=== PATIENT | female | born 1985 | race Caucasian/White ===

== ENCOUNTER 2018-07-09 01:20 | Inpatient (IN) | payer MEDICARE, OTHER ==
[2018-07-09] MEDS: NS 1,000 ML IV ×3 (02:30→20:30)
[2018-07-09] MEDS: ONDANSETRON 4MG/2ML VIAL (J2405) IV ×3 (02:35→16:15)
[2018-07-09] MEDS: MORPHINE 4 MG/ML 1ML VIAL/SYRINGE (J2270) IV ×3 (02:35→23:28)
[2018-07-09 02:36] LABS: VENOUS BASE EXCESS -11.9 (-2.0-2.0); VENOUS HCO3 13.7 MEQ/L (23.0-27.0); VENOUS O2 SATURATION 96.8 % (60.0-80.0); VENOUS PARTIAL PRESSURE CO2 30.9 mmHg (38.0-50.0); VENOUS PARTIAL PRESSURE O2 102.5 mmHg (30.0-50.0); VENOUS PH 7.264 UNITS (7.330-7.430); VENOUS STANDARD HCO3 15.4 MEQ/L; VENOUS TOTAL CO2 14.6 MEQ/L (24.0-28.0)
[2018-07-09 02:37] LABS: BASO # 0.1 10^3/uL (0.0-0.2); BASO % 1.1 % (0.0-1.0); CONTROL LINE HCG INT CTR LINE PRESENT; EOS % 0.4 % (0.0-3.0); HCG, SERUM QUALITATIVE NEGATIVE (NEGATIVE); HEMATOCRIT 45.9 % (36.0-47.0); HEMOGLOBIN 15.1 g/dl (12.0-15.5); IMMATURE GRANULOCYTE % 0.3 % (0-3.0); LYMPH % 39.7 % (24.0-44.0); MEAN CORPUSCULAR HEMOGLOBIN 33.6 pg (27.0-33.0); MEAN CORPUSCULAR HGB CONC 32.9 g/dl (32.0-36.5); MEAN CORPUSCULAR VOLUME 102.2 fl (80.0-96.0); MONO # 0.4 10^3/uL (0.0-0.8); NEUTROPHILS % 53.5 % (36.0-66.0); PLATELET COUNT, AUTOMATED 648 10^3/uL (150-450); RED BLOOD COUNT 4.49 10^6/uL (4.00-5.40); RED CELL DISTRIBUTION WIDTH 13.8 % (11.5-14.5); WHITE BLOOD COUNT 7.4 10^3/uL (4.0-10.0)
[2018-07-09 02:51] LABS: ALBUMIN 4.1 GM/DL (3.2-5.2); ALKALINE PHOSPHATASE 97 U/L (45-117); ALT/SGPT 44 U/L (12-78); ANION GAP 24 MEQ/L (8-16); AST/SGOT 18 U/L (7-37); BILIRUBIN,DIRECT < 0.1 MG/DL (0.0-0.2); BILIRUBIN,TOTAL 0.4 MG/DL (0.2-1.0); BLOOD UREA NITROGEN 12 MG/DL (7-18); CALCIUM LEVEL 9.6 MG/DL (8.5-10.1); CARBON DIOXIDE LEVEL 14 MEQ/L (21-32); CHLORIDE LEVEL 96 MEQ/L (98-107); CREATININE FOR GFR 0.97 MG/DL (0.55-1.30); GLOMERULAR FILTRATION RATE > 60.0 (>60); LIPASE 35 U/L (73-393); POTASSIUM SERUM 4.2 MEQ/L (3.5-5.1); SODIUM LEVEL 134 MEQ/L (136-145); TOTAL PROTEIN 8.2 GM/DL (6.4-8.2)
[2018-07-09 02:54] LABS: OSMOLALITY SERUM 307 MOSM/KG (275-295)
[2018-07-09 02:59] LABS: ACETONE/KETONE > 46.00 MG/DL (<2.81); GLUCOSE, FASTING 412 MG/DL (70-100)
[2018-07-09] MEDS: DILUENT IV (03:15)
[2018-07-09] MEDS ORDERED: INSULIN IV RATE CHANGE DOCUMENTATION ML/HR XX ×2 (03:15→03:30)
[2018-07-09] MEDS: NS IV (03:15)
[2018-07-09] MEDS: HumuLIN R (REGULAR) INSULIN (NovoLIN R) **100U/ML** PER UNIT IV (03:15)
[2018-07-09] MEDS: INSULIN HUMAN REGULAR 100 UNITS in NS 99 ML IV (03:30)
[2018-07-09] MEDS ORDERED: INSULIN HUMAN REGULAR 100 UNITS in NS 99 ML IV (03:30)
[2018-07-09] MEDS ORDERED: CREON-12 CAPSULE PO (04:00)
[2018-07-09] MEDS ORDERED: NS 1,000 ML IV ×6 (04:00→08:00)
[2018-07-09 04:01] LABS: BEDSIDE GLUCOSE 166 MG/DL (70-105)
[2018-07-09] MEDS ORDERED: ACETAMINOPHEN TAB 650MG DOSE (2X325MG) PO (04:45)
[2018-07-09 04:56] LABS: BEDSIDE GLUCOSE 117 MG/DL (70-105)
[2018-07-09] MEDS: D5W/0.45% SODIUM CHLORIDE 1,000 ML IV (05:15)
[2018-07-09 05:34] LABS: ESTIMATED AVERAGE GLUCOSE 258 MG/DL (60-110); HEMOGLOBIN A1c 10.6 %
[2018-07-09 05:42] LABS: ANION GAP 10 MEQ/L (8-16); BLOOD UREA NITROGEN 8 MG/DL (7-18); CALCIUM LEVEL 7.5 MG/DL (8.5-10.1); CARBON DIOXIDE LEVEL 20 MEQ/L (21-32); CHLORIDE LEVEL 113 MEQ/L (98-107); CREATININE FOR GFR 0.61 MG/DL (0.55-1.30); GLOMERULAR FILTRATION RATE > 60.0 (>60); GLUCOSE, FASTING 107 MG/DL (70-100); POTASSIUM SERUM 3.9 MEQ/L (3.5-5.1); SODIUM LEVEL 143 MEQ/L (136-145)
[2018-07-09 06:25] LABS: BEDSIDE GLUCOSE 160 MG/DL (70-105)
[2018-07-09] MEDS: traMADol 50 MG TAB PO ×3 (06:29→22:41)
[2018-07-09 07:13] LABS: BEDSIDE GLUCOSE 186 MG/DL (70-105)
[2018-07-09] MEDS ORDERED: LEVEMIR (INSULIN DETEMIR) 1 UNITS/0.01ML SC (07:15)
[2018-07-09] MEDS: CREON-24 CAPSULE PO ×3 (08:00→18:23)
[2018-07-09 08:06] LABS: BEDSIDE GLUCOSE 264 MG/DL (70-105)
[2018-07-09] MEDS ORDERED: PANTOPRAZOLE 40MG INJ (PROTONIX) (C9113) IV (09:00)
[2018-07-09 09:01] LABS: KETONE, URINE AUTO RFX 2+ mg/dL (NEGATIVE); LEUKOCYTE ESTERASE UR AUTO RFX NEGATIVE (NEGATIVE); MUCUS, URINE RFX SMALL (NEGATIVE); NITRITE, URINE AUTO RFX NEGATIVE (NEGATIVE); RBC, URINE AUTO RFX 0 /HPF (0-3); SQUAM EPITHELIAL CELL UR AURFX 6 /HPF (0-6); WBC, URINE AUTO RFX 2 /HPF (0-3)
[2018-07-09 09:35] LABS: BEDSIDE GLUCOSE 317 MG/DL (70-105)
[2018-07-09 09:44] LABS: ANION GAP 15 MEQ/L (8-16); BLOOD UREA NITROGEN 5 MG/DL (7-18); CALCIUM LEVEL 7.8 MG/DL (8.5-10.1); CARBON DIOXIDE LEVEL 15 MEQ/L (21-32); CHLORIDE LEVEL 108 MEQ/L (98-107); CREATININE FOR GFR 0.66 MG/DL (0.55-1.30); GLOMERULAR FILTRATION RATE > 60.0 (>60); GLUCOSE, FASTING 308 MG/DL (70-100); POTASSIUM SERUM 4.5 MEQ/L (3.5-5.1); SODIUM LEVEL 138 MEQ/L (136-145)
[2018-07-09] MEDS ORDERED: GLUCOSE 4 GM CHEW TABLET PO (10:00)
[2018-07-09] MEDS ORDERED: DEXTROSE 50% 50 ML SYRINGE IV (10:00)
[2018-07-09] MEDS ORDERED: GLUCAGON FOR INJ 1 MG VIAL (J1610) SC (10:00)
[2018-07-09 10:22] LABS: BEDSIDE GLUCOSE 284 MG/DL (70-105)
[2018-07-09] MEDS: LEVEMIR (INSULIN DETEMIR) 1 UNITS/0.01ML SC (10:34)
[2018-07-09] MEDS: ENOXAPARIN 40 MG/0.4 ML SYRINGE (J1650) SC (10:35)
[2018-07-09] MEDS: SODIUM BICARBONATE 325 MG TAB PO ×2 (10:45→14:10)
[2018-07-09] MEDS: PARoxetine 20 MG TAB PO (11:07)
[2018-07-09] MEDS: GABAPENTIN 300 MG CAP PO ×3 (11:07→20:31)
[2018-07-09 12:12] LABS: BEDSIDE GLUCOSE 286 MG/DL (70-105)
[2018-07-09] MEDS: HumaLOG INSULIN (NovoLOG) PER UNIT SC ×3 (12:33→21:00)
[2018-07-09 14:32] LABS: ANION GAP 9 MEQ/L (8-16); BLOOD UREA NITROGEN 3 MG/DL (7-18); CALCIUM LEVEL 8.2 MG/DL (8.5-10.1); CARBON DIOXIDE LEVEL 21 MEQ/L (21-32); CHLORIDE LEVEL 111 MEQ/L (98-107); CREATININE FOR GFR 0.81 MG/DL (0.55-1.30); GLOMERULAR FILTRATION RATE > 60.0 (>60); GLUCOSE, FASTING 207 MG/DL (70-100); POTASSIUM SERUM 3.6 MEQ/L (3.5-5.1); SODIUM LEVEL 141 MEQ/L (136-145)
[2018-07-09 15:06] LABS: BEDSIDE GLUCOSE 404 MG/DL (70-105)
[2018-07-09 16:28] LABS: BEDSIDE GLUCOSE 358 MG/DL (70-105)
[2018-07-09 17:59] LABS: BEDSIDE GLUCOSE 150 MG/DL (70-105)
[2018-07-09 18:30] LABS: ANION GAP 10 MEQ/L (8-16); BLOOD UREA NITROGEN 7 MG/DL (7-18); CALCIUM LEVEL 8.1 MG/DL (8.5-10.1); CARBON DIOXIDE LEVEL 25 MEQ/L (21-32); CHLORIDE LEVEL 109 MEQ/L (98-107); CREATININE FOR GFR 1.01 MG/DL (0.55-1.30); GLOMERULAR FILTRATION RATE > 60.0 (>60); GLUCOSE, FASTING 180 MG/DL (70-100); POTASSIUM SERUM 3.6 MEQ/L (3.5-5.1); SODIUM LEVEL 144 MEQ/L (136-145)
[2018-07-09 18:32] LABS: ACETONE/KETONE 1.29 MG/DL (<2.81)
[2018-07-09 21:19] LABS: BEDSIDE GLUCOSE 187 MG/DL (70-105)
[2018-07-09 22:58] LABS: ANION GAP 8 MEQ/L (8-16); BLOOD UREA NITROGEN 7 MG/DL (7-18); CALCIUM LEVEL 8.3 MG/DL (8.5-10.1); CARBON DIOXIDE LEVEL 26 MEQ/L (21-32); CHLORIDE LEVEL 109 MEQ/L (98-107); GLOMERULAR FILTRATION RATE > 60.0 (>60); GLUCOSE, FASTING 210 MG/DL (70-100); SODIUM LEVEL 143 MEQ/L (136-145)
[2018-07-10 01:34] LABS: BEDSIDE GLUCOSE 194 MG/DL (70-105)
[2018-07-10 03:34] LABS: ANION GAP 10 MEQ/L (8-16); BLOOD UREA NITROGEN 6 MG/DL (7-18); CALCIUM LEVEL 8.7 MG/DL (8.5-10.1); CARBON DIOXIDE LEVEL 25 MEQ/L (21-32); CHLORIDE LEVEL 109 MEQ/L (98-107); CREATININE FOR GFR 0.79 MG/DL (0.55-1.30); GLOMERULAR FILTRATION RATE > 60.0 (>60); GLUCOSE, FASTING 209 MG/DL (70-100); POTASSIUM SERUM 4.2 MEQ/L (3.5-5.1); SODIUM LEVEL 144 MEQ/L (136-145)
[2018-07-10] MEDS: MORPHINE 4 MG/ML 1ML VIAL/SYRINGE (J2270) IV (05:46)
[2018-07-10 06:08] LABS: BASO # 0.1 10^3/uL (0.0-0.2); EOS # 0.3 10^3/uL (0.0-0.50); EOS % 3.5 % (0.0-3.0); HEMATOCRIT 35.1 % (36.0-47.0); IMMATURE GRANULOCYTE % 0.1 % (0-3.0); LYMPH # 4.1 10^3/uL (1.5-4.5); LYMPH % 57.1 % (24.0-44.0); MEAN CORPUSCULAR HEMOGLOBIN 33.8 pg (27.0-33.0); MEAN CORPUSCULAR HGB CONC 34.2 g/dl (32.0-36.5); MEAN CORPUSCULAR VOLUME 98.9 fl (80.0-96.0); MONO # 0.4 10^3/uL (0.0-0.8); MONO % 5.2 % (0.0-5.0); NEUTROPHILS # 2.3 10^3/uL (1.8-7.7); NEUTROPHILS % 33.1 % (36.0-66.0); PLATELET COUNT, AUTOMATED 496 10^3/uL (150-450); RED BLOOD COUNT 3.55 10^6/uL (4.00-5.40); RED CELL DISTRIBUTION WIDTH 14.2 % (11.5-14.5); WHITE BLOOD COUNT 7.1 10^3/uL (4.0-10.0)
[2018-07-10 06:10] LABS: BEDSIDE GLUCOSE 202 MG/DL (70-105)
[2018-07-10 06:26] LABS: ANION GAP 8 MEQ/L (8-16); BLOOD UREA NITROGEN 5 MG/DL (7-18); CALCIUM LEVEL 8.3 MG/DL (8.5-10.1); CARBON DIOXIDE LEVEL 26 MEQ/L (21-32); CHLORIDE LEVEL 109 MEQ/L (98-107); CREATININE FOR GFR 0.52 MG/DL (0.55-1.30); GLOMERULAR FILTRATION RATE > 60.0 (>60); GLUCOSE, FASTING 214 MG/DL (70-100); POTASSIUM SERUM 4.1 MEQ/L (3.5-5.1); SODIUM LEVEL 143 MEQ/L (136-145)
[2018-07-10] MEDS ORDERED: SENOKOT S TAB PO (08:15)
[2018-07-10] MEDS ORDERED: PILL CRUSHER/CUTTER 1 EACH XX (08:30)
[2018-07-10] MEDS: GABAPENTIN 300 MG CAP PO (09:29)
[2018-07-10] MEDS: PARoxetine 20 MG TAB PO (09:29)
[2018-07-10] MEDS: ENOXAPARIN 40 MG/0.4 ML SYRINGE (J1650) SC (09:29)
[2018-07-10] MEDS: HumaLOG INSULIN (NovoLOG) PER UNIT SC (09:30)
[2018-07-10] MEDS: MORPHINE 30 MG TAB **MSIR PO (10:42)
[2018-07-10] MEDS: CREON-24 CAPSULE PO (10:45)
[2018-07-10 10:46] LABS: ANION GAP 8 MEQ/L (8-16); BLOOD UREA NITROGEN 4 MG/DL (7-18); CALCIUM LEVEL 8.1 MG/DL (8.5-10.1); CARBON DIOXIDE LEVEL 26 MEQ/L (21-32); CHLORIDE LEVEL 109 MEQ/L (98-107); CREATININE FOR GFR 0.57 MG/DL (0.55-1.30); GLOMERULAR FILTRATION RATE > 60.0 (>60); GLUCOSE, FASTING 224 MG/DL (70-100); SODIUM LEVEL 143 MEQ/L (136-145)
[2018-07-10] MEDS ORDERED: MORPHINE 30 MG TAB **MSIR PO (12:00)
== END 2018-07-10 11:11 | disposition home or self-care (01) | DRG 639 ==
LOC: M ED 01:20 → M ED INP 03:55 → M ICU 04:46 → M MSPAV 23:12
DX: E10.10 Type 1 diabetes mellitus with ketoacidosis without coma (principal); K21.9 Gastro-esophageal reflux disease without esophagitis; F32.9 Major depressive disorder, single episode, unspecified; F41.9 Anxiety disorder, unspecified; Z90.410 Acquired total absence of pancreas; E10.40 Type 1 diabetes mellitus with diabetic neuropathy, unspecified; Z79.4 Long term (current) use of insulin; Z79.899 Other long term (current) drug therapy; Z88.0 Allergy status to penicillin; Z88.8 Allergy status to other drugs, medicaments and biological substances; Z91.14 Patient's other noncompliance with medication regimen; E10.21 Type 1 diabetes mellitus with diabetic nephropathy

== ENCOUNTER 2018-07-11 18:19 | Emergency (ER) | payer MEDICARE, OTHER ==
[2018-07-11] MEDS: NS 500 ML IV (19:30)
[2018-07-11 19:57] LABS: BASO % 0.3 % (0.0-1.0); HEMATOCRIT 41.4 % (36.0-47.0); IMMATURE GRANULOCYTE % 0.2 % (0-3.0); LYMPH # 0.5 10^3/uL (1.5-4.5); LYMPH % 8.8 % (24.0-44.0); MEAN CORPUSCULAR HEMOGLOBIN 34.2 pg (27.0-33.0); MEAN CORPUSCULAR HGB CONC 34.1 g/dl (32.0-36.5); MEAN CORPUSCULAR VOLUME 100.5 fl (80.0-96.0); MONO # 0.2 10^3/uL (0.0-0.8); MONO % 3.2 % (0.0-5.0); NEUTROPHILS # 5.4 10^3/uL (1.8-7.7); NEUTROPHILS % 87.5 % (36.0-66.0); PLATELET COUNT, AUTOMATED 479 10^3/uL (150-450); RED BLOOD COUNT 4.12 10^6/uL (4.00-5.40); RED CELL DISTRIBUTION WIDTH 14.1 % (11.5-14.5); WHITE BLOOD COUNT 6.2 10^3/uL (4.0-10.0)
[2018-07-11 20:03] LABS: HEMOGLOBIN 14.1 g/dl (12.0-15.5)
[2018-07-11] MEDS: MORPHINE 4 MG/ML 1ML VIAL/SYRINGE (J2270) IV ×2 (20:06→21:41)
[2018-07-11] MEDS: ONDANSETRON 4MG/2ML VIAL (J2405) IV (20:06)
[2018-07-11] MEDS: GASTROGRAFIN SOLUTION 30ML PO ×2 (20:07→20:50)
[2018-07-11 20:15] LABS: CONTROL LINE HCG INT CTR LINE PRESENT; HCG, SERUM QUALITATIVE NEGATIVE (NEGATIVE)
[2018-07-11 20:23] LABS: ACETONE/KETONE 15.76 MG/DL (<2.81); ALBUMIN 3.1 GM/DL (3.2-5.2); ALBUMIN/GLOBULIN RATIO 0.97 (1.00-1.93); ALKALINE PHOSPHATASE 66 U/L (45-117); ALT/SGPT 45 U/L (12-78); ANION GAP 9 MEQ/L (8-16); AST/SGOT 67 U/L (7-37); BILIRUBIN,DIRECT 0.1 MG/DL (0.0-0.2); BILIRUBIN,TOTAL 0.3 MG/DL (0.2-1.0); BLOOD UREA NITROGEN 8 MG/DL (7-18); CALCIUM LEVEL 8.2 MG/DL (8.5-10.1); CARBON DIOXIDE LEVEL 32 MEQ/L (21-32); CHLORIDE LEVEL 97 MEQ/L (98-107); CREATININE FOR GFR 0.53 MG/DL (0.55-1.30); GLOMERULAR FILTRATION RATE > 60.0 (>60); GLUCOSE, FASTING 386 MG/DL (70-100); LIPASE 27 U/L (73-393); POTASSIUM SERUM 3.6 MEQ/L (3.5-5.1); SODIUM LEVEL 138 MEQ/L (136-145); TOTAL PROTEIN 6.3 GM/DL (6.4-8.2)
[2018-07-11 20:25] LABS: LACTIC ACID SEPSIS PROTOCOL 1.5 MMOL/L (0.4-2.0)
[2018-07-11] MEDS: HumuLIN R (REGULAR) INSULIN (NovoLIN R) **100U/ML** PER UNIT IV (20:51)
[2018-07-11] MEDS ORDERED: ISOVUE-370 76% 100ML VIAL (Q9967) As Ordered (21:33)
[2018-07-11 21:38] LABS: BEDSIDE GLUCOSE 260 MG/DL (70-105)
[2018-07-11] MEDS: HYDROMORPHONE HCL 0.5 MG/ 0.5 ML SYRINGE (J1170 PER 1) IM (22:37)
[2018-07-16 08:27] LABS: BEDSIDE GLUCOSE 94 MG/DL (70-105)
== END 2018-07-11 23:46 | disposition home or self-care (01) ==
LOC: M ED 18:19
DX: E10.65 Type 1 diabetes mellitus with hyperglycemia (principal); E10.10 Type 1 diabetes mellitus with ketoacidosis without coma; K76.89 Other specified diseases of liver; D75.9 Disease of blood and blood-forming organs, unspecified; Z88.0 Allergy status to penicillin; F41.9 Anxiety disorder, unspecified; F32.9 Major depressive disorder, single episode, unspecified; Z88.8 Allergy status to other drugs, medicaments and biological substances; Z79.899 Other long term (current) drug therapy; Z87.19 Personal history of other diseases of the digestive system; Z90.410 Acquired total absence of pancreas; Z90.81 Acquired absence of spleen; Z90.89 Acquired absence of other organs; Z90.49 Acquired absence of other specified parts of digestive tract
CPT/HCPCS: J2270

== ENCOUNTER → 2018-08-20 | Outpatient (REF) | payer MEDICARE, OTHER ==
[2018-08-20 13:46] LABS: APPEARANCE, URINE CLEAR (CLEAR); BACTERIA, URINE AUTO NEGATIVE (NEGATIVE); BILIRUBIN, URINE AUTO NEGATIVE (NEGATIVE); BLOOD, URINE BLOOD NEGATIVE (NEGATIVE); COLOR, URINE YELLOW (YELLOW); GLUCOSE, URINE (UA) AUTO 3+ mg/dL (NEGATIVE); KETONE, URINE AUTO NEGATIVE (NEGATIVE); LEUKOCYTE ESTERASE, URINE AUTO NEGATIVE (NEGATIVE); MUCUS, URINE SMALL (NEGATIVE); NITRITE, URINE AUTO NEGATIVE (NEGATIVE); PROTEIN, URINE AUTO NEGATIVE (NEGATIVE); RBC, URINE AUTO 1 /HPF (0-3); SPECIFIC GRAVITY URINE AUTO 1.021 (1.002-1.035); SQUAMOUS EPITHELIAL CELL UR AU 0 /HPF (0-6); UROBILINOGEN, URINE AUTO 0.2 mg/dL (0.0-2.0); WBC, URINE AUTO 0 /HPF (0-3)
== END ==
LOC: M SMT 13:08
DX: N32.9 Bladder disorder, unspecified (principal); N13.30 Unspecified hydronephrosis; Z79.4 Long term (current) use of insulin; Z79.899 Other long term (current) drug therapy
CPT/HCPCS: 81001

== ENCOUNTER 2018-09-24 13:09 | Emergency (ER) | payer MEDICARE, OTHER ==
[2018-09-24 14:08] LABS: MEAN CORPUSCULAR HEMOGLOBIN 33.8 pg (27.0-33.0); MEAN CORPUSCULAR HGB CONC 33.3 g/dl (32.0-36.5); MEAN CORPUSCULAR VOLUME 101.4 fl (80.0-96.0); PLATELET COUNT, AUTOMATED 427 10^3/uL (150-450); RED BLOOD COUNT 4.14 10^6/uL (4.00-5.40); RED CELL DISTRIBUTION WIDTH 13.3 % (11.5-14.5); WHITE BLOOD COUNT 5.2 10^3/uL (4.0-10.0)
[2018-09-24 14:23] LABS: CONTROL LINE HCG INT CTR LINE PRESENT; HCG, SERUM QUALITATIVE POSITIVE (NEGATIVE)
[2018-09-24 14:30] LABS: INR 0.91; PROTHROMBIN TIME 12.3 SECONDS (12.1-14.4)
[2018-09-24 14:34] LABS: ANION GAP 9 MEQ/L (8-16); BLOOD UREA NITROGEN 7 MG/DL (7-18); CALCIUM LEVEL 9.5 MG/DL (8.5-10.1); CARBON DIOXIDE LEVEL 28 MEQ/L (21-32); CHLORIDE LEVEL 96 MEQ/L (98-107); CREATININE FOR GFR 0.54 MG/DL (0.55-1.30); GLOMERULAR FILTRATION RATE > 60.0 (>60); GLUCOSE, FASTING 342 MG/DL (70-100); POTASSIUM SERUM 5.3 MEQ/L (3.5-5.1); SODIUM LEVEL 133 MEQ/L (136-145)
[2018-09-24] MEDS: GASTROGRAFIN SOLUTION 30ML PO ×2 (14:40→15:15)
[2018-09-24] MEDS: ONDANSETRON 4MG/2ML VIAL (J2405) IV (14:40)
[2018-09-24] MEDS: MORPHINE 4 MG/ML 1ML VIAL/SYRINGE (J2270) IV (14:41)
[2018-09-24] MEDS: NS 1,000 ML IV (14:52)
[2018-09-24 14:58] LABS: KETONE, URINE AUTO RFX 1+ mg/dL (NEGATIVE); LEUKOCYTE ESTERASE UR AUTO RFX NEGATIVE (NEGATIVE); NITRITE, URINE AUTO RFX NEGATIVE (NEGATIVE); RBC, URINE AUTO RFX 0 /HPF (0-3); SQUAM EPITHELIAL CELL UR AURFX 1 /HPF (0-6); WBC, URINE AUTO RFX 0 /HPF (0-3)
[2018-09-24] MEDS ORDERED: ISOVUE-370 76% 100ML VIAL (Q9967) As Ordered (15:15)
[2018-09-24] MEDS: MORPHINE 2 MG/ML 1ML SYRINGE (J2270) IV ×2 (15:53→17:26)
[2018-09-24 15:59] LABS: HCG, SERUM QUANTITATIVE < 1.0 MIU/ML
== END 2018-09-24 17:52 | disposition home or self-care (01) ==
LOC: M ED 13:09
DX: S30.1XXA Contusion of abdominal wall, initial encounter (principal); V43.52XA Car driver injured in collision with other type car in traffic accident, initial encounter; Y92.9 Unspecified place or not applicable; Y93.9 Activity, unspecified; Y99.9 Unspecified external cause status; E11.9 Type 2 diabetes mellitus without complications; R16.0 Hepatomegaly, not elsewhere classified; K59.00 Constipation, unspecified; Z79.4 Long term (current) use of insulin; Z79.899 Other long term (current) drug therapy; Z88.0 Allergy status to penicillin; Z88.8 Allergy status to other drugs, medicaments and biological substances
CPT/HCPCS: J2270

== ENCOUNTER 2018-09-27 21:56 | Emergency (ER) | payer MEDICARE, OTHER ==
[2018-09-27] MEDS: NS 1,000 ML IV (22:45)
[2018-09-27] MEDS: HumuLIN R (REGULAR) INSULIN (NovoLIN R) **100U/ML** PER UNIT IV ×2 (22:45→23:56)
[2018-09-27 22:53] LABS: BASO # 0.1 10^3/uL (0.0-0.2); BASO % 1.1 % (0.0-1.0); EOS # 0.1 10^3/uL (0.0-0.50); EOS % 1.1 % (0.0-3.0); HEMOGLOBIN 14.3 g/dl (12.0-15.5); IMMATURE GRANULOCYTE % 0.3 % (0-3.0); LYMPH # 3.2 10^3/uL (1.5-4.5); LYMPH % 47.7 % (24.0-44.0); MEAN CORPUSCULAR HEMOGLOBIN 33.5 pg (27.0-33.0); MEAN CORPUSCULAR HGB CONC 33.3 g/dl (32.0-36.5); MEAN CORPUSCULAR VOLUME 100.7 fl (80.0-96.0); MONO # 0.4 10^3/uL (0.0-0.8); NEUTROPHILS # 2.9 10^3/uL (1.8-7.7); NEUTROPHILS % 43.8 % (36.0-66.0); PLATELET COUNT, AUTOMATED 504 10^3/uL (150-450); RED BLOOD COUNT 4.27 10^6/uL (4.00-5.40); RED CELL DISTRIBUTION WIDTH 12.9 % (11.5-14.5); WHITE BLOOD COUNT 6.7 10^3/uL (4.0-10.0)
[2018-09-27 23:26] LABS: ACETONE/KETONE 8.98 MG/DL (<2.81); ALBUMIN 3.7 GM/DL (3.2-5.2); ALBUMIN/GLOBULIN RATIO 1.03 (1.00-1.93); ALKALINE PHOSPHATASE 89 U/L (45-117); ALT/SGPT 47 U/L (12-78); ANION GAP 16 MEQ/L (8-16); AST/SGOT 30 U/L (7-37); BILIRUBIN,DIRECT 0.1 MG/DL (0.0-0.2); BILIRUBIN,TOTAL 0.2 MG/DL (0.2-1.0); BLOOD UREA NITROGEN 11 MG/DL (7-18); CALCIUM LEVEL 9.2 MG/DL (8.5-10.1); CARBON DIOXIDE LEVEL 21 MEQ/L (21-32); CHLORIDE LEVEL 96 MEQ/L (98-107); CREATININE FOR GFR 1.06 MG/DL (0.55-1.30); GLOMERULAR FILTRATION RATE > 60.0 (>60); GLUCOSE, FASTING 498 MG/DL (70-100); LIPASE 35 U/L (73-393); POTASSIUM SERUM 4.2 MEQ/L (3.5-5.1); SODIUM LEVEL 133 MEQ/L (136-145); TOTAL PROTEIN 7.3 GM/DL (6.4-8.2)
[2018-09-27 23:44] LABS: BEDSIDE GLUCOSE 395 MG/DL (70-105)
[2018-09-28 00:22] LABS: BEDSIDE GLUCOSE 295 MG/DL (70-105)
[2018-09-28] MEDS: HumuLIN R (REGULAR) INSULIN (NovoLIN R) **100U/ML** PER UNIT IV (00:30)
[2018-09-28] MEDS: traMADol 50 MG TAB PO (00:30)
[2018-09-28] MEDS: NORCO, ANEXSIA 5/325MG TABLET (HYDROcodone/ACETAMINOPHEN) PO (00:45)
[2018-09-28 01:10] LABS: BEDSIDE GLUCOSE 144 MG/DL (70-105)
[2018-09-30 16:02] LABS: BEDSIDE GLUCOSE 493 MG/DL (70-105)
== END 2018-09-28 01:26 | disposition home or self-care (01) ==
LOC: M ED 09-28 01:26
DX: E11.65 Type 2 diabetes mellitus with hyperglycemia (principal); Z91.14 Patient's other noncompliance with medication regimen; K21.9 Gastro-esophageal reflux disease without esophagitis; F33.9 Major depressive disorder, recurrent, unspecified; Z90.49 Acquired absence of other specified parts of digestive tract; Z88.0 Allergy status to penicillin; Z88.8 Allergy status to other drugs, medicaments and biological substances
CPT/HCPCS: 83690

== ENCOUNTER → 2018-12-19 | Outpatient (CLI) | payer MEDICARE, OTHER ==
[~2018-12-19] MED LIST: CREO12CA PO; CREO24CA PO; GABA-843; GABA-843 PO; GABA600T4 PO; INSUH10VL SC; MORP15TA2 PO; NEXI1CAP4 PO; NEXI20CA PO; NORCOTAB PO; PAXI20TA29 PO; SENO8.6T10 PO; TRAM50TA2 PO; TYLE1TAB5 PO; VITA500T3 PO
== END ==
LOC: M LAB 08:42
PROVIDERS: ATTEND Internal Medicine Endocrinology, Diabetes & Metabolism
DX: E10.65 Type 1 diabetes mellitus with hyperglycemia (principal)

== ENCOUNTER → 2019-01-05 | Outpatient (CLI) | payer MEDICARE, OTHER ==
[2019-01-05 11:26] LABS: BASO # 0.1 10^3/uL (0.0-0.2); BASO % 1.4 % (0.0-1.0); EOS # 0.3 10^3/uL (0.0-0.50); EOS % 3.3 % (0.0-3.0); HEMATOCRIT 40.4 % (36.0-47.0); HEMOGLOBIN 13.5 g/dl (12.0-15.5); LYMPH # 2.8 10^3/uL (1.5-4.5); LYMPH % 29.3 % (24.0-44.0); MEAN CORPUSCULAR HEMOGLOBIN 33.9 pg (27.0-33.0); MEAN CORPUSCULAR HGB CONC 33.4 g/dl (32.0-36.5); MEAN CORPUSCULAR VOLUME 101.5 fl (80.0-96.0); MONO # 0.5 10^3/uL (0.0-0.8); MONO % 5.6 % (0.0-5.0); NEUTROPHILS # 5.8 10^3/uL (1.8-7.7); NEUTROPHILS % 60.1 % (36.0-66.0); PLATELET COUNT, AUTOMATED 586 10^3/uL (150-450); RED BLOOD COUNT 3.98 10^6/uL (4.00-5.40); WHITE BLOOD COUNT 9.6 10^3/uL (4.0-10.0)
[2019-01-05 12:13] LABS: ALBUMIN 3.9 GM/DL (3.2-5.2); BILIRUBIN,DIRECT 0.1 MG/DL (0.0-0.2); BILIRUBIN,TOTAL 0.3 MG/DL (0.2-1.0); PERCENT SATURATION 12.9 % (13.2-45.0); TOTAL PROTEIN 7.4 GM/DL (6.4-8.2)
== END ==
LOC: M LAB 10:52
PROVIDERS: ATTEND Internal Medicine Gastroenterology
DX: R10.30 Lower abdominal pain, unspecified (principal); D50.9 Iron deficiency anemia, unspecified

== ENCOUNTER → 2019-02-03 | Outpatient (CLI) | payer MEDICARE, OTHER ==
[~2019-02-03] MED LIST changes: +E-Z-GAS II EFFERVESCENT PACKET (SODIUM BICARB./CITRIC ACID/SIMETHICONE) As Ordered ONE; +E-Z-HD 98% w/w 340GM SUSP BTL As Ordered ONE; +E-Z-PAQUE 96% w/w SUSP 176GM BTL As Ordered ONE; +HYDR-3716; +LYRI150C; +LYRI75CA; +PARO20TA3
--- NOTE | 2019-02-04 09:08 | REP ---
UPPER GI AIR CONTRAST AND SMALL BOWEL FOLLOW THROUGH The procedure was performed under the direct supervision of Dr. Lr. The images were reviewed with Dr. Lr The body cleaner film shows no organomegaly or pathological masses. The intestinal gas pattern is non-specific. There are surgical clips noted in the epigastric region and left abdomen. There is a calcification in the liver which is seen on a previous CT scan dated 09/24/2018. Liquid barium and gas producing crystals were given in the erect position as well as liquid barium in the prone oblique position in order to perform a double contrast upper GI examination. Additionally liquid barium was given at the end of the examination in order to perform a small bowel follow through. The oral and pharyngeal stages of deglutition are unremarkable. Esophageal transport is prompt and efficient and there is no esophagitis, stricture, mucosal ring or hiatal hernia. There is gastroesophageal reflux demonstrated to above the level of the phylicia. The patient was unable to retain the air from crystals therefore evaluation of the stomach is limited due to lack of distension. The stomach cox are normally outlined . The rugal folds are smooth and regular. There is no evidence of gastritis neoplasm or ulcer disease. Note is made of reflux of contrast into the biliary ducts. There are thickened folds in the duodenum which may represent duodenitis. There is no sherita ulcer identified. There there are postsurgical changes of the duodenum consistent with the patient's history of a Whipple procedure. There is no evidence of stricture or obstruction at the anastomosis. The barium column was followed through the small bowel to the level of the terminal ileum. Small bowel transit time is approximately 105 minutes. During fluoroscopy gentle palpation shows all loops are freely movable and pliable. There are no fixed or angulated loops. The small bowel mucosal pattern is normal in course and caliber. There is no transition to suggest a partial small-bowel obstruction. Spot filming of the terminal ileum shows it to be unremarkable. Impression: 1. There is gastroesophageal reflux demonstrated to above the level of the phylicia. 2. There are thickened folds in the duodenum which may represent duodenitis. There is no sherita ulcer identified. 3. Postsurgical changes of the duodenum consistent with the patient's history of Whipple procedure. There is no evidence of stricture or obstruction through the anastomosis. 4. Small bowel follow-through within normal limits. 5.7 minutes of fluoro time was utilized for this procedure. Reviewed by GARFIELD Dean 02/03/2019 04:24 P Electronically Signed by Héctor Lr MD 02/04/2019 08:59 A
[2019-02-10 00:08] LABS: FATS NEUTRAL Increased (.); FATS TOTAL Increased (.); PANCREATIC ELASTASE STOOL <50 (>200)
== END ==
LOC: M RAD 08:09
PROVIDERS: ATTEND Internal Medicine Gastroenterology
DX: K91.2 Postsurgical malabsorption, not elsewhere classified (principal)

== ENCOUNTER 2019-05-28 17:38 | Emergency (ER) | payer MEDICARE, OTHER ==
[~2019-05-28] VITALS: Ht 160 cm; Wt 40.9 kg
[~2019-05-28 17:38] MED LIST changes: +CYAN500T8 PO; -E-Z-GAS II EFFERVESCENT PACKET (SODIUM BICARB./CITRIC ACID/SIMETHICONE) As Ordered ONE; -E-Z-HD 98% w/w 340GM SUSP BTL As Ordered ONE; -E-Z-PAQUE 96% w/w SUSP 176GM BTL As Ordered ONE; +HYDR-3715 PO; -LYRI150C; +LYRI150C PO; -NORCOTAB PO; -VITA500T3 PO
[2019-05-28] MEDS ORDERED: ONDANSETRON 4MG/2ML VIAL (J2405) IV ONE (18:15)
[2019-05-28] MEDS ORDERED: NS 1,000 ML IV ONE (18:15)
[2019-05-28 18:56] LABS: BASO # 0.1 10^3/uL (0.0-0.2); BASO % 1.2 % (0.0-1.0); EOS # 0.2 10^3/uL (0.0-0.50); EOS % 2.6 % (0.0-3.0); HEMATOCRIT 38.3 % (36.0-47.0); LYMPH # 2.6 10^3/uL (1.5-4.5); LYMPH % 30.2 % (24.0-44.0); MEAN CORPUSCULAR HEMOGLOBIN 32.7 pg (27.0-33.0); MEAN CORPUSCULAR HGB CONC 33.9 g/dl (32.0-36.5); MEAN CORPUSCULAR VOLUME 96.5 fl (80.0-96.0); MONO # 0.6 10^3/uL (0.0-0.8); MONO % 6.6 % (0.0-5.0); NEUTROPHILS # 5.1 10^3/uL (1.8-7.7); NEUTROPHILS % 59.2 % (36.0-66.0); PLATELET COUNT, AUTOMATED 603 10^3/uL (150-450); RED BLOOD COUNT 3.97 10^6/uL (4.00-5.40); WHITE BLOOD COUNT 8.5 10^3/uL (4.0-10.0)
[2019-05-28] MEDS ORDERED: NS 500 ML IV ONE (19:00)
[2019-05-28 19:14] LABS: ALBUMIN 2.9 GM/DL (3.2-5.2); ALT/SGPT 20 U/L (12-78); BILIRUBIN,DIRECT < 0.1 MG/DL (0.0-0.2); BILIRUBIN,TOTAL 0.2 MG/DL (0.2-1.0); LIPASE 45 U/L (73-393)
[2019-05-28] MEDS ORDERED: LOES1TAB7 PO (19:17)
[2019-05-28] MEDS ORDERED: PARO30TA3 PO (19:17)
[2019-05-28] MEDS ORDERED: MORP15TA2 PO (19:17)
[2019-05-28 19:29] LABS: HCG, SERUM QUALITATIVE NEGATIVE (NEGATIVE)
[2019-05-28] MEDS ORDERED: PREGABALIN 75 MG CAP(LYRICA) PO ONE (20:00)
[2019-05-28] MEDS ORDERED: PILL CUTTER 1 EACH XX ONE (20:18)
--- NOTE | 2019-05-28 20:29 | ECGEPIP ---
[facility] - ED Test Date: 2019-05-28 Pat Name: SARAVANAN VELOZ Department: Room: - Gender: Female Special Events Assistant: RICKIE : 1985 Requested By: Jana Wei Order Number: [id number] Reading MD: Hadley Locke Measurements Intervals [place] Rate: 107 P: 29 PA: 101 QRS: 25 QRSD: 86 T: 57 QT: 340 QTc: 455 Interpretive Statements SINUS TACHYCARDIA WITH SHORT PA INTERVAL LEFT ATRIAL ENLARGEMENT INCOMPLETE RIGHT BUNDLE BRANCH BLOCK NO PRIORS FOR COMPARISON MODERATE T-WAVE ABNORMALITY, CONSIDER ANTERIOR ISCHEMIA Electronically Signed on 05-28-2019 20:29:08 EDT by Hadley Locke
[2019-05-28] MEDS ORDERED: MORPHINE 30 MG TAB **MSIR PO ONE (20:30)
[2019-05-28] MEDS ORDERED: ONDA4TAB6 PO (21:29)
[2019-05-28 21:36] VITALS: BP 119/74
[2019-06-19] MEDS ORDERED: NEXI40CA PO (10:08)
[2019-06-19] MEDS ORDERED: DRON2.5C11 PO (10:08)
[2019-10-27] MEDS ORDERED: GABA-843 PO ×2 (15:35)
[2019-10-27] MEDS ORDERED: DULO1CAP4 PO (15:35)
[2019-10-27] MEDS ORDERED: TRAM50TA2 PO (15:35)
[2019-10-27] MEDS ORDERED: TRES1INJ2 SC (15:35)
[2019-10-27] MEDS ORDERED: VITA1CAP25 PO (15:35)
[2019-10-27] MEDS ORDERED: PANT40TA3 PO (15:35)
[2019-10-27] MEDS ORDERED: NOVOINJ3 SQ (15:35)
== END 2019-05-28 21:38 | disposition home or self-care (01) ==
LOC: M ED 17:38
DX: R73.9 Hyperglycemia, unspecified (principal); I45.19 Other right bundle-branch block; R10.9 Unspecified abdominal pain; D64.9 Anemia, unspecified; Z87.19 Personal history of other diseases of the digestive system; Z79.899 Other long term (current) drug therapy; Z79.4 Long term (current) use of insulin; Z88.0 Allergy status to penicillin; Z88.8 Allergy status to other drugs, medicaments and biological substances
CPT/HCPCS: 36600; 80047; 80076; 82803; 83690; 84703; 85025; 93005; 96361; 96374; 99284; J2405

== ENCOUNTER → 2019-06-19 | Outpatient (CLI) | payer MEDICARE, OTHER ==
[~2019-06-19] MED LIST changes: +DRON2.5C11 PO; +LOES1TAB7; +NEXI40CA PO; +ONDA4TAB6 PO; +PARO30TA3 PO
[2019-06-19 11:30] LABS: BASO # 0.1 10^3/uL (0.0-0.2); BASO % 1.7 % (0.0-1.0); EOS # 0.4 10^3/uL (0.0-0.50); HEMOGLOBIN 12.6 g/dl (12.0-15.5); LYMPH # 3.6 10^3/uL (1.5-4.5); LYMPH % 49.9 % (24.0-44.0); MEAN CORPUSCULAR HEMOGLOBIN 32.2 pg (27.0-33.0); MEAN CORPUSCULAR HGB CONC 33.2 g/dl (32.0-36.5); MEAN CORPUSCULAR VOLUME 97.2 fl (80.0-96.0); MONO # 0.4 10^3/uL (0.0-0.8); MONO % 6.1 % (0.0-5.0); NEUTROPHILS # 2.6 10^3/uL (1.8-7.7); NEUTROPHILS % 36.9 % (36.0-66.0); PLATELET COUNT, AUTOMATED 693 10^3/uL (150-450); RED BLOOD COUNT 3.91 10^6/uL (4.00-5.40); WHITE BLOOD COUNT 7.2 10^3/uL (4.0-10.0)
[2019-06-19 12:53] LABS: IRON (FE) 34 UG/DL (50-170); PERCENT SATURATION 6.1 % (13.2-45.0); TOTAL IRON BINDING CAPACITY 556 UG/DL (250-450)
[2019-06-19 13:03] LABS: FOLATE 12.4 NG/ML; VITAMIN B12 LEVEL 901 PG/ML
[2019-06-19 13:49] LABS: H PYLORI QUALITATIVE IgG NEGATIVE (NEGATIVE)
== END ==
LOC: M LAB 11:06
PROVIDERS: ATTEND Internal Medicine Gastroenterology
DX: K86.81 Exocrine pancreatic insufficiency (principal)

== ENCOUNTER → 2019-06-22 | Outpatient (REF) | payer MEDICARE, OTHER ==
[2019-07-02 08:06] LABS: FATS NEUTRAL Normal (.); FATS TOTAL Normal (.); PANCREATIC ELASTASE STOOL <50 (>200)
== END ==
LOC: M LAB REF 10:32
PROVIDERS: ATTEND Internal Medicine Gastroenterology
DX: K86.81 Exocrine pancreatic insufficiency (principal)

== ENCOUNTER 2019-06-23 06:44 | Day surgery (SDC) | payer MEDICARE, OTHER ==
[~2019-06-23] VITALS: Ht 160 cm; Wt 39.6 kg
[~2019-06-23 06:44] MED LIST changes: +NS 1,000 ML IV ONE
[2019-06-23] MEDS ORDERED: PROPOFOL 200 MG/20 ML VIAL As Ordered ONE (07:05)
[2019-06-23] MEDS ORDERED: LIDOCAINE 2% INJ 100 MG/5 ML SDV (FOR ANES.) As Ordered ONE (07:05)
[2019-06-23] MEDS ORDERED: fentaNYL 100 MCG/2 ML INJECTION (J3010) As Ordered ONE (07:07)
--- NOTE | 2019-06-23 08:15 | ROOR ---
Patient Name: Lizbeth Chandra Procedure Date: 06/23/2019 7:38 AM Date of : 1985 Age: 34 Room: [facility] Gender: Female Note Status: Finalized Procedure: Upper GI endoscopy Indications: Nausea with vomiting Providers: Vipul Prasad MD Referring MD: TERRY STEWART MD Requesting Provider: Medicines: Monitored Anesthesia Care Complications: No immediate complications. Procedure: Pre-Anesthesia Assessment: - Prior to the procedure, a History and Physical was performed, and patient medications and allergies were reviewed. The patient is competent. The risks and benefits of the procedure and the sedation options and risks were discussed with the patient. All questions were answered and informed consent was obtained. Patient identification and proposed procedure were verified by the physician, the nurse and the anesthesiologist in the procedure room. Mental Status Examination: normal. Airway Examination: normal oropharyngeal airway and neck mobility. Respiratory Examination: clear to auscultation. CV Examination: normal. Prophylactic Antibiotics: The patient does not require prophylactic antibiotics. Prior Anticoagulants: The patient has taken no previous anticoagulant or antiplatelet agents. ASA Grade Assessment: III - A patient with severe systemic disease. After reviewing the risks and benefits, the patient was deemed in satisfactory condition to undergo the procedure. The anesthesia plan was to use monitored anesthesia care (MAC). Immediately prior to administration of medications, the patient was re-assessed for adequacy to receive sedatives. The heart rate, respiratory rate, oxygen saturations, blood pressure, adequacy of pulmonary ventilation, and response to care were monitored throughout the procedure. The physical status of the patient was re-assessed after the procedure. The Endoscope was introduced through the mouth, and advanced to the second part of duodenum. The upper GI endoscopy was accomplished without difficulty. The patient tolerated the procedure well. Findings: The examined esophagus was normal. The Z-line was regular and was found in the distal esophagus. A medium amount of food (residue) was found in the gastric fundus and in the gastric body. Lavage of the area was performed using a moderate amount of sterile water, resulting in clearance with fair visualization. A benign-appearing, intrinsic moderate stenosis was found in the prepyloric region of the stomach. This was traversed. Biopsies were taken with a cold forceps for histology. Verification of patient identification for the specimen was done by the physician and nurse using the patient's name, date and medical record number. Estimated blood loss was minimal. There was evidence of a widely patent duodenoenterostomy in the first portion of the duodenum. This was characterized by healthy appearing mucosa. Impression: - Normal esophagus. - Z-line regular, in the distal esophagus. - A medium amount of food (residue) in the stomach. - Gastric stenosis was found in the prepyloric region of the stomach. Biopsied. - Widely patent duodenoenterostomy, characterized by healthy appearing mucosa was found. Recommendation: - Patient has a contact number available for emergencies. The signs and symptoms of potential delayed complications were discussed with the patient. Return to normal activities tomorrow. Written discharge instructions were provided to the patient. - Pureed diet. - Gastroparesis diet. - Follow an antireflux regimen. - Use a proton pump inhibitor PO BID for 12 weeks. - Await pathology results. - Repeat upper endoscopy in 3 months to evaluate the response to therapy. - Return to GI clinic in [facility] (address [address], [address], [place] [address]) in 4 -- 6 weeks. Please call GI clinic @ [phone] for apppointment date and time. - Return to primary care physician. Vipul Prasad MD Vipul Prasad MD 06/23/2019 8:14:52 AM Electronically signed by Vipul Prasad MD Number of Addenda: 0 Note Initiated On: 06/23/2019 7:38 AM Estimated Blood Loss: Estimated blood loss was minimal.
[2019-06-23 08:22] VITALS: BP 109/69
== END 2019-06-23 08:32 | disposition home or self-care (01) ==
LOC: M OPP 06:44
PROVIDERS: ATTEND Internal Medicine Gastroenterology
DX: R11.2 Nausea with vomiting, unspecified (principal); K31.1 Adult hypertrophic pyloric stenosis; K31.84 Gastroparesis; Z98.0 Intestinal bypass and anastomosis status; Z79.4 Long term (current) use of insulin; Z79.899 Other long term (current) drug therapy; Z88.0 Allergy status to penicillin; Z88.8 Allergy status to other drugs, medicaments and biological substances
CPT/HCPCS: 43239; 88305; J3010

== ENCOUNTER 2019-11-10 12:09 | Day surgery (SDC) | payer MEDICARE, OTHER ==
[~2019-11-10] VITALS: Ht 157.5 cm; Wt 41.3 kg
[~2019-11-10 12:09] MED LIST changes: +DEXTROSE 50% 50 ML SYRINGE IV ONE; +DULO1CAP4 PO; -LOES1TAB7; +LOES1TAB7 PO; +NOVOINJ3 SQ; +PANT40TA3 PO; +TRES1INJ2 SC; +VITA1CAP25 PO
[2019-11-10] MEDS ORDERED: DEXTROSE 50% 50 ML SYRINGE As Ordered ONE (12:32)
[2019-11-10] MEDS ORDERED: PROPOFOL 200 MG/20 ML VIAL As Ordered ONE ×2 (13:43→13:44)
[2019-11-10] MEDS ORDERED: LIDOCAINE 2% INJ 100 MG/5 ML SDV (FOR ANES.) As Ordered ONE (13:43)
[2019-11-10 14:40] VITALS: BP 128/81
--- NOTE | 2019-11-10 14:53 | ROOR ---
Patient Name: Lizbeth Chandra Procedure Date: 11/10/2019 1:41 PM Date of : 1985 Age: 34 Room: [facility] Gender: Female Note Status: Finalized Procedure: Upper GI endoscopy Indications: For therapy of pyloric stenosis, For therapy of post-surgical anastomotic stenosis, Nausea with vomiting Providers: Vipul Prasad MD Referring MD: Aki Pizarro Requesting Provider: Medicines: Monitored Anesthesia Care Complications: No immediate complications. Procedure: Pre-Anesthesia Assessment: - Prior to the procedure, a History and Physical was performed, and patient medications and allergies were reviewed. The patient is competent. The risks and benefits of the procedure and the sedation options and risks were discussed with the patient. All questions were answered and informed consent was obtained. Patient identification and proposed procedure were verified by the physician, the nurse and the anesthesiologist in the procedure room. Mental Status Examination: alert and oriented. Airway Examination: normal oropharyngeal airway and neck mobility. Respiratory Examination: clear to auscultation. CV Examination: normal. Prophylactic Antibiotics: The patient does not require prophylactic antibiotics. Prior Anticoagulants: The patient has taken no previous anticoagulant or antiplatelet agents. ASA Grade Assessment: III - A patient with severe systemic disease. After reviewing the risks and benefits, the patient was deemed in satisfactory condition to undergo the procedure. The anesthesia plan was to use monitored anesthesia care (MAC). Immediately prior to administration of medications, the patient was re-assessed for adequacy to receive sedatives. The heart rate, respiratory rate, oxygen saturations, blood pressure, adequacy of pulmonary ventilation, and response to care were monitored throughout the procedure. The physical status of the patient was re-assessed after the procedure. The Endoscope was introduced through the mouth, and advanced to the second part of duodenum. The upper GI endoscopy was accomplished without difficulty. The patient tolerated the procedure well. Findings: The Z-line was irregular and was found in the distal esophagus. Patchy mildly erythematous mucosa without bleeding was found in the gastric body. There was evidence of a patent but strictured duodenoenterostomy in the duodenal bulb. This was characterized by healthy appearing mucosa and moderate stenosis. A TTS dilator was passed through the scope. Dilation with a 15-16.5-18 mm and a 16.5 mm pyloric balloon dilator was performed. The dilation site was examined and showed mild mucosal disruption, moderate improvement in luminal narrowing and no perforation. Impression: - Z-line irregular, in the distal esophagus. - Erythematous mucosa in the gastric body. - Patent but strictured duodenoenterostomy, characterized by healthy appearing mucosa and moderate stenosis was found. Dilated. - No specimens collected. Recommendation: - Patient has a contact number available for emergencies. The signs and symptoms of potential delayed complications were discussed with the patient. Return to normal activities tomorrow. Written discharge instructions were provided to the patient. - Full liquid diet today, then advance as tolerated to diabetic (ADA) diet. - Continue present medications. - Use Protonix (pantoprazole) 40 mg PO twice daily - to be taken in morning (1/2 hour before breakfast) and at bedtime ( atleast 3 hours after last meal) for 3 months. - Repeat upper endoscopy in 6 months to evaluate the response to therapy and for retreatment. - Telephone GI clinic if symptomatic in 1 week. - Return to GI clinic in 3 months. - Return to primary care physician. Vipul Prasad MD Vipul Prasad MD 11/10/2019 2:52:51 PM Electronically signed by Vipul Prasad MD Number of Addenda: 0 Note Initiated On: 11/10/2019 1:41 PM Estimated Blood Loss: Estimated blood loss was minimal.
== END 2019-11-10 14:54 | disposition home or self-care (01) ==
LOC: M OPP 12:09
PROVIDERS: ATTEND Internal Medicine Gastroenterology
DX: K22.8 Other specified diseases of esophagus (principal); K31.89 Other diseases of stomach and duodenum; Z98.84 Bariatric surgery status; K31.1 Adult hypertrophic pyloric stenosis; K91.89 Other postprocedural complications and disorders of digestive system; R11.2 Nausea with vomiting, unspecified; Z79.4 Long term (current) use of insulin; Z79.891 Long term (current) use of opiate analgesic; Z79.899 Other long term (current) drug therapy; Z88.0 Allergy status to penicillin; Z88.8 Allergy status to other drugs, medicaments and biological substances; Z95.5 Presence of coronary angioplasty implant and graft

== ENCOUNTER → 2020-04-12 | Outpatient (CLI) | payer MEDICARE, OTHER ==
[~2020-04-12] MED LIST changes: -DEXTROSE 50% 50 ML SYRINGE IV ONE; +GABA-845 PO; +HUMA100I14; +MULTCAP PO; +NORE1TAB43 PO; -NS 1,000 ML IV ONE
[2020-04-12 10:15] LABS: BASO # 0.1 10^3/uL (0.0-0.2); BASO % 1.5 % (0.0-1.0); EOS # 0.1 10^3/uL (0.0-0.5); EOS % 1.2 % (0.0-3.0); HEMATOCRIT 42.5 % (36.0-47.0); HEMOGLOBIN 13.6 g/dl (12.0-15.5); LYMPH # 3.1 10^3/uL (1.5-5.0); LYMPH % 33.3 % (24.0-44.0); MEAN CORPUSCULAR HEMOGLOBIN 31.9 pg (27.0-33.0); MEAN CORPUSCULAR VOLUME 99.5 fl (80.0-96.0); MONO # 0.4 10^3/uL (0.0-0.8); MONO % 3.9 % (0.0-5.0); NEUTROPHILS # 5.5 10^3/uL (1.5-8.5); NEUTROPHILS % 59.7 % (36.0-66.0); PLATELET COUNT, AUTOMATED 822 10^3/uL (150-450); RED BLOOD COUNT 4.27 10^6/uL (4.00-5.40); WHITE BLOOD COUNT 9.2 10^3/uL (4.0-10.0)
[2020-04-12 10:40] LABS: PERCENT SATURATION 27.6 % (13.2-45.0)
== END ==
LOC: M LAB 09:44
PROVIDERS: ATTEND Internal Medicine Hematology & Oncology
DX: D50.9 Iron deficiency anemia, unspecified (principal)

== ENCOUNTER 2020-05-09 10:36 | Emergency (ER) | payer MEDICARE, OTHER ==
[~2020-05-09] VITALS: Ht 160 cm; Wt 41.0 kg
[2020-05-09] MEDS ORDERED: LOES1TAB7 (10:44)
[2020-05-09 11:39] LABS: BASO # 0.1 10^3/uL (0.0-0.2); BASO % 1.4 % (0.0-1.0); EOS # 0.4 10^3/uL (0.0-0.5); EOS % 6.8 % (0.0-3.0); HEMATOCRIT 40.1 % (36.0-47.0); HEMOGLOBIN 13.3 g/dl (12.0-15.5); LYMPH # 2.8 10^3/uL (1.5-5.0); LYMPH % 49.3 % (24.0-44.0); MEAN CORPUSCULAR HGB CONC 33.2 g/dl (32.0-36.5); MEAN CORPUSCULAR VOLUME 96.4 fl (80.0-96.0); MONO # 0.4 10^3/uL (0.0-0.8); MONO % 6.5 % (0.0-5.0); NEUTROPHILS % 35.8 % (36.0-66.0); PLATELET COUNT, AUTOMATED 553 10^3/uL (150-450); RED BLOOD COUNT 4.16 10^6/uL (4.00-5.40); WHITE BLOOD COUNT 5.6 10^3/uL (4.0-10.0)
[2020-05-09] MEDS ORDERED: HALOPERIDOL 5MG/ML VIAL (J1630 PER 1) IV ONE (11:45)
[2020-05-09] MEDS ORDERED: NS 500 ML IV ONE (11:45)
[2020-05-09] MEDS ORDERED: traMADol 50 MG TAB PO ONE (12:30)
[2020-05-09] MEDS ORDERED: PROC25SU24 PR (13:23)
[2020-05-09] MEDS ORDERED: ONDA4TAB6 PO (13:23)
[2020-05-09 13:30] VITALS: BP 152/74
== END 2020-05-09 13:51 | disposition home or self-care (01) ==
LOC: M ED 10:36
DX: E10.9 Type 1 diabetes mellitus without complications (principal); Z79.899 Other long term (current) drug therapy; Z88.1 Allergy status to other antibiotic agents; Z88.8 Allergy status to other drugs, medicaments and biological substances
CPT/HCPCS: 36600; 80047; 82803; 83605; 85025; 93041; 96361; 96374; 99285; J1630

== ENCOUNTER → 2020-05-18 | Outpatient (CLI) | payer MEDICARE, OTHER ==
[~2020-05-18] MED LIST changes: +CARI1TAB7; +CREO24CA; +CYAN500T14 PO; -CYAN500T8 PO; +GABA-282; +GABA-282 PO; -GABA-843; -GABA-843 PO; +HYDR-3713 PO; +PANT40TA29 PO; -PANT40TA3 PO; +PROC25SU24 PR; +PROZ20CA11 PO; +THERTAB52 PO
[2020-05-18 09:35] LABS: BASO # 0.1 10^3/uL (0.0-0.2); BASO % 1.1 % (0.0-1.0); EOS # 0.2 10^3/uL (0.0-0.5); EOS % 2.3 % (0.0-3.0); HEMATOCRIT 39.5 % (36.0-47.0); HEMOGLOBIN 12.9 g/dl (12.0-15.5); LYMPH # 2.3 10^3/uL (1.5-5.0); LYMPH % 24.3 % (24.0-44.0); MEAN CORPUSCULAR HEMOGLOBIN 31.9 pg (27.0-33.0); MEAN CORPUSCULAR HGB CONC 32.7 g/dl (32.0-36.5); MEAN CORPUSCULAR VOLUME 97.8 fl (80.0-96.0); MONO # 0.6 10^3/uL (0.0-0.8); MONO % 6.2 % (0.0-5.0); NEUTROPHILS # 6.2 10^3/uL (1.5-8.5); NEUTROPHILS % 65.8 % (36.0-66.0); PLATELET COUNT, AUTOMATED 903 10^3/uL (150-450); RED BLOOD COUNT 4.04 10^6/uL (4.00-5.40); WHITE BLOOD COUNT 9.4 10^3/uL (4.0-10.0)
== END ==
LOC: M LAB 08:44
PROVIDERS: ATTEND Internal Medicine Medical Oncology
DX: E61.1 Iron deficiency (principal)

== ENCOUNTER → 2020-05-31 | Outpatient (CLI) | payer MEDICARE, OTHER ==
[~2020-05-31] MED LIST changes: -CARI1TAB7; -CREO24CA; -CYAN500T14 PO; +CYAN500T8 PO; -GABA-282; -GABA-282 PO; +GABA-843; +GABA-843 PO; -HYDR-3713 PO; +LOES1TAB7; -PANT40TA29 PO; +PANT40TA3 PO; -PROZ20CA11 PO; -THERTAB52 PO
[2020-05-31 15:06] LABS: BLOOD UREA NITROGEN 10 MG/DL (7-18); CALCIUM LEVEL 10.3 MG/DL (8.5-10.1); CARBON DIOXIDE LEVEL 32 MEQ/L (21-32); CHLORIDE LEVEL 99 MEQ/L (98-107); CREATININE FOR GFR 0.69 MG/DL (0.55-1.30); GLOMERULAR FILTRATION RATE > 60.0 (>60); GLUCOSE, FASTING 199 MG/DL (70-100); POTASSIUM SERUM 5.1 MEQ/L (3.5-5.1); SODIUM LEVEL 134 MEQ/L (136-145)
[2020-05-31 16:36] LABS: HEMOGLOBIN A1c 9.2 %
== END ==
LOC: M LAB 14:03
PROVIDERS: ATTEND Physician Assistant
DX: E10.65 Type 1 diabetes mellitus with hyperglycemia (principal)

== ENCOUNTER → 2020-05-31 | Outpatient (CLI) | payer MEDICARE, OTHER ==
[2020-05-31 14:43] LABS: BASO # 0.2 10^3/uL (0.0-0.2); BASO % 1.7 % (0.0-1.0); EOS # 1.5 10^3/uL (0.0-0.5); EOS % 14.2 % (0.0-3.0); HEMATOCRIT 40.8 % (36.0-47.0); HEMOGLOBIN 13.3 g/dl (12.0-15.5); LYMPH # 2.6 10^3/uL (1.5-5.0); LYMPH % 25.4 % (24.0-44.0); MEAN CORPUSCULAR HGB CONC 32.6 g/dl (32.0-36.5); MEAN CORPUSCULAR VOLUME 101.2 fl (80.0-96.0); MONO # 0.4 10^3/uL (0.0-0.8); MONO % 4.3 % (0.0-5.0); NEUTROPHILS # 5.5 10^3/uL (1.5-8.5); PLATELET COUNT, AUTOMATED 945 10^3/uL (150-450); RED BLOOD COUNT 4.03 10^6/uL (4.00-5.40); WHITE BLOOD COUNT 10.2 10^3/uL (4.0-10.0)
[2020-05-31 15:10] LABS: ALBUMIN 2.8 GM/DL (3.2-5.2); ALT/SGPT 103 U/L (12-78); BILIRUBIN,TOTAL 0.3 MG/DL (0.2-1.0); BLOOD UREA NITROGEN 10 MG/DL (7-18); CALCIUM LEVEL 10.4 MG/DL (8.5-10.1); CARBON DIOXIDE LEVEL 32 MEQ/L (21-32); CHLORIDE LEVEL 99 MEQ/L (98-107); CREATININE FOR GFR 0.68 MG/DL (0.55-1.30); FERRITIN 551 NG/ML (8-252); GLOMERULAR FILTRATION RATE > 60.0 (>60); GLUCOSE, FASTING 195 MG/DL (70-100); IRON (FE) 41 UG/DL (50-170); PERCENT SATURATION 13.6 % (13.2-45.0); POTASSIUM SERUM 5.2 MEQ/L (3.5-5.1); SODIUM LEVEL 134 MEQ/L (136-145); TOTAL IRON BINDING CAPACITY 301 UG/DL (250-450); TOTAL PROTEIN 7.8 GM/DL (6.4-8.2)
== END ==
LOC: M LAB 13:59
PROVIDERS: ATTEND Internal Medicine Hematology & Oncology
DX: D69.3 Immune thrombocytopenic purpura (principal)

== ENCOUNTER 2020-07-18 07:30 | Day surgery (SDC) | payer MEDICARE, OTHER ==
[~2020-07-18 07:30] MED LIST changes: +PANT40TA29 PO; -PANT40TA3 PO
--- NOTE | 2020-08-10 11:34 | ROOR ---
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 Procedure: Pre-Anesthesia Assessment: - Prior to the procedure, a History and Physical was performed, and patient medications and allergies were reviewed. The patient is competent. The risks and benefits of the procedure and the sedation options and risks were discussed with the patient. All questions were answered and informed consent was obtained. Patient identification and proposed procedure were verified by the physician, the nurse and the anesthesiologist in the procedure room. Mental Status Examination: alert and oriented. Airway Examination: normal oropharyngeal airway and neck mobility. Respiratory Examination: clear to auscultation. CV Examination: normal. Prophylactic Antibiotics: The patient does not require prophylactic antibiotics. Prior Anticoagulants: The patient has taken no previous anticoagulant or antiplatelet agents. ASA Grade Assessment: II - A patient with mild systemic disease. After reviewing the risks and benefits, the patient was deemed in satisfactory condition to undergo the procedure. The anesthesia plan was to use monitored anesthesia care (MAC). Immediately prior to administration of medications, the patient was re-assessed for adequacy to receive sedatives. The heart rate, respiratory rate, oxygen saturations, blood pressure, adequacy of pulmonary ventilation, and response to care were monitored throughout the procedure. The physical status of the patient was re-assessed after the procedure. The Endoscope was introduced through the mouth, and advanced to the second part of duodenum. The upper GI endoscopy was accomplished without difficulty. The patient tolerated the procedure well. Findings: No gross lesions were noted in the entire esophagus. A deformity was found at the pylorus and at the anastomosis. A benign-appearing, intrinsic moderate stenosis was found at the anastomosis. This was traversed. A TTS dilator was passed through the scope. Dilation with a 15-16.5-18 mm anastomotic balloon dilator was performed. The dilation site was examined following endoscope reinsertion and showed mild mucosal disruption, moderate improvement in luminal narrowing, no bleeding and no perforation. There was evidence of a patent but strictured previous surgical anastomosis in the first portion of the duodenum. This was characterized by healthy appearing mucosa. Impression: - No gross lesions in esophagus. - Post-surgical deformity in the pylorus and in the anastomosis. - Gastric stenosis was found at the anastomosis. Dilated. - Patent but strictured previous surgical anastomosis, characterized by healthy appearing mucosa was found in the duodenum. - No specimens collected. Recommendation: - Patient has a contact number available for emergencies. The signs and symptoms of potential delayed complications were discussed with the patient. Return to normal activities tomorrow. Written discharge instructions were provided to the patient. - Gastroparesis diet. - Continue present medications. - Use sucralfate suspension 1 gram PO QID for 2 weeks. - Return to GI clinic in [facility] (address [address], [address], [place] [address]) in 4 -- 6 weeks. Please call GI clinic @ [phone] for apppointment date and time. - Return to primary care physician. Vipul Prasad MD 07/18/2020 9:03:51 AM Number of Addenda: 0 Note Initiated On: 07/18/2020 7:34 AM Estimated Blood Loss: Estimated blood loss was minimal.
== END 2020-07-18 09:27 | disposition home or self-care (01) ==
LOC: M SDC 07:30
PROVIDERS: ATTEND Internal Medicine Gastroenterology
DX: K91.89 Other postprocedural complications and disorders of digestive system (principal); K31.89 Other diseases of stomach and duodenum; Z98.0 Intestinal bypass and anastomosis status; R11.2 Nausea with vomiting, unspecified; E10.9 Type 1 diabetes mellitus without complications; Z79.4 Long term (current) use of insulin; Z79.891 Long term (current) use of opiate analgesic; Z79.899 Other long term (current) drug therapy; Z88.0 Allergy status to penicillin; Z88.8 Allergy status to other drugs, medicaments and biological substances

== ENCOUNTER → 2020-10-04 | Outpatient (CLI) | payer MEDICARE, OTHER ==
--- NOTE | 2020-10-06 01:06 | ECWPNPC ---
PATIENT NAME: SARAVANAN VELOZ : 1985 GENDER: FEMALE VISIT DATE: 10/04/2020 DISCHARGE DATE: 10/04/20 1412 VISIT LOCKED DATE TIME: PHYSICIAN: CHARANJIT BUSH RESOURCE: CHARANJIT BUSH REASON FOR APPOINTMENT 1. CHRONIC PAIN HISTORY OF PRESENT ILLNESS DEPRESSION SCREENING: PHQ-9 LITTLE INTEREST OR PLEASURE IN DOING THINGSMORE THAN HALF THE DAYS FEELING DOWN, DEPRESSED, OR HOPELESSSEVERAL DAYS TROUBLE FALLING OR STAYING ASLEEP, OR SLEEPING TOO MUCHSEVERAL DAYS FEELING TIRED OR HAVING LITTLE ENERGYMORE THAN HALF THE DAYS POOR APPETITE OR OVEREATING SEVERAL DAYS FEELING BAD ABOUT YOURSELF-OR THAT YOU ARE A FAILURE OR HAVE LET YOURSELF OR YOUR FAMILY DOWN SEVERAL DAYS TROUBLE CONCENTRATING ON THINGS, SUCH READING THE NEWSPAPER OR WATCHING TELEVISION SEVERAL DAYS MOVING OR SPEAKING SO SLOWLY THAT OTHER PEOPLE COULD HAVE NOTICED. OR THE OPPOSITE- BEING SO FIDGETY OR RESTLESS THAT YOU HAVE BEEN MOVING AROUND A LOT MORE THAN USUALNOT AT ALL THOUGHTS THAT YOU WOULD BE BETTER OFF , OR OF HURTING YOURSELF IN SOME WAY?NOT AT ALL TOTAL SCORE:9 INTERPRETATIONMILD DEPRESSION PHQ-2 (2015 EDITION) LITTLE INTEREST OR PLEASURE IN DOING THINGS?MORE THAN HALF THE DAYS FEELING DOWN, DEPRESSED, OR HOPELESS?SEVERAL DAYS TOTAL SCORE3 GENERAL: 35-YEAR-OLD FEMALE BEING REFERRED BY [facility] TO EVALUATE CHRONIC ABDOMINAL PAIN. HISTORY OF ABDOMINAL PAIN SINCE . HAS HAD SURGERY IMMEDIATELY AFTER DELIVERY A DUE TO LIVER BEING OUTSIDE OF BODY. SHE WAS DIAGNOSED WITH CHRONIC PANCREATITIS AT AGE 5. HAD FIRST SURGERY ON PANCREAS AT AGE 8. AT 22 YEARS OLD SHE HAD HER PANCREAS REMOVED. HAS UNCONTROLLED DIABETES MELLITUS WITH COMPLICATION OF GASTROPARESIS. HAS BEEN AT [facility] FOR 2 YEARS. STATES THAT HER PAIN HAS NOT BEEN WELL CONTROLLED SINCE MOVING HERE. STATES THAT [facility] WOULD ONLY GIVE HER TRAMADOL 50 MG 3 TIMES A DAY AND SHE WAS USE TO FUNCTIONING AND HAVING IMPROVED PAIN CONTROL ON TRAMADOL 100 MG 3 TIMES A DAY. HER GABAPENTIN DOSAGE WAS REDUCED. HAS HAD VISITS TO THE EMERGENCY ROOM DUE TO UNCONTROLLED ABDOMINAL PAIN. REPORTS DAYS WHERE SHE HAS TO STAY IN BED DUE TO ABDOMINAL PAIN. REPORTS INABILITY TO FUNCTION DUE TO PAIN. FOLLOWS WITH GASTROENTEROLOGY HERE AT [facility]. HAD BILE DUCT SURGERY IN INTERVENTIONAL RADIOLOGY IN JULY. REPORTING NORMAL BOWEL MOVEMENTS. REPORTING NORMAL URINATION. - - - - - -. FALL RISK SCREENING: SCREENING :NO FALLS REPORTED IN THE LAST YEAR PAIN SCREENING: PATIENT HAS A COMPLAINT OF ACUTE OR CHRONIC PAIN :YES LOCATION OF PAIN:ABDOMEN, NECK, LEFT SHOULDER, RIGHT SHOULDER INTENSITY OF PAIN (SCALE OF 1 TO 10):4 WHAT DOES YOUR PAIN FEEL LIKE:ACHING, STABBING DURATION:CONTINOUS, CONSTANT PAIN IS INCREASED BY:ACTIVITIES PAIN IS DECREASED BY:OTHERS NOTHING TREATMENT/MEDICATIONS USED TO MANAGE PAIN:OPIOIDS LEVEL OF RELIEF FROM PAIN TREATMENTS IN THE PAST:0% PAIN HAS INTERFERED WITH THE FOLLOWING:BATHING/DRESSING, WALKING ABILITY, EMPLOYMENT, HOUSEWORK, SLEEP, ENJOYMENT OF LIFE, TRANSPORTATION, TOILETING NURSING NOTE: - - - - - -. PAIN CENTER INTAKE QUESTIONS: DO YOU HAVE A HISTORY OF MRSA? :NO DO YOU TAKE A BLOOD THINNERS? :NO DO YOU HAVE ANY BLEEDING DISORDERS? :NO ANY NEW NUMBNESS OR WEAKNESS IN YOUR LEGS OR ARMS? :NO ANY PACEMAKER,DEFIBRILLATOR, OR DORSAL COLUMN STIMULATOR? :NO DO YOU HAVE ANY RASHES OR OPEN SORES? :NO ARE YOU ALLERGIC TO IV DYE? :NO ARE YOU DIABETIC? :YES INSULIN ANY NEW PROBLEMS WITH YOUR MEDICATIONS? :NO HAVE YOU RECEIVED A VACCINE IN THE PAST 30 DAYS? :NO DO YOU PLAN TO RECEIVE A VACCINE IN THE NEXT 21 DAYS? :YES IF SO WHAT VACCINE AND WHEN? FLU VACCINE DO YOU NEED ANY PRESCRIPTION? :NO DO YOU TAKE ANY IMMUNOSUPPRESSIVE MEDICATIONS? :NO CURRENT MEDICATIONS TAKING CREON 20 24,000 UNITS ORALLY WITH MEALS TAKING VITAMIN B 12 TAKING CYMBALTA 20 MG PO ONCE DAILY TAKING HUMALOG KWIKPEN TAKING TRESIBA FLEXTOUCH TAKING GABAPENTIN 800 MG TABLET 1 CAPSULE ORALLY TID TAKING 12/21 TAKING PANTOPRAZOLE SODIUM 40 MG TABLET DELAYED RELEASE 1 TABLET ORALLY BID TAKING SUCRALFATE 1 GM TABLET 1 TABLET ON AN EMPTY STOMACH ORALLY TID TAKING NALOXONE HCL 4 MG/10ML SOLUTION DIRECTED INJECTION TAKING ONDANSETRON 4 MG TABLET DISINTEGRATING 1 TABLET ON THE TONGUE AND ALLOW TO DISSOLVE ORALLY ONCE A DAY TAKING TRAMADOL HCL 50 MG TABLET 1 TABLET NEEDED ORALLY THREE TIMES A DAY NOT-TAKING TRAMADOL HCL ER 100 MG CAPSULE EXTENDED RELEASE 24 HOUR 50MG ORALLY THREE TIMES DAILY NOT-TAKING BACTRIM DS 800-160 MG TABLET 1 TABLET ORALLY DIRECTED- 1 HOUR PRIOR TO CYSTOSCOPY NOT-TAKING PAXIL 20 MG TABLET 1 TABLET IN THE MORNING ORALLY ONCE A DAY NOT-TAKING NEXIUM 20 MG CAPSULE DELAYED RELEASE 1 CAPSULE ORALLY ONCE A DAY NOT-TAKING NEURONTIN 600 MG TABLET 1 TABLET ORALLY ONCE A DAY, NOTES: 2100 MG DAILY NOT-TAKING NOVOLOG NOT-TAKING CIPRO 500 MG TABLET 1 TABLET ORALLY TWICE A DAY MEDICATION LIST REVIEWED AND RECONCILED WITH THE PATIENT PAST MEDICAL HISTORY DM TYPE 1 HX OF PANCREATITIS HX OF GASTROPARESIS ANEMIA MALABSORPTION ALLERGIES AMOXICILLIN: NAUSEA/VOMITING - ALLERGY REGLAN: ANXIETY - ALLERGY DILAUDID: HIVES - ALLERGY SURGICAL HISTORY NERVE BLOCKS X2(ABD) PATIENT LIVER WAS OUTSIDE THE BODY AND WAS FIXED AND APPENDIX REMOVED AT ABDOMINAL SURGERY AGE 8 PANCREAS SURGERY AND GALLBLADDER REMOVED AGE 14 REMOVED PANCREAS,SPLEEN AND SOME SMALL INTESTINE, APPENDIX AGE 22 FAMILY HISTORY FATHER: ALIVE MOTHER: ALIVE, BREAST CANCER IN 2002 SOCIAL HISTORY GENERAL: TOBACCO USE ARE YOU A:NONSMOKER LATEX QUESTIONNAIRE LATEX ALLERGY : HAVE YOU EVER DEVELOPED ANY TYPE OF REACTION AFTER HANDLING LATEX PRODUCTS SUCH RUBBER GLOVES, CONDOMS, DIAPHRAGMS, BALLOONS, SOCKS, OR UNDERWEAR?NO LATEX ALLERGY : HAVE YOU EVER DEVELOPED ANY TYPE OF REACTION DURING OR AFTER DENTAL APPOINTMENT, VAGINAL/RECTAL EXAMINATION, SURGICAL PROCEDURE, OR ANY OTHER EXPOSURE?NO LATEX RISK : HAVE YOU EVER HAD ANY DIFFICULTY BREATHING OR HIVES AFTER EATING OR HANDLING ANY FRUITS, OR VEGETABLES; SUCH KIWI, BANANAS, STONE FRUITS, OR CHESTNUTSNO LATEX RISK : DO YOU HAVE A PREVIOUS PERSONAL HISTORY OF MORE THAN NINE SURGERIES, SPINA BIFIDA, OR REPEATED CATHERIZATIONS? YES - PLEASE INDICATE : > 9 SURGERIES LATEX RISK : ARE YOU FREQUENTLY EXPOSED TO LATEX PRODUCTS IN YOUR OCCUPATION?NO DATE ASKED : 10/03/2020 ALCOHOL SCREENING DID YOU HAVE A DRINK CONTAINING ALCOHOL IN THE PAST YEAR?NO POINTS0 INTERPRETATIONNEGATIVE RECREATIONAL DRUG USE DRUG USE?NO CAFFEINE CAFFEINE USE?YES HOW OFTEN AND HOW MUCH? SOMETIMES SEXUAL HX HAD SEX IN THE LAST 12 MONTHS (VAGINAL, ORAL, OR ANAL)?YES WITHMEN ONLY HAVE YOU EVER HAD AN STD?YES CHLAMYDIA?YES MORMONISM [id number] AGNOSTIC LANGUAGE LANGUAGES SPOKEN:JAMAICAN DOMESTIC VIOLENCE DO YOU FEEL SAFE IN YOUR ENVIRONMENT?YES OCCUPATION: DISABLED. MARITAL STATUS: . PAIN CLINIC PFS, CLERGY, PUBLIC HEALTH REFERRALS HAS THE PATIENT BEEN EDUCATED REGARDING HIS/HER PLAN OF CARE?YES HAS THE PATIENT BEEN EDUCATED REGARDING PAIN, THE RISK FOR PAIN, THE IMPORTANCE OF EFFECTIVE PAIN MANAGEMENT, AND THE PAIN ASSESSMENT PROCESS?YES ADVANCE DIRECTIVE ADVANCE DIRECTIVE DISCUSSED WITH PATIENT:YES DECLINED, DECLINED PAPERWORK HOSPITALIZATION/MAJOR DIAGNOSTIC PROCEDURE SURGERY DM X MULTIPLE REVIEW OF SYSTEMS CONSTITUTIONAL: ANY RECENT FEVER NO . CHILLS NO . WEIGHT CHANGE OF UNKNOWN REASONS NO . GASTROENTEROLOGY: NEW UNEXPLAINABLE CHANGES IN BOWEL CONTROL NO . CONSTIPATION NO . GENITOURINARY: ANY NEW CHANGE IN BLADDER CONTROL? NO . NEUROLOGY: NEW ONSET DIZZINESS OR NEUROLOGICAL CHANGES NOT MENTIONED NO . NEW NUMBNESS OR PAIN PATTERNS NOT MENTIONED AND PERTINENT TO TODAY'S VISIT NO . CARDIOLOGY: NEW CHEST PRESSURE NO . NEW CHEST PAIN NO . RESPIRATORY: UNEXPLAINABLE COUGH NO . NEW SHORTNESS OF BREATH NO . VITAL SIGNS WT 99.2 LBS, HT 63 IN, BMI 17.57 INDEX, BP 107/61 MM HG, HR 104 /MIN, RR 18 /MIN, TEMP 96.8 F, OXYGEN SAT % 95%, SAFE IN ENV? (Y/N) YES, NA INITIALS AW 1312, REVIEWED BY: FAYE. EXAMINATION GENERAL EXAMINATION: GENERALNO ACUTE DISTRESS, WELL NOURISHED AND HYDRATED. PSYCHAPPROPRIATE MOOD AND AFFECT . FACE:UNREMARKABLE. NECK:NO LYMPHADENOPATHY, SUPPLE. LUNGS:CLEAR TO AUSCULTATION BILATERALLY, NO WHEEZES, RHONCHI, RALES. HEART:NO MURMURS, REGULAR RATE AND RHYTHM. ABDOMEN:MULTIPLE LARGE WELL-HEALED SURGICAL INCISIONS NOTED ON ABDOMEN. MILD DISCOMFORT WITH PALPATION OF ABDOMEN IN GENERAL. NO AREAS OF SWELLING.. ASSESSMENTS OTHER CHRONIC PAIN - G89.29 (PRIMARY) UNSPECIFIED ABDOMINAL PAIN - R10.9 TREATMENT OTHER CHRONIC PAIN REFILL GABAPENTIN TABLET, 800 MG, 1 CAPSULE, ORALLY, TID, 30 DAYS, 90 CAPSULE, REFILLS 1 INCREASE TRAMADOL HCL TABLET, 100 MG, 1 TABLET NEEDED, ORALLY, THREE TIMES A DAY MDD3, 30 DAYS, 90, REFILLS 1 NOTES: I THINK IT IS REASONABLE TO RETURN TO GIVING PATIENT 100 MG CAPSULE OF TRAMADOL 3 TIMES A DAY FOR CHRONIC ABDOMINAL PAIN. ACCORDING TO PATIENT THIS DOSAGE IS WHAT HELPS HER TO BE MORE TOLERANT OF ACTIVITIES OF DAILY LIVING AND BEING ABLE TO PARTICIPATE IN LIFE. I'VE ADVISED HER TO CONTINUE GABAPENTIN 800 MG 3 TIMES A DAY. NARCOTIC AGREEMENT AND CLINIC POLICY REGARDING NARCOTIC USE IS REVIEWED WITH PATIENT AND SHE VOICES UNDERSTANDING. WE WILL FOLLOW HER EVERY 2 MONTHS FOR MEDICATION MANAGEMENT FOR CHRONIC ABDOMINAL PAIN DUE TO MULTIPLE SURGERIES. , ISTOP REGISTRY REVIEWED AND DEMONSTRATES COMPLLIANCE. 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 DISPOSITION & COMMUNICATION FOLLOW UP 2 MONTHS (REASON: MED MGMNT) ELECTRONICALLY SIGNED BY CARLOS RUBIO ON 10/05/2020 AT 02:23 PM EST DISCLAIMER : THIS IS A VISIT SUMMARY EXTRACTED FROM THE [employer] CHART. IT IS NOT A COPY OF THE [employer] PROGRESS NOTE. JERRY
== END ==
LOC: M PAIN 13:00
PROVIDERS: ATTEND Nurse Practitioner Family
DX: R10.9 Unspecified abdominal pain (principal); G89.29 Other chronic pain; E10.9 Type 1 diabetes mellitus without complications; Z88.1 Allergy status to other antibiotic agents; Z88.8 Allergy status to other drugs, medicaments and biological substances; Z79.4 Long term (current) use of insulin; Z79.899 Other long term (current) drug therapy

== ENCOUNTER → 2020-12-01 | Outpatient (CLI) | payer MEDICARE, OTHER ==
[~2020-12-01] MED LIST changes: +CYAN500T14 PO; -CYAN500T8 PO; -LOES1TAB7; +PROZ20CA11 PO; +THERTAB52 PO
== END ==
LOC: M LABSMTC 12:48
PROVIDERS: ATTEND Anesthesiology
DX: Z01.812 Encounter for preprocedural laboratory examination (principal); Z20.828 Contact with and (suspected) exposure to other viral communicable diseases

== ENCOUNTER 2020-12-06 07:52 | Day surgery (SDC) | payer MEDICARE, OTHER ==
[~2020-12-06] VITALS: Ht 160 cm; Wt 40.8 kg
[~2020-12-06 07:52] MED LIST changes: +NS 1,000 ML IV ONE; +SIMETHICONE 40MG/0.6ML DROPS 30ML As Ordered ONE
[2020-12-06] MEDS ORDERED: LIDOCAINE 2% 100MG/5ML SDV (FOR ANES.) As Ordered ONE (08:51)
[2020-12-06] MEDS ORDERED: propofoL 500 MG/50 ML VIAL As Ordered ONE (08:51)
--- NOTE | 2020-12-06 09:33 | ROOR ---
Patient Name: Lizbteh Chandra Procedure Date: 12/06/2020 8:50 AM Date of : 1985 Age: 35 Gender: Female Note Status: Finalized Procedure: Upper GI endoscopy Indications: For therapy of post-surgical anastomotic stenosis, Management of operative complication: Dilation of anastomotic stricture Providers: Vipul Prasad MD Referring MD: TERRY STEWART MD Requesting Provider: Medicines: Monitored Anesthesia Care Complications: No immediate complications. Procedure: Pre-Anesthesia Assessment: - Prior to the procedure, a History and Physical was performed, and patient medications and allergies were reviewed. The patient is competent. The risks and benefits of the procedure and the sedation options and risks were discussed with the patient. All questions were answered and informed consent was obtained. Patient identification and proposed procedure were verified by the physician, the nurse and the anesthesiologist in the procedure room. Mental Status Examination: alert and oriented. Airway Examination: normal oropharyngeal airway and neck mobility. Respiratory Examination: clear to auscultation. CV Examination: normal. Prophylactic Antibiotics: The patient does not require prophylactic antibiotics. Prior Anticoagulants: The patient has taken no previous anticoagulant or antiplatelet agents. ASA Grade Assessment: II - A patient with mild systemic disease. After reviewing the risks and benefits, the patient was deemed in satisfactory condition to undergo the procedure. The anesthesia plan was to use monitored anesthesia care (MAC). Immediately prior to administration of medications, the patient was re-assessed for adequacy to receive sedatives. The heart rate, respiratory rate, oxygen saturations, blood pressure, adequacy of pulmonary ventilation, and response to care were monitored throughout the procedure. The physical status of the patient was re-assessed after the procedure. The Endoscope was introduced through the mouth, and advanced to the second part of duodenum. The upper GI endoscopy was accomplished without difficulty. The patient tolerated the procedure well. Findings: The examined esophagus was normal. Evidence of a previous surgical anastomosis was found in the pylorus. This was characterized by moderate stenosis. A TTS dilator was passed through the scope. Dilation with an 18-19-20 mm anastomotic balloon dilator was performed. The dilation site was examined following endoscope reinsertion and showed mild mucosal disruption, moderate improvement in luminal narrowing, no mucosal tear and no perforation. Estimated blood loss was minimal. No gross lesions were noted in the first portion of the duodenum, in the second portion of the duodenum, in the third portion of the duodenum, in the fourth portion of the duodenum and in the anastomosis. Impression: - Normal esophagus. - A previous surgical anastomosis was found, characterized by moderate stenosis. Dilated. - No gross lesions in the first portion of the duodenum, in the second portion of the duodenum, in the third portion of the duodenum, in the fourth portion of the duodenum and in the anastomosis. - No specimens collected. Recommendation: - Patient has a contact number available for emergencies. The signs and symptoms of potential delayed complications were discussed with the patient. Return to normal activities tomorrow. Written discharge instructions were provided to the patient. - Gastroparesis diet. - Post gastric bypass diet (small frequent meals and avoid fatty/ fried foods). - Continue present medications. - Repeat upper endoscopy in 6 months depending on the symptoms and clinical response. - Telephone GI clinic if symptomatic. - Follow an antireflux regimen. - Return to primary care physician. Procedure Code(s): --- Professional --- 10734, Esophagogastroduodenoscopy, flexible, transoral; with dilation of gastric/duodenal stricture(s) (eg, balloon, bougie) Diagnosis Code(s): --- Professional --- Z98.0, Intestinal bypass and anastomosis status K91.89, Other postprocedural complications and disorders of digestive system CPT copyright 2019 [employer]. All rights reserved. The codes documented in this report are preliminary and upon death surveys coder review may be revised to meet current compliance requirements. Vipul Prasad MD Vipul Prasad MD 12/06/2020 9:33:14 AM Electronically signed by Viplu Prasad MD Number of Addenda: 0 Note Initiated On: 12/06/2020 8:50 AM Estimated Blood Loss: Estimated blood loss was minimal.
[2020-12-06] MEDS ORDERED: fentaNYL 100 MCG/2 ML INJECTION (J3010) As Ordered ONE (09:37)
[2020-12-06 09:54] VITALS: BP 94/57
== END 2020-12-06 09:57 | disposition home or self-care (01) ==
LOC: M OPP 07:52
PROVIDERS: ATTEND Internal Medicine Gastroenterology
DX: K91.89 Other postprocedural complications and disorders of digestive system (principal); Z98.0 Intestinal bypass and anastomosis status
CPT/HCPCS: 43245; J3010

== ENCOUNTER → 2020-12-08 | Outpatient (CLI) | payer MEDICARE, OTHER ==
[~2020-12-08] MED LIST changes: -NS 1,000 ML IV ONE; -SIMETHICONE 40MG/0.6ML DROPS 30ML As Ordered ONE
--- NOTE | 2020-12-10 06:02 | ECWPNPC ---
PATIENT NAME: SARAVANAN VELOZ : 1985 GENDER: FEMALE VISIT DATE: 12/08/2020 DISCHARGE DATE: 12/08/20 1440 VISIT LOCKED DATE TIME: PHYSICIAN: CHARANJIT BUSH RESOURCE: CHARANJIT BUSH REASON FOR APPOINTMENT 1. CHRONIC PAIN HISTORY OF PRESENT ILLNESS GENERAL: THIS IS A 2 MONTH FOLLOW-UP AND MEDICATION MANAGEMENT FOR CHRONIC ABDOMINAL PAIN RELATED TO MULTIPLE ABDOMINAL SURGERIES. REPORTS INCREASE IN ABDOMINAL PAIN THAT SHOOTS TO THE LEFT POSTERIOR THORACIC AREA. HAD PROCEDURE TO OPEN A DUCT BY GASTROENTEROLOGY 2 DAYS AGO. SHE THOUGHT THAT WOULD RESOLVE SHARP PAIN THAT SHE'S BEEN EXPERIENCING FOR THE PAST 3 WEEKS BUT UNFORTUNATELY THAT PAIN HAS PERSISTED. THIS IS DESPITE TAKING TRAMADOL 100 MG 3 TIMES A DAY AND GABAPENTIN 800MG 3X TIMES A DAY. DISCUSSED MEDICATION OPTIONS. ADVISED PATIENT TO BRING HER MEDICATION INTO ALL PAIN CLINIC VISIT PER CLINIC POLICY.-. FALL RISK SCREENING: SCREENING :NO FALLS REPORTED IN THE LAST YEAR PAIN SCREENING: PATIENT HAS A COMPLAINT OF ACUTE OR CHRONIC PAIN :YES LOCATION OF PAIN:ABDOMEN INTENSITY OF PAIN (SCALE OF 1 TO 10):5 WHAT DOES YOUR PAIN FEEL LIKE:STABBING, SORE DURATION:CONTINOUS, CONSTANT PAIN IS INCREASED BY:ACTIVITIES PAIN IS DECREASED BY:USE OF PAIN MEDICATIONS TREATMENT/MEDICATIONS USED TO MANAGE PAIN:OPIOIDS LEVEL OF RELIEF FROM PAIN TREATMENTS IN THE PAST:75% PAIN HAS INTERFERED WITH THE FOLLOWING:BATHING/DRESSING, WALKING ABILITY, HOUSEWORK, TRANSPORTATION, TOILETING NURSING NOTE: -. PAIN CENTER INTAKE QUESTIONS: DO YOU HAVE A HISTORY OF MRSA? :NO DO YOU TAKE A BLOOD THINNERS? :NO DO YOU HAVE ANY BLEEDING DISORDERS? :NO ANY NEW NUMBNESS OR WEAKNESS IN YOUR LEGS OR ARMS? :NO ANY PACEMAKER,DEFIBRILLATOR, OR DORSAL COLUMN STIMULATOR? :NO DO YOU HAVE ANY RASHES OR OPEN SORES? :NO ARE YOU ALLERGIC TO IV DYE? :NO ARE YOU DIABETIC? :YES ANY NEW PROBLEMS WITH YOUR MEDICATIONS? :NO HAVE YOU RECEIVED A VACCINE IN THE PAST 30 DAYS? :NO DO YOU PLAN TO RECEIVE A VACCINE IN THE NEXT 21 DAYS? :YES IF SO WHAT VACCINE AND WHEN? FLU VACCINE DO YOU NEED ANY PRESCRIPTION? :NO DO YOU TAKE ANY IMMUNOSUPPRESSIVE MEDICATIONS? :NO IS THERE A CHANCE YOU COULD BE ? :NO ARE YOU BREAST FEEDING? :NO CURRENT MEDICATIONS TAKING CREON 20 24,000 UNITS ORALLY WITH MEALS TAKING VITAMIN B 12 TAKING HUMALOG KWIKPEN TAKING TRESIBA FLEXTOUCH TAKING JUNEL FE 12/21 TAKING PANTOPRAZOLE SODIUM 40 MG TABLET DELAYED RELEASE 1 TABLET ORALLY BID TAKING SUCRALFATE 1 GM TABLET 1 TABLET ON AN EMPTY STOMACH ORALLY TID TAKING NALOXONE HCL 4 MG/10ML SOLUTION DIRECTED INJECTION TAKING TRAMADOL HCL 100 MG TABLET 1 TABLET NEEDED ORALLY THREE TIMES A DAY MDD3 TAKING GABAPENTIN 400 MG CAPSULE 2 CAPSULE ORALLY TID TAKING PROZAC 20 MG CAPSULE 1 CAPSULE ORALLY ONCE A DAY NOT-TAKING CYMBALTA 20 MG PO ONCE DAILY NOT-TAKING ONDANSETRON 4 MG TABLET DISINTEGRATING 1 TABLET ON THE TONGUE AND ALLOW TO DISSOLVE ORALLY ONCE A DAY NOT-TAKING GABAPENTIN 800 MG TABLET 1 CAPSULE ORALLY TID NOT-TAKING TRAMADOL HCL ER 100 MG CAPSULE EXTENDED RELEASE 24 HOUR 50MG ORALLY THREE TIMES DAILY NOT-TAKING BACTRIM DS 800-160 MG TABLET 1 TABLET ORALLY DIRECTED- 1 HOUR PRIOR TO CYSTOSCOPY NOT-TAKING PAXIL 20 MG TABLET 1 TABLET IN THE MORNING ORALLY ONCE A DAY NOT-TAKING NEXIUM 20 MG CAPSULE DELAYED RELEASE 1 CAPSULE ORALLY ONCE A DAY NOT-TAKING NEURONTIN 600 MG TABLET 1 TABLET ORALLY ONCE A DAY, NOTES: 2100 MG DAILY NOT-TAKING NOVOLOG NOT-TAKING CIPRO 500 MG TABLET 1 TABLET ORALLY TWICE A DAY MEDICATION LIST REVIEWED AND RECONCILED WITH THE PATIENT PAST MEDICAL HISTORY DM TYPE 1 HX OF PANCREATITIS HX OF GASTROPARESIS ANEMIA MALABSORPTION ALLERGIES AMOXICILLIN: NAUSEA/VOMITING - ALLERGY REGLAN: ANXIETY - ALLERGY DILAUDID: HIVES - ALLERGY SURGICAL HISTORY NERVE BLOCKS X2(ABD) PATIENT LIVER WAS OUTSIDE THE BODY AND WAS FIXED AND APPENDIX REMOVED AT ABDOMINAL SURGERY AGE 8 PANCREAS SURGERY AND GALLBLADDER REMOVED AGE 14 REMOVED PANCREAS,SPLEEN AND SOME SMALL INTESTINE, APPENDIX AGE 22 DILATED BILE DUCT 12/2020 FAMILY HISTORY FATHER: ALIVE MOTHER: ALIVE, BREAST CANCER IN 2002 SOCIAL HISTORY GENERAL: TOBACCO USE ARE YOU A:NONSMOKER LATEX QUESTIONNAIRE LATEX ALLERGY : HAVE YOU EVER DEVELOPED ANY TYPE OF REACTION AFTER HANDLING LATEX PRODUCTS SUCH RUBBER GLOVES, CONDOMS, DIAPHRAGMS, BALLOONS, SOCKS, OR UNDERWEAR?NO LATEX ALLERGY : HAVE YOU EVER DEVELOPED ANY TYPE OF REACTION DURING OR AFTER DENTAL APPOINTMENT, VAGINAL/RECTAL EXAMINATION, SURGICAL PROCEDURE, OR ANY OTHER EXPOSURE?NO LATEX RISK : HAVE YOU EVER HAD ANY DIFFICULTY BREATHING OR HIVES AFTER EATING OR HANDLING ANY FRUITS, OR VEGETABLES; SUCH KIWI, BANANAS, STONE FRUITS, OR CHESTNUTSNO LATEX RISK : DO YOU HAVE A PREVIOUS PERSONAL HISTORY OF MORE THAN NINE SURGERIES, SPINA BIFIDA, OR REPEATED CATHERIZATIONS? YES - PLEASE INDICATE : > 9 SURGERIES LATEX RISK : ARE YOU FREQUENTLY EXPOSED TO LATEX PRODUCTS IN YOUR OCCUPATION?NO DATE ASKED : 10/03/2020 ALCOHOL SCREENING DID YOU HAVE A DRINK CONTAINING ALCOHOL IN THE PAST YEAR?NO POINTS0 INTERPRETATIONNEGATIVE RECREATIONAL DRUG USE DRUG USE?NO CAFFEINE CAFFEINE USE?YES HOW OFTEN AND HOW MUCH? SOMETIMES SEXUAL HX HAD SEX IN THE LAST 12 MONTHS (VAGINAL, ORAL, OR ANAL)?YES WITHMEN ONLY HAVE YOU EVER HAD AN STD?YES CHLAMYDIA?YES LATTER DAY [id number] AGNOSTIC LANGUAGE LANGUAGES SPOKEN:FILIPINO DOMESTIC VIOLENCE DO YOU FEEL SAFE IN YOUR ENVIRONMENT?YES OCCUPATION: DISABLED. MARITAL STATUS: . PAIN CLINIC PFS, CLERGY, PUBLIC HEALTH REFERRALS HAS THE PATIENT BEEN EDUCATED REGARDING HIS/HER PLAN OF CARE?YES HAS THE PATIENT BEEN EDUCATED REGARDING PAIN, THE RISK FOR PAIN, THE IMPORTANCE OF EFFECTIVE PAIN MANAGEMENT, AND THE PAIN ASSESSMENT PROCESS?YES ADVANCE DIRECTIVE ADVANCE DIRECTIVE DISCUSSED WITH PATIENT:YES DECLINED, DECLINED PAPERWORK HOSPITALIZATION/MAJOR DIAGNOSTIC PROCEDURE SURGERY DM X MULTIPLE REVIEW OF SYSTEMS CONSTITUTIONAL: ANY RECENT FEVER NO . CHILLS NO . WEIGHT CHANGE OF UNKNOWN REASONS NO . GASTROENTEROLOGY: NEW UNEXPLAINABLE CHANGES IN BOWEL CONTROL NO . CONSTIPATION NO . GENITOURINARY: ANY NEW CHANGE IN BLADDER CONTROL? NO . NEUROLOGY: NEW ONSET DIZZINESS OR NEUROLOGICAL CHANGES NOT MENTIONED NO . NEW NUMBNESS OR PAIN PATTERNS NOT MENTIONED AND PERTINENT TO TODAY'S VISIT NO . CARDIOLOGY: NEW CHEST PRESSURE NO . NEW CHEST PAIN NO . RESPIRATORY: UNEXPLAINABLE COUGH NO . NEW SHORTNESS OF BREATH NO . VITAL SIGNS WT 96 LBS, HT 63 IN, BMI 17.00 INDEX, BP 129/81 MM HG, HR 110 /MIN, RR 18 /MIN, TEMP 98.6 F, OXYGEN SAT % 94, SAFE IN ENV? (Y/N) Y, REVIEWED BY: EM. EXAMINATION GENERAL EXAMINATION: GENERALAWAKE,ALERT ,PLEASANT . PSYCHAFFECT NORMAL . LUNGS:LUNG CASTRO ARE CLEAR TO AUSCULTATION BILATERALLY. GOOD MOVEMENT OF AIR . HEART:S1, S2 IN A REGULAR RATE AND RHYTHM. NO SIGNIFICANT MURMURS, RUBS OR GALLOPS NOTED . ASSESSMENTS OTHER CHRONIC PAIN - G89.29 (PRIMARY) UNSPECIFIED ABDOMINAL PAIN - R10.9 CHRONIC PRESCRIPTION OPIATE USE - Z79.891 TREATMENT OTHER CHRONIC PAIN CONTINUE TRAMADOL HCL TABLET, 100 MG, 1 TABLET NEEDED, ORALLY, THREE TIMES A DAY MDD3 CONTINUE GABAPENTIN CAPSULE, 400 MG, 2 CAPSULE, ORALLY, TID START SOMA TABLET, 350 MG, 1 TAB, ORALLY, BID, 14 DAY(S), 28 TABLET, REFILLS 0 NOTES: ISTOP REGISTRY REVIEWED AND DEMONSTRATES COMPLLIANCE. ADVISED TO BRING ALL MEDICATION THAT WE PRESCRIBE TO ALL PAIN CLINIC APPONTMENTS URINE TOX TODAY , RISKS OF NARCOTIC/OPIOD MEDICATIONS INCLUDES BUT IS NOT LIMITED TO RISK OF DEPENDANCE/DEVELOPMENT OF ADDICTION, MOOD DISTURBANCE AND DEPRESSION, OSTEOPOROSIS, HORMONAL AND LABIDAL CHANGES, RESPIRATORY DEPRESSION AND . PATIENT IS ADVISED NOT TO DRIVE OR DRINK ALCOHOL WHILE ON THESE MEDICATIONS. PROCEDURE CODES [id number] ESTABILISHED PATIENT [facility] CHARGE DISPOSITION & COMMUNICATION FOLLOW UP 6 WEEKS (REASON: MED MGMNT AFTER 14 DAY SOMA/REVIEW UTOX) ELECTRONICALLY SIGNED BY CARLOS RUBIO ON 12/09/2020 AT 02:47 PM EST DISCLAIMER : THIS IS A VISIT SUMMARY EXTRACTED FROM THE [employer] CHART. IT IS NOT A COPY OF THE [employer] PROGRESS NOTE. JERRY
== END ==
LOC: M PAIN 13:30
PROVIDERS: ATTEND Nurse Practitioner Family
DX: G89.29 Other chronic pain (principal); R10.9 Unspecified abdominal pain; E10.9 Type 1 diabetes mellitus without complications; D64.9 Anemia, unspecified; Z79.891 Long term (current) use of opiate analgesic; Z79.899 Other long term (current) drug therapy; Z88.0 Allergy status to penicillin; Z88.8 Allergy status to other drugs, medicaments and biological substances

== ENCOUNTER 2020-12-14 17:17 | Emergency (ER) | payer MEDICARE, OTHER ==
[~2020-12-14] VITALS: Ht 160 cm; Wt 41.4 kg
[~2020-12-14 17:17] MED LIST changes: +GABA-282; +GABA-282 PO; -GABA-843; -GABA-843 PO
--- OUTSIDE RECORDS SUMMARY | 2020-12-14 17:24 | CCD ---
Author Author [facility] [employer] Organization [facility] [employer] Address Unknown Phone Unavailable Care Team Providers Care Gold Blower Name Role Phone Perla Rdz Unavailable PROBLEMS Type Condition ICD9-CM Code [id number] Code Onset Dates Condition S tatus SNOMED Code Notes Problem Bladder disorders in diseases classified elsewhere N33 Active [id number] Problem Other chronic pain G89.29 Active [id number] ALLERGIES Allergen (clinical drug ingredient) Drug/Non Drug Allergy do cumented on EMR Reaction Allergy Type Onset Date Status Reglan anxiety Drug Allergy Active amoxicillin Amoxicillin(NDC Code:[address]-98) Nausea/Vomiting Drug Allergy Active hydromorphone Dilaudid(ND Code:[address]-64) Hives Drug Allerg y Active ENCOUNTERS from 1987 to 2020-12-10 Encounter Location Date Provider Diagnosis [facility] [address] [place] [id number] Dec, Perla Sandersoner Other chronic pain G89.29 ; Unspecified abdominal pain R10.9 and Chronic prescription opiate use Z79.891 IMMUNIZATIONS No Information SOCIAL HISTORY Tobacco Use: Social History Observation Description Date Details (start date - stop date) Never Smoker Sex Assigned At : Social History Observation Description Sex Assigned At Unknown Language: Question Answer Notes Languages spoken: Bruneian Zoroastrianism: Question Answer Notes Zoroastrianism 01 Agnostic Sexual Hx: Question Answer Notes Had sex in the last 12 months (vaginal, oral, or anal)? Yes Have you ever had an STD? Yes with Men only Chlamydia? Yes Alcohol Screening: Question Answer Notes Did you have a drink containing alcohol in the past year? No Points 0 Interpretation Negative Tobacco Use: Question Answer Notes Are you a: never smoker REASON FOR REFERRAL No Information VITAL SIGNS Weight 96 lbs Dec, Height 63 in Dec, BMI 17.00 kg/m2 Dec, Heart Rate 110 /min Dec, Respiratory Rate 18 /min Dec, Temperature 98.6 degrees Fahrenheit Dec, Oximetry 94 Dec, Blood pressure systolic 129 mm Hg Dec, Blood pressure diastolic 81 mm Hg Dec, MEDICATIONS Medication SIG (Take, Route, Frequency, Duration) Notes Start Da te End Date Status Paxil 20 MG 1 tablet in the morning Orally Once a day Not-Taking Pantoprazole Sodium 40 MG 1 tablet Orally bid Active Bactrim DS 800-160 MG 1 tablet Orally as directed- 1 hour prior to cystoscopy for 1 dose(s) Aug, Not-Taking Naloxone HCl 4 MG/10ML as directed Injection Active 12/21 Active PROzac 20 MG 1 capsule Orally Once a day for 30 day(s) Active Tresiba FlexTouch Active Ondansetron 4 MG 1 tablet on the tongue and a llow to dissolve Orally Once a day for 30 day(s) Not-Taking Cymbalta 20 mg po Once daily Not-T aking Gabapentin 800 MG 1 capsule Orally TID for 30 Days Not-Taking Soma 350 MG 1 tab Orally bid for 14 day(s) Dec, Active Neurontin 600 MG 1 tablet Orally Once a day Not-Taking Cipro 500 MG 1 tablet Orally Twice a day for 3 days Not-Taking Nexium 20 MG 1 capsule Orally Once a day Not-Taking Vitamin B 12 Active Gabapentin 400 MG 2 capsule Orally tid Oct, Active Sucralfate 1 GM 1 tablet on an empty stomach Orally TID Active Humalog KwikPen Active Creon 20 24,000 units orally with meals Active TraMADol HCl ER 100 MG 50mg Orally three times daily Not-Taking NovoLog Not-Taking Tramadol HCl 100 MG 1 tablet as needed Orally three times a day mdd3 Active PROCEDURES No Information RESULTS No Results REASON FOR VISIT CHRONIC PAIN MEDICAL (GENERAL) HISTORY Type Description Date Medical History DM Type 1 Medical History HX of pancreatitis Medical History Hx of gastroparesis Medical History anemia Medical History malabsorption Surgical History nerve blocks X2(abd) Surgical History patient liver was outside th e body and was fixed and appendix removed at Surgical History abdominal surgery age 8 Surgical History pancreas surgery and gallbladder removed age 14 Surgical History removed pancreas,spleen and some small i ntestine, appendix age 22 Surgical History dilated bile duct 12/2020 Hospitalization History surgery Hospitalization History DM X multiple Goals Section No Information Health Concerns No Information MEDICAL EQUIPMENT No Information MENTAL STATUS No Information FUNCTIONAL STATUS No Information ASSESSMENTS Encounter Date Diagnosis Assessment Notes Treatment Notes Treatm ent Clinical Notes Dec, Other chronic pain (ICD-10 - G89.29) ISTOP registry reviewed and demonstrates complliance. ADVISED TO BRING ALL MEDICATION THAT WE PRESCRIBE TO ALL PAIN CLINIC APPONTMENTS URINE TOX TODAY , Risks of narcotic/opiod medications includes but is not limited to risk of dependance/development of addiction, mood disturbance and depression, osteoporosis, hormonal and labidal changes, respiratory depression and . Patient is advised NOT to DRIVE or drink ALCOHOL while on these medications Dec, Unspecified abdominal pain (ICD-10 - R10.9) Dec, Chronic prescription opiate use (ICD-10 - Z79.89 1) PLAN OF TREATMENT Medication Medication Name Sig Start Date Stop Date Soma 350 MG 1 tab Orally bid for 14 day(s) Dec, Gabapentin 400 MG 2 capsule Orally tid Oct, Tramadol HCl 100 MG 1 tablet as needed Orally three times a day mdd3 Treatment Notes Assessment Notes Clinical Notes Other chronic pain ISTOP registry reviewed and demonstrates complliance.ADVISED TO BRING ALL MEDICATION THAT WE PRESCRIBE TO ALL PAIN CLINIC APPONTMENTSURINE TOX TODAY, Risks of narcotic/opiod medications includes but is not limited to risk of dependance/development of addiction, mood disturbance and depression, osteoporosis, hormonal and labidal changes, respiratory depression and . Patient is advised NOT to DRIVE or drink ALCOHOL while on these medications Next Appt Details 6 Weeks Reason:MED MGMNT AFTER 14 DAY SO MA/REVIEW UTOX Provider Name:Perla Rdz, 2021-01-19 01 :30:00 PM, [address] [place] [address], [phone], Follow Up:6 WeeksMED MGMNT AFTER 14 DAY SOMA/REVIEW UTOX Insurance Providers Payer Name Payer Address Payer Phone Insured Name Patient Relati onship to Insured Coverage Start Date Coverage End Date [facility] [employer] [address] 1930 [facility] [place] [address] Reinaldo Lilly MEDICARE Part A and B [address] [facility] [phone] [phone] SARAVANAN VELOZ self
--- OUTSIDE RECORDS SUMMARY | 2020-12-14 17:25 | CCD ---
Author Author [facility] Organization [facility] Address Unknown Phone Unavailable Care Team Providers Care Chairman Ceo Name Role Phone BAIRON, Shi MACIAS MD Unavailable Unavailable ANTECOL, Shi MACIAS MD Unavailable Unavailable ANTECOL, Shi MACIAS MD Unavailable Unavailable ANTECOL, Shi MACIAS MD Unavailable Unavailable ANTECOL, Shi MACIAS MD Unavailable Unavailable ANTECOL, Shi MACIAS MD Unavailable Unavailable ANTECOL, Shi MACIAS MD Unavailable Unavailable ANTECOL, Shi MACIAS MD Unavailable Unavailable ANTECOL, Shi MACIAS MD Unavailable Unavailable ANTECOL, Shi MACIAS MD Unavailable Unavailable ANTECOL, Shi MACIAS MD Unavailable Unavailable ANTECOL, Shi MACIAS MD Unavailable Unavailable ANTECOL, Shi MACIAS MD Unavailable Unavailable ANTECOL, Shi MACIAS MD Unavailable Unavailable ANTECOL, Shi MACIAS MD Unavailable Unavailable ANTECOL, Shi MACIAS MD Unavailable Unavailable ANTECOL, Shi MACIAS MD Unavailable Unavailable ANTECOL, Shi MACIAS MD Unavailable Unavailable ANTECOL, Shi MACIAS MD Unavailable Unavailable ANTECOL, Shi MACIAS MD Unavailable Unavailable ANTECOL, Shi MACIAS MD Unavailable Unavailable ANTECOL, Shi MACIAS MD Unavailable Unavailable ANTECOLShi MD Unavailable Unavailable ANTECOLShi MD Unavailable Unavailable ANTECOLShi MD Unavailable Unavailable ANTECOL, Shi MACIAS MD Unavailable Unavailable ANTECOL, Shi MACIAS MD Unavailable Unavailable ANTECOL, Shi MACIAS MD Unavailable Unavailable ANTECOL, Shi MACIAS MD Unavailable Unavailable ANTECOL, Shi MACIAS MD Unavailable Unavailable ANTECOL, Shi MACIAS MD Unavailable Unavailable ANTECOL, Shi MACIAS MD Unavailable Unavailable ANTECOL, Shi MACIAS MD Unavailable Unavailable ANTECOL, Shi MACIAS MD Unavailable Unavailable ANTECOL, Shi MACIAS MD Unavailable Unavailable ANTECOL, Shi MACIAS MD Unavailable Unavailable ANTECOL, Shi MACIAS MD Unavailable Unavailable ANTECOL, Shi MACISA MD Unavailable Unavailable ANTECOL, Shi MACIAS MD Unavailable Unavailable ANTECOL, Shi MACIAS MD Unavailable Unavailable ANTECOL, Shi MACIAS MD Unavailable Unavailable ANTECOL, Shi MACIAS MD Unavailable Unavailable ANTECOL, Shi MACIAS MD Unavailable Unavailable ANTECOL, Shi MACIAS MD Unavailable Unavailable ANTECOL, Shi MACIAS MD Unavailable Unavailable ANTECOL, Shi MACIAS MD Unavailable Unavailable ANTECOL, Shi MACIAS MD Unavailable Unavailable ANTECOL, Shi MACIAS MD Unavailable Unavailable ANTECOL, Shi MACIAS MD Unavailable Unavailable ANTECOL, Shi MACIAS MD Unavailable Unavailable ANTECOL, Shi MACIAS MD Unavailable Unavailable ANTECOL, Shi MACIAS MD Unavailable Unavailable ANTECOL, Shi MACIAS MD Unavailable Unavailable ANTECOL, Shi MACIAS MD Unavailable Unavailable ANTECOL, Shi MACIAS MD Unavailable Unavailable Saravia, J Donnell PA Unavailable [phone] Saravia, J Donnell PA Unavailable [phone] Saravia, J Donnell PA Unavailable [phone] Saravia, J Donnell PA Unavailable [phone] Saravia, J Donnell PA Unavailable [phone] Saravia, J Donnell PA Unavailable [phone] Saravia, J Donnell PA Unavailable [phone] Saravia, J Donnell PA Unavailable [phone] Saravia, J Donnell PA Unavailable [phone] Saravia, J Donnell PA Unavailable [phone] Marcus DASH MD Unavailable Unavailable Marcus DASH MD Unavailable Unavailable Marcus DASH MD Unavailable Unavailable Marcus DASH MD Unavailable Unavailable Marcus DASH MD Unavailable Unavailable Marcus DASH MD Unavailable Unavailable Marcus DASH MD Unavailable Unavailable Marcus DASH MD Unavailable Unavailable Marcus DASH MD Unavailable Unavailable Marcus DASH MD Unavailable Unavailable Marcus DASH MD Unavailable Unavailable Marcus DASH MD Unavailable Unavailable Marcus DASH MD Unavailable Unavailable Marcus DASH MD Unavailable Unavailable Marcus DASH MD Unavailable Unavailable Marcus DASH MD Unavailable Unavailable Marcus DASH MD Unavailable Unavailable Marcus DASH MD Unavailable Unavailable Marcus DASH MD Unavailable Unavailable Marcus DASH MD Unavailable Unavailable Marcus DASH MD Unavailable Unavailable Marcus DASH MD Unavailable Unavailable Marcus DASH MD Unavailable Unavailable Marcus DASH MD Unavailable Unavailable Marcus DASH MD Unavailable Unavailable Marcus DASH MD Unavailable Unavailable Marcus DASH MD Unavailable Unavailable Marcus DASH MD Unavailable Unavailable Marcus DASH MD Unavailable Unavailable Marcus DASH MD Unavailable Unavailable Marcus DASH MD Unavailable Unavailable Marcus DASH MD Unavailable Unavailable Marcus DASH MD Unavailable Unavailable Tristen, D Gokul Unavailable Unavailable Tristen, D Gokul Unavailable Unavailable Tristen, D Gokul Unavailable Unavailable Tristen, D Gokul Unavailable Unavailable Tristen, D Gokul Unavailable Unavailable Tristen, D Gokul Unavailable Unavailable Tristen, D Gokul Unavailable Unavailable Tristen, D Gokul Unavailable Unavailable Tristen, D Gokul Unavailable Unavailable Tristen, D Gokul Unavailable Unavailable Tristen, D Gokul Unavailable Unavailable Tristen, D Gokul Unavailable Unavailable Tristen, D Gokul Unavailable Unavailable Tristen, D Gokul Unavailable Unavailable Tristen, D Gokul Unavailable Unavailable Tristen, D Gokul Unavailable Unavailable Re-disclosure Warning The records that you are about to access may contain information from federally-assisted alcohol or drug abuse programs. If such information is present, then the following federally mandated warning applies: This information has been disclosed to you from records protected by federal confidentiality rules (42 CFR part 2). The federal rules prohibit you from making any further disclosure of this information unless further disclosure is expressly permitted by the written consent of the person to whom it pertains or as otherwise permitted by 42 CFR part 2. A general authorization for the release of medical or other information is NOT sufficient for this purpose. The Federal rules restrict any use of the information to criminally investigate or prosecute any alcohol or drug abuse patient.The records that you are about to access may contain highly sensitive health information, the redisclosure of which is protected by Article 27-F of the [place] State Public Health law. If you continue you may have access to information: Regarding HIV / AIDS; Provided by facilities licensed or operated by the [facility] Office of Mental Health; or Provided by the [facility] Office for People With Developmental Disabilities. If such information is present, then the following [facility] mandated warning applies: This information has been disclosed to you from confidential records which are protected by state law. State law prohibits you from making any further disclosure of this information without the specific written consent of the person to whom it pertains, or as otherwise permitted by law. Any unauthorized further disclosure in violation of state law may result in a fine or prison sentence or both. A general authorization for the release of medical or other information is NOT sufficient authorization for further disc losure. Family History Family Member Name Family Member Gender Family Member Status Date o f Status Description Data Source(s) Unknown Unknown Problem MED[facility] ([facility]) Unknown Male Problem MED[facility] ([facility] ) Encounters Encounter Providers Location Date Indications Data Source(s ) Outpatient [address] [facility] [id number] 12/08/2020 12:00:00 AM EST [facility] Unknown [address] [facility] [id number] 11/21/2020 12:00:00 AM EST eCW1 ([facility]) Unknown [address] [facility] [id number] 11/18/2020 12:00:00 AM EST eCW1 ([facility]) Unknown [address] [facility] [address] [address] 10/05/2020 12:00:00 AM EST [facility] Outpatient [address] [facility] [address] [address] 10/04/2020 12:00:00 AM EST eCW1 ([facility]) Unknown [address] [facility] [id number] 10/03/2020 12:00:00 AM EST eCW1 ([facility]) Outpatient Attender: Donnell BRIONES CPSCAORT-CPSCAEND 08/09/2020 03:25:00 PM EDT - 08/09/2020 03:26:00 PM EDT [facility] Patient discharged. Outpatient Attender: DELMA Deal/Kody/Alfred esteban/Arnold 06/24/2020 09:00:00 AM EDT MED[facility] ([facility], ) Outpatient Attender: GILBERTO WADDELL MD Main Office 06/15/2020 11:00:00 AM EDT MEDENT ([facility]) Outpatient Attender: Donnell BRIONES CPSCAORT-CPSCAEND 06/06/2020 03:03:00 PM EDT - 06/06/2020 03:04:00 PM EDT [facility] Patient discharged. Outpatient Attender: Gokul Ramon 05/04/2020 12:00: 00 AM EDT [facility] Dysthymic disorder Outpatient Attender: GILBERTO WADDELL MD Main Office 04/15/2020 12:30:00 PM EDT MEDENT ([facility]) Outpatient Attender: Donnell BRIONES CPSCAORT-CPSCAEND 03/28/2020 01:29:00 PM EDT - 03/28/2020 01:30:00 PM EDT [facility] Patient discharged. Outpatient Attender: Donnell BRIONES CPSCAORT-CPSCAEND 11/20/2019 12:59:00 PM EST - 11/20/2019 01:00:00 PM EST [facility] Patient discharged. Medications Medication Brand Name Start Date Product Form Dose Route Admi nistrative Instructions Pharmacy Instructions Status Indications Reaction Description Data Source(s) Carisoprodol 350 MG Oral Tablet [Soma] Soma 350 MG Soma 350 MG 12/08/2020 12:00:00 AM EST active Soma 350 MG eCW1 ([facility]) gabapentin 400 MG Oral Capsule Gabapentin 400 MG Gabapentin 400 MG 10/05/2020 12:00:00 AM EST 2.0 {capsule} active G abapentin 400 MG eCW1 ([facility]) gabapentin 400 MG Oral Capsule Gabapentin 400 MG Gabapentin 400 MG 10/05/2020 12:00:00 AM EST 2.0 {capsule} active G abapentin 400 MG eCW1 ([facility]) gabapentin 400 MG Oral Capsule Gabapentin 400 MG Gabapentin 400 MG 10/05/2020 12:00:00 AM EST 2.0 {capsule} active G abapentin 400 MG eCW1 ([facility]) gabapentin 400 MG Oral Capsule Gabapentin 400 MG Gabapentin 400 MG 10/05/2020 12:00:00 AM EST 2.0 {capsule} active G abapentin 400 MG eCW1 ([facility]) gabapentin 400 MG Oral Capsule Gabapentin 400 MG Gabapentin 400 MG 10/05/2020 12:00:00 AM EST 2.0 {capsule} active G abapentin 400 MG eCW1 ([facility]) Sucralfate 100 MG/ML Oral Suspension Sucralfate 07/20/2020 12:00:00 A M EDT ORAL active MEDENT ([facility] ) Tresiba Flextouch Tresiba Flextouch 04/14/2020 12:00:00 AM EDT active [facility] Humalog Yordan Kwikpen Humalog Yordan Kwikpen 04/14/2020 12:00:00 AM E DT active [facility] ([facility]) 8 HR Acetaminophen 650 MG Extended Release Oral Tablet Midol 04/14/2020 12:00:00 AM EDT ORAL active [facility] ([facility]) Dimenhydrinate 50 MG Oral Tablet [Dramamine] Dramamine 04/14/2020 12:00:00 AM EDT ORAL active [facility] ([facility]) Docusate Sodium 100 MG Oral Capsule Stool Softener 04/14/2020 12:00 :00 AM EDT ORAL active [facility] ([facility]) gabapentin 400 MG Oral Capsule Gabapentin 04/14/2020 12:00:00 AM EDT ORAL active [facility] ([facility]) Erythromycin 250 MG Oral Tablet Erythromycin Base 04/14/2020 12:00: 00 AM EDT ORAL active [facility] ([facility]) Microgestin 1/20 Microgestin 1/20 04/14/2020 12:00:00 AM EDT ORAL active [facility] ([facility]) duloxetine 20 MG Delayed Release Oral Capsule Duloxetine HCL 04/14/2020 12:00:00 AM EDT ORAL active MED[facility] ([facility]) tramadol hydrochloride 50 MG Oral Tablet Tramadol HCL 04/14/2020 12:00:00 AM EDT ORAL active [facility] ([facility]) pantoprazole 40 MG Delayed Release Oral Tablet Pantoprazole Sodium 04/14/2020 12:00:00 AM EDT ORAL active M EDENT ([facility]) Ondansetron 4 MG Disintegrating Oral Tablet Ondansetron 04/14/2020 12:00:00 AM EDT ORAL active [facility] ([facility]) Acetaminophen 500 MG / Diphenhydramine Hydrochloride 2 5 MG Oral Tablet Acetaminophen PM 04/14/2020 12:00:00 AM EDT ORAL active MEDENT ([facility]) Diphenhydramine Hydrochloride 25 MG Oral Tablet [Benadryl] B enadryl Allergy 04/14/2020 12:00:00 AM EDT ORAL active MEDENT ([facility]) Amylases [id number] UNT / Endopeptidases 760 00 UNT / Lipase 61640 UNT Delayed Release Oral Capsule [Creon] Creon 04/14/2020 12:00:00 AM EDT ORAL active MEDENT ([facility]) Ondansetron 4 MG Oral Tablet Ondansetron HCL 01/12/2020 12:00:00 AM EST active MED[facility] ([facility] ) Insurance Providers Payer name Policy type / Coverage type Policy ID Covered alliance party ID Covered alliance party's relationship to huff Policy Huff Plan Information MEDICARE [id number] SP [id number] [facility] ACTIVE DUTY [phone] [facility] [phone] [facility] [id number] [facility] [id number] MEDICARE [id number] SP [id number] MEDICARE [id number] SP [id number] [facility] [id number] SPOUSE [id number] 66 MEDICARE [id number] S [id number] MEDICARE A [id number] Self [id number] Self [id number] FOR LIFE [id number] [facility] [id number] [facility] (2018) Medigap Part B [id number] Family Dependen t [id number] [place] Medicare Primary [id number] Self [id number] [place] - O/P [id number] 01 [id number] MEDICARE PART A -O/P [id number] 18 [id number] [place] (2018) Medigap Part B [id number] Family Dependen t [id number] Medicare [place]/[facility] Medicare Primary [id number] Self [id number] [place] (2018) Medigap Part B [id number] Family Dependen t [id number] [place] Medicare Primary [id number] Self [id number] [place] Primary [id number] Self [id number] [place] Referrals Commercial [id number] Family Dependent [id number] FOR LIFE O [id number] S [id number] MEDICARE C [id number] S [id number] ANSI-Not a Secondary Insurance [id number] [place] Medicare Primary [id number] Self [id number] [place] Referrals Commercial [id number] Family Dependent [id number] ANSI-Not a Secondary Insurance [id number] ANSI-Not a Secondary Insurance [id number] MEDICARE A [id number] Self [id number] A [place] Primary [id number] Self [id number] [place] Referrals Commercial [id number] Self [id number] [place] O [id number] S [id number] MEDICARE C [id number] S [id number] A SELF PAY ONLY [id number] Problems, Conditions, and Diagnoses Code Display Name Description Problem Type Effective Dates Data Source(s) G89.29 [id number] Other chronic pain Problem 10/04/2020 12:00: 00 AM EST eCW1 ([facility]) [id number] Paroxysmal ventricular tachycardia Paroxysmal ve ntricular tachycardia Problem 06/15/2020 12:00:00 AM EDT MED[facility] ([facility] 7372744 Tachycardia Tachycardia Problem 04/15/2020 12:00:00 AM EDT MEDENT ([facility]) [id number] Electrocardiogram abnormal Electrocardiogram abnormal Problem 04/15/2020 12:00:00 AM EDT MED[facility] ([facility]) [id number] Dizziness and giddiness Dizziness and giddiness Proble m 04/15/2020 12:00:00 AM EDT MED[facility] ([facility]) [id number] Palpitations Palpitations Problem 04/15/2020 12:00:00 A M EDT MED[facility] ([facility]) E10.65 Type 1 diabetes mellitus with hyperglyce hoda TYPE 1 DIABETES MELLITUS WITH HYPERGLYCEMIA Diagnosis 08/09/2020 03:25:00 PM EDT [facility] 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 LONGTERM (CU RRENT) USE OF INSULIN Diagnosis 06/06/2020 03:03:00 PM T [facility] T40.2X5A Adverse effect of other opioids, initial encounter Adverse effect of other opioids, initial encounter Diagnosis 05/05/2020 07:10:06 AM [facility] R20.8 Other disturbances of skin sensation Other distu rbances of skin sensation Diagnosis 05/05/2020 07:10:06 AM [facility] 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 Undifferent iated somatoform disorder Diagnosis 05/05/2020 07:09:46 AM [facility] F34.1 Dysthymic disorder Dysthymic disorder Diagnosis 03/2020 07:09:27 AM [facility] Surgeries/Procedures Procedure Description Date Indications Data Source(s) Endoscopy Upper GI Dilate Gastric Outlet For Obstruction 07/18/2020 12:00:00 AM EDT [facility] Hospital outpatient clinic visit for assessment and ma nagement of a patient Hospital Outpatient Clinic Visit 06/06/2020 12:00:00 AM EDT [facility] GLUC BLD GLUC MNTR DEV CLEARED FDA SPEC HOME USE GLUCOSE BLO OD TEST 06/06/2020 12:00:00 AM EDT [facility] ECHO TTHRC R-T 2D W/WOM-MODE COMPL SPEC&COLR DOP 05/17 12:00:00 AM EDT [facility] ([facility]) Monitor 48HR-21Days; Recording(Connection+Recording) 04/22/2020 12:00:00 AM EDT [facility] ([employer] [facility]) [id number]; review + interpretation 04/22/2020 12:00:00 AM EDT MED[facility] ([facility]) ECG ROUTINE ECG W/LEAST 12 LDS W/I&R 04/15/2020 12:00: 00 AM EDT [facility] ([facility]) Results ID Date Data Source [id number] 12/01/2020 12:00:00 PM EST [facility] Name Value Range Interpretation Code Description Data Alta rce(s) Supporting Document(s) SARS coronavirus 2 RNA [facility] This lab was ordered by [facility] and reported by [facility]. ID Date Data Source [id number] 04/12/2020 02:56:00 PM EDT [facility] ([facility]) Name Value Range Interpretation Code Description Data Alta rce(s) Supporting Document(s) Ferritin [Mass/volume] in Serum or Plasma 655 3-105 MED[facility] ([facility]) ID Date Data Source [id number] 04/12/2020 02:56:00 PM EDT [facility] ([facility]) Name Value Range Interpretation Code Description Data Alta rce(s) Supporting Document(s) White Blood Count 9.2 4.0-10.0 [facility] ([facility]) Red Blood Count 4.27 4.00-5.40 [facility] ([facility]) Hemoglobin 13.6 [facility] ([facility]) Platelets 822 172-450 [facility] Hematocrit 42.5 [facility] ([facility]) ID Date Data Source [id number] 04/12/2020 02:56:00 PM EDT [facility] ([facility]) Name Value Range Interpretation Code Description Data Alta rce(s) Supporting Document(s) Iron 116 50-170 MEDENT (Cardiology [facility]) Iron binding capacity [Mass/volume] in Serum or Plasma 420 MEDENT ([facility]) Tibc % Saturation 27.6 [facility] ([facility]) ID Date Data Source [id number] 02/10/2020 02:58:00 PM EDT [facility] ([facility]) Name Value Range Interpretation Code Description Data Alta rce(s) Supporting Document(s) White Blood Count 9.1 4.0-10.0 [facility] Red Blood Count 3.87 4.00-5.40 [facility] ([facility]) Platelets 689 172-450 MED[facility] ([facility]iology [facility]) Hemoglobin 11.0 MED[facility] ([facility]iology [facility]) Hematocrit 35.2 [facility] ([facility]) ID Date Data Source [id number] 02/10/2020 02:58:00 PM EDT [facility] Name Value Range Interpretation Code Description Data Alta rce(s) Supporting Document(s) Albumin [Mass/volume] in Serum or Plasma 3.0 [facility] ([facility]) Alanine aminotransferase [Enzymatic activity/volume] in Serum or Pl asma 14 MED[facility] ([facility]) Calcium [Mass/volume] in Serum or Plasma 9.0 [facility] ([facility]) Carbon dioxide, total [Moles/volume] in Serum or Plasma 30 [facility] ([facility]) Alkaline phosphatase [Enzymatic activity/volume] in Serum or Plasma 5 0 [facility] ([facility]) Chloride [Moles/volume] in Serum or Plasma 100 [facility] ([facility]) Potassium [Moles/volume] in Serum or Plasma 4.1 [facility] ([facility]) Protein [Mass/volume] in Serum or Plasma 7.1 MED[facility] ([facility]) Sodium 136 MED[facility] (Cardiology A [facility]) Aspartate aminotransferase [Enzymatic activity/volume] in Serum or Plasma 10 [facility] ([facility]) Urea nitrogen [Mass/volume] in Serum or Plasma 15 [facility] ([facility]) Glucose 322 70-100 [facility] Creatinine For GFR 0.80 [facility] ([facility]) ID Date Data Source [id number] 12/30/2019 02:29:00 PM EST [facility] ([facility]) Name Value Range Interpretation Code Description Data Alta rce(s) Supporting Document(s) White Blood Count 5.80 [facility] ([facility]) Red Blood Count 4.18 [facility] ([facility]) Platelets 692 [facility] ([facility] Hemoglobin 12.7 [facility] ([facility]) Hematocrit 38.8 [facility] ([facility]) ID Date Data Source [id number] 12/22/2019 02:32:00 PM EST [facility] ([facility]) Name Value Range Interpretation Code Description Data Alta rce(s) Supporting Document(s) Alanine aminotransferase [Enzymatic activity/volume] in Serum or Pl asma 16 MED[facility] ([facility]) Albumin [Mass/volume] in Serum or Plasma 3.6 [facility] ([facility]) Calcium [Mass/volume] in Serum or Plasma 9.5 [facility] ([facility]) Carbon dioxide, total [Moles/volume] in Serum or Plasma 9.5 [facility] ([facility]) Chloride [Moles/volume] in Serum or Plasma 97 MED[facility] ([facility]) Alkaline phosphatase [Enzymatic activity/volume] in Serum or Plasma 5 1 [facility] ([facility]) Potassium [Moles/volume] in Serum or Plasma 4.50 [facility] ([facility]) Protein [Mass/volume] in Serum or Plasma 7.9 [facility] ([facility]) Sodium 135 [facility] Aspartate aminotransferase [Enzymatic activity/volume] in Serum or Plasma 16 [facility] ([facility]) Urea nitrogen [Mass/volume] in Serum or Plasma 10 [facility] ([facility]) Glucose 476 74-106 [facility] Creatinine For GFR 0.81 [facility] ([facility]) ID Date Data Source [id number] 12/22/2019 02:32:00 PM EST MED[facility] ([facility]) Name Value Range Interpretation Code Description Data Alta rce(s) Supporting Document(s) Thyroid Stimulating Hormone 3.460 ME DENT ([facility]) ID Date Data Source [id number] 12/22/2019 02:32:00 PM EST MED[facility] ([facility]) Name Value Range Interpretation Code Description Data Alta rce(s) Supporting Document(s) Iron 26 [facility] ([facility]) Tibc % Saturation 4 [facility] ([facility]) Iron binding capacity [Mass/volume] in Serum or Plasma 697 [facility] ([facility]) ID Date Data Source [id number] 12/22/2019 02:32:00 PM EST MED[facility] ([facility]) Name Value Range Interpretation Code Description Data Alta rce(s) Supporting Document(s) Ferritin [Mass/volume] in Serum or Plasma 7.0 [facility] ([facility]) ID Date Data Source [id number] 12/22/2019 02:32:00 PM EST MED[facility] ([facility]) Name Value Range Interpretation Code Description Data Alta rce(s) Supporting Document(s) White Blood Count 6.80 [facility] ([facility]) Red Blood Count 4.27 [facility] ([facility]) Platelets 683 [facility] Hemoglobin 12.9 [facility] ([facility]) Hematocrit 40.1 [facility] ([facility]) Procedure Social History Code Duration Value Status Description Data Source(s ) Smoking 12/08/2020 12:00:00 AM EST Never Smoker completed Never S moker eCW1 ([facility]) Smoking 10/04/2020 12:00:00 AM EST Never Smoker completed Never S moker eCW1 ([facility]) Smoking 10/04/2020 12:00:00 AM EST Never Smoker completed Never S moker eCW1 ([facility]) Smoking 10/04/2020 12:00:00 AM EST Never Smoker completed Never S moker eCW1 ([facility]) Smoking 10/04/2020 12:00:00 AM EST Never Smoker completed Never S moker eCW1 ([facility]) Smoking 10/03/2020 12:00:00 AM EST Never Smoker completed Never S moker eCW1 ([facility]) Alcohol intake 05/05/2020 12:00:00 AM EDT Current non-d sandeep of alcohol (finding) completed Current non-drinker of alcohol (finding) [facility] Smoking 05/05/2020 12:00:00 AM EDT Never smoker completed Never s [facility] Smoking 04/15/2020 12:00:00 AM EDT Patient has never smoked co mpleted Patient has never smoked MED[facility] ([facility]) Vital Signs ID Date Data Source [id number] Name Value Range Interpretation Code Description Data Source(s) Diastolic blood pressure 81 mm[Hg] 81 mm[Hg] eCW1 ([facility]) Systolic blood pressure 129 mm[Hg] 129 mm[Hg] e CW1 ([facility]) Body temperature 98.6 [degF] 98.6 [degF] eCW1 ( [facility]) Respiratory rate 18 /min 18 /min eCW1 ([facility]) Heart rate 110 /min 110 /min eCW1 ([facility]) Body mass index (BMI) [Ratio] 17.00 kg/m2 17.00 kg/m2 eCW1 ([facility]) Body height 63 [in_i] 63 [in_i] eCW1 ([facility]) Body weight 96 [lb_av] 96 [lb_av] eCW1 ([facility]) Diastolic blood pressure 61 mm[Hg] 61 mm[Hg] eCW1 ([facility]) Systolic blood pressure 107 mm[Hg] 107 mm[Hg] e CW1 ([facility]) Body temperature 96.8 [degF] 96.8 [degF] eCW1 ( [facility]) Respiratory rate 18 /min 18 /min eCW1 ([facility]) Heart rate 104 /min 104 /min eCW1 ([facility]) Body mass index (BMI) [Ratio] 17.57 kg/m2 17.57 kg/m2 eCW1 ([facility]) Body height 63 [in_i] 63 [in_i] eCW1 ([facility]) Body weight 99.2 [lb_av] 99.2 [lb_av] eCW1 ([facility]) Body weight 43.092 kg 43.092 kg MED[facility] ([facility]) [place] body weight 115 [lb_av] 115 [lb_av] MEDEN T ([facility]) Body mass index (BMI) [Ratio] 16.8 kg/m2 16.8 k g/m2 [facility] ([facility]) Body weight 95.00 [lb_av] 95.00 [lb_av] MED[facility] ([facility]) Body height 63 [in_i] 63 [in_i] MED[facility] ([facility]) 5'3" Diastolic blood pressure 66 mm[Hg] 66 mm[Hg] [facility] ([facility]) Systolic blood pressure 114 mm[Hg] 114 mm[facility]Hg] [facility] Body weight 43.999 kg 43.999 kg [facility] ([facility]) [place] body weight 115 [lb_av] 115 [lb_av] MEDEN T ([facility]) Body mass index (BMI) [Ratio] 17.2 kg/m2 17.2 k g/m2 [facility] ([facility]) Body weight 97.00 [lb_av] 97.00 [lb_av] [facility] ([facility]) Body height 63 [in_i] 63 [in_i] [facility] ([facility]) 5'3" Diastolic blood pressure 62 mm[Hg] 62 mm[Hg] [facility] ([facility]) Systolic blood pressure 104 mm[Hg] 104 mm[Hg] M EDENT ([facility]) Diastolic blood pressure--standing 64 mm[Hg] 6 4 mm[Hg] [facility] ([facility]) [place] adult cuff, HR 114 Systolic blood pressure--standing 95 mm[Hg] 95 mm[Hg] [facility] ([facility]) [place] adult cuff, HR 114 Diastolic blood pressure--supine 72 mm[Hg] 72 mm[Hg] [facility] ([facility]) [place] adult cuff, HR 96 Systolic blood pressure--supine 101 mm[Hg] 101 mm[Hg] [facility] ([facility]) [place] adult cuff, HR 96 Diastolic blood pressure--sitting 69 mm[Hg] 69 mm[Hg] [facility] ([facility]) [place] adult cuff, Ra Systolic blood pressure--sitting 101 mm[Hg] 101 mm[Hg] [facility] ([facility]) [place] adult cuff, Ra Heart rate 107 /min 107 /min [facility] ([facility]) Body mass index (BMI) [Ratio] 16.3 kg/m2 16.3 k g/m2 [facility] ([facility]) Body height 63 [in_i] 63 [in_i] [facility] ([facility]) 5'3" Body weight 92.00 [lb_av] 92.00 [lb_av] [facility] ([facility]) ID Date Data Source [id number] 05/05/2020 11:09:07 AM [facility] Name Value Range Interpretation Code Description Data Source(s) WEIGHT RECORDED [address] [facility] Body height Measured 63 in 63 in [facility] Patient Treatment Plan of Care Planned Activity Planned Date Details Description Data Source (s) Carisoprodol 350 MG Oral Tablet [Soma] 12/08/2020 12:00:00 AM EST eCW1 ([facility]) gabapentin 400 MG Oral Capsule 10/05/2020 12:00:00 AM EST eCW1 ([facility]) gabapentin 400 MG Oral Capsule 10/05/2020 12:00:00 AM EST eCW1 ([facility]) gabapentin 400 MG Oral Capsule 10/05/2020 12:00:00 AM EST eCW1 ([facility]) gabapentin 400 MG Oral Capsule 10/05/2020 12:00:00 AM EST eCW1 ([facility]) gabapentin 400 MG Oral Capsule 10/05/2020 12:00:00 AM EST eCW1 ([facility])
[2020-12-14] MEDS ORDERED: CARI1TAB7 (17:52)
[2020-12-14] MEDS ORDERED: CREO24CA (17:52)
--- NOTE | 2020-12-14 19:34 | REP ---
INDICATION: upper abd following endoscopy, ro free air. COMPARISON: Chest 07/09/2018. TECHNIQUE: Supine and erect views of the abdomen are performed as well as a frontal view of the chest. FINDINGS: There is no evidence of free intraperitoneal air. No compelling radiographic evidence of obstruction. No dilated bowel loops are seen. The right colon is interposed between the liver and right hemidiaphragm. Multiple metallic clips are scattered throughout the abdomen. A calcified cystic lesion in the liver is visualized. No infiltrate is seen in either lung. The heart mediastinum are within normal limits. IMPRESSION: Unremarkable abdominal series. <Electronically signed by Héctor rL > 12/14/201930
[2020-12-14] MEDS ORDERED: KETOROLAC 30 MG/ML 1ML VIAL IV ONE (19:45)
[2020-12-14] MEDS ORDERED: NS 1,000 ML IV ONE (19:45)
[2020-12-14 19:46] LABS: BASO # 0.1 10^3/uL (0.0-0.2); BASO % 1.1 % (0.0-1.0); EOS % 0.5 % (0.0-3.0); HEMOGLOBIN 14.4 g/dl (12.0-15.5); LYMPH # 3.7 10^3/uL (1.5-5.0); LYMPH % 45.6 % (24.0-44.0); MEAN CORPUSCULAR HEMOGLOBIN 32.7 pg (27.0-33.0); MEAN CORPUSCULAR VOLUME 102.3 fl (80.0-96.0); MONO # 0.5 10^3/uL (0.0-0.8); MONO % 5.9 % (0.0-5.0); NEUTROPHILS # 3.7 10^3/uL (1.5-8.5); NEUTROPHILS % 46.6 % (36.0-66.0); PLATELET COUNT, AUTOMATED 401 10^3/uL (150-450)
--- OUTSIDE RECORDS SUMMARY | 2020-12-14 19:57 | CCD ---
Author Author [facility] Organization [facility] Address Unknown Phone Unavailable Care Team Providers Care Preparing Box Tender Name Role Phone BAIRON, Shi MACIAS MD [...] Unavailable Unavailable Saravia, J Donnell PA Unavailable [phone] Saravia, J Donnell PA Unavailable [phone] Saravia, J Donnell PA Unavailable [phone] Saravia, J Donnell PA Unavailable [phone] Saravia, J Donnell PA Unavailable [phone] Saravia, J Donnell PA Unavailable [phone] Saravia, J Donnell PA Unavailable [phone] Saravia, J Donnell PA Unavailable [phone] Saravia, J Donnell PA Unavailable [phone] Saravia, J Donnell PA Unavailable [phone] Marcus DASH MD Unavailable Unavailable Marcus DASH [...] is protected by Article 27-F of the [place] State Public Health law. If you continue you may have access to information: Regarding HIV / AIDS; Provided by facilities licensed or operated by the [facility] Office of Mental Health; or Provided by the [facility] Office for People With Developmental Disabilities. If such information is present, then the following [facility] mandated warning applies: This information has been [...] law may result in a fine or long-term sentence or both. A general authorization for the release of medical or other information is NOT sufficient authorization for further disc losure. Family History Family Member Name Family Member Gender Family Member Status Date o f Status Description Data Source(s) Unknown Unknown Problem MED[facility] ([facility]) Unknown Male Problem MED[facility] ([facility] ) Encounters Encounter Providers Location Date Indications Data Source(s ) Outpatient [address] [facility] [id number] 12/08/2020 12:00:00 AM EST eCW1 ([facility]) Unknown [address] [facility] [id number] 11/21/2020 12:00:00 AM EST eCW1 ([facility]) Unknown [address] [facility] [id number] 11/18/2020 12:00:00 AM EST eCW1 ([facility]) Unknown [address] [facility] [place] [address] 10/05/2020 12:00:00 AM EST eCW1 ([facility]) Outpatient [address] [facility] [place] [address] 10/04/2020 12:00:00 AM EST eCW1 ([facility]) Unknown [address] [facility] [id number] 10/03/2020 12:00:00 AM EST eCW1 ([facility]) Outpatient Attender: Donnell BRIONES CPSCAORT-CPSCAEND 08/09/2020 03:25:00 PM EDT - 08/09/2020 03:26:00 PM EDT [facility] Patient discharged. Outpatient Attender: DELMA Deal/Kody/Alfred esteban/Arnold 06/24/2020 09:00:00 AM EDT [facility] Outpatient Attender: GILBERTO WADDELL MD Main Office 06/15/2020 11:00:00 AM EDT MED[facility] ([facility]) Outpatient Attender: Donnell BRIONES CPSCAORT-CPSCAEND 06/06/2020 03:03:00 PM EDT - 06/06/2020 03:04:00 PM EDT [facility] Patient discharged. Outpatient Attender: Gokul Ramon 05/04/2020 12:00: 00 AM EDT Dysthymic [facility] Dysthymic disorder Outpatient Attender: GILBERTO WADDELL MD Main Office 04/15/2020 12:30:00 PM EDT MED[facility] ([facility]) Outpatient Attender: Donnell BRIONES CPSCAORT-CPSCAEND 03/28/2020 01:29:00 PM EDT - 03/28/2020 01:30:00 PM EDT [facility] Patient discharged. Outpatient Attender: Donnell BRIONES CPSCAORT-CPSCAEND 11/20/2019 12:59:00 PM EST - 11/20/2019 01:00:00 PM EST [facility] Patient discharged. Medications Medication Brand Name Start Date Product Form Dose Route Admi nistrative Instructions Pharmacy Instructions Status Indications Reaction Description Data Source(s) Carisoprodol 350 MG Oral Tablet [Soma] Soma 350 MG Soma 350 MG 12/08/2020 12:00:00 AM EST active Soma 350 MG eCW1 (Replaced By [facility]) gabapentin 400 MG Oral Capsule Gabapentin 400 MG Gabapentin 400 MG 10/05/2020 12:00:00 AM EST 2.0 {capsule} active G abapentin 400 MG eCW1 (Replaced By [facility]) gabapentin 400 MG Oral Capsule Gabapentin 400 MG Gabapentin 400 MG 10/05/2020 12:00:00 AM EST 2.0 {capsule} active G abapentin 400 MG eCW1 (Replaced By [facility]) gabapentin 400 MG Oral Capsule Gabapentin 400 MG Gabapentin 400 MG 10/05/2020 12:00:00 AM EST 2.0 {capsule} active G abapentin 400 MG eCW1 (Replaced By [facility]) gabapentin 400 MG Oral Capsule Gabapentin 400 MG Gabapentin 400 MG 10/05/2020 12:00:00 AM EST 2.0 {capsule} active G abapentin 400 MG eCW1 (Replaced By [facility]) gabapentin 400 MG Oral Capsule Gabapentin 400 MG Gabapentin 400 MG 10/05/2020 12:00:00 AM EST 2.0 {capsule} active G abapentin 400 MG eCW1 (Replaced By [facility]) Sucralfate 100 MG/ML Oral Suspension Sucralfate 07/20/2020 12:00:00 A M EDT ORAL active MEDENT ([facility] ) Tresiba Flextouch Tresiba Flextouch 04/14/2020 12:00:00 AM EDT active [facility] ([facility] Humalog Yordan Kwikpen Humalog Yordan Kwikpen 04/14/2020 12:00:00 AM E DT active [facility] ([facility]) 8 HR Acetaminophen 650 MG Extended Release Oral Tablet Midol 04/14/2020 12:00:00 AM EDT ORAL active [facility] ([facility]) Dimenhydrinate 50 MG Oral Tablet [Dramamine] Dramamine 04/14/2020 12:00:00 AM EDT ORAL active [facility] ([facility]) Docusate Sodium 100 MG Oral Capsule Stool Softener 04/14/2020 12:00 :00 AM EDT ORAL active [facility] ([facility]) gabapentin 400 MG Oral Capsule Gabapentin 04/14/2020 12:00:00 AM EDT ORAL active [facility] ([facility]) Erythromycin 250 MG Oral Tablet Erythromycin Base 04/14/2020 12:00: 00 AM EDT ORAL active [facility] ([facility]) Microgestin 1/20 Microgestin 1/20 04/14/2020 12:00:00 AM EDT ORAL active [facility] ([facility]) duloxetine 20 MG Delayed Release Oral Capsule Duloxetine HCL 04/14/2020 12:00:00 AM EDT ORAL active [facility] ([facility]) tramadol hydrochloride 50 MG Oral Tablet Tramadol HCL 04/14/2020 12:00:00 AM EDT ORAL active [facility] ([facility]) pantoprazole 40 MG Delayed Release Oral Tablet Pantoprazole Sodium 04/14/2020 12:00:00 AM EDT ORAL active M EDENT ([facility]) Ondansetron 4 MG Disintegrating Oral Tablet Ondansetron 04/14/2020 12:00:00 AM EDT ORAL active [facility] ([facility]) Acetaminophen 500 MG / Diphenhydramine Hydrochloride 2 5 MG Oral Tablet Acetaminophen PM 04/14/2020 12:00:00 AM EDT ORAL active MED[facility] ([facility]) Diphenhydramine Hydrochloride 25 MG Oral Tablet [Benadryl] B enadryl Allergy 04/14/2020 12:00:00 AM EDT ORAL active MED[facility] ([facility]) Amylases [id number] UNT / Endopeptidases 760 00 UNT / Lipase 53833 UNT Delayed Release Oral Capsule [Creon] Creon 04/14/2020 12:00:00 AM EDT ORAL active MED[facility] ([facility]) Ondansetron 4 MG Oral Tablet Ondansetron HCL 01/12/2020 12:00:00 AM EST active MED[facility] ([facility] ) Insurance Providers Payer name Policy type / Coverage type Policy ID Covered constitution party ID Covered constitution party's relationship to huff Policy Huff Plan Information MEDICARE [id number] SP [id number] [facility] HUMANA [phone] [facility] [phone] [facility] ACTIVE DUTY [phone] [facility] [phone] MEDICARE [id number] SP [id number] MEDICARE [id number] SP [id number] A [facility] [id number] SPOUSE [id number] 66 MEDICARE [id number] S [id number] MEDICARE A [id number] Self [id number] Self [id number] FOR LIFE [id number] [facility] [id number] [facility] (2018) Medigap Part B [id number] Family Dependen t [id number] [place] Medicare Primary [id number] Self [id number] [place] - O/P [id number] 01 [id number] MEDICARE PART A -O/P [id number] 18 [id number] [place] (2018) Medigap Part B [id number] Family Dependen t [id number] Medicare [facility] Medicare Primary [id number] Self [id number] [place] (2018) Medigap Part B [id number] Family Dependen t [id number] Medicare [facility] Medicare Primary [id number] Self [id number] [place] Primary [id number] Self [id number] [place] Referrals Commercial [id number] Family Dependent [id number] FOR LIFE O [id number] S [id number] MEDICARE C [id number] S [id number] ANSI-Not a Secondary Insurance [id number] [place] Primary [id number] Self [id number] [place] Referrals Commercial [id number] Family Dependent [id number] ANSI-Not a Secondary Insurance [id number] ANSI-Not a Secondary Insurance [id number] MEDICARE A [id number] Self [id number] A [place] Primary [id number] Self [id number] [place] Referrals Commercial [id number] Self [id number] [place] O [id number] S [id number] MEDICARE C [id number] S [id number] A SELF PAY ONLY [id number] [facility] [id number] Problems, Conditions, and Diagnoses Code Display Name Description Problem Type Effective Dates Data Source(s) G89.29 [id number] Other chronic pain Problem 10/04/2020 12:00: 00 AM EST eCW1 (Replaced By [facility]) [id number] Paroxysmal ventricular tachycardia Paroxysmal ve ntricular tachycardia Problem 06/15/2020 12:00:00 AM EDT MED[facility] ([facility]) [id number] Tachycardia Tachycardia Problem 04/15/2020 12:00:00 AM EDT MEDENT ([facility]) [id number] Electrocardiogram abnormal Electrocardiogram abnormal Problem 04/15/2020 12:00:00 AM EDT MEDENT ([facility]) [id number] Dizziness and giddiness Dizziness and giddiness Proble m 04/15/2020 12:00:00 AM EDT MEDENT ([facility]) [id number] Palpitations Palpitations Problem 04/15/2020 12:00:00 A M EDT MEDENT ([facility]) E10.65 Type 1 diabetes mellitus with hyperglyce hoda TYPE 1 DIABETES MELLITUS WITH HYPERGLYCEMIA Diagnosis 08/09/2020 03:25:00 PM EDT [facility] Z79.4 jail (current) use of insulin SIZER HAND (CU RRENT) USE OF INSULIN Diagnosis 06/06/2020 03:03:00 PM [facility] T40.2X5A Adverse effect of other opioids, initial encounter Adverse effect of other opioids, initial encounter Diagnosis 05/05/2020 07:10:06 AM [facility] R20.8 Other disturbances of skin sensation Other distu rbances of skin sensation Diagnosis 05/05/2020 07:10:06 AM [facility] 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 Undifferent iated somatoform disorder Diagnosis 05/05/2020 07:09:46 AM [facility] F34.1 Dysthymic disorder Dysthymic disorder Diagnosis 03/2020 07:09:27 AM [facility] Surgeries/Procedures Procedure Description Date Indications Data Source(s) Endoscopy Upper GI Dilate Gastric Outlet For Obstruction 07/18/2020 12:00:00 AM [facility] Hospital outpatient clinic visit for assessment and ma nagement of a patient Hospital Outpatient Clinic Visit 06/06/2020 12:00:00 AM EDT [facility] GLUC BLD GLUC MNTR DEV CLEARED FDA SPEC HOME USE GLUCOSE BLO OD TEST 06/06/2020 12:00:00 AM EDT [facility] ECHO TTHRC R-T 2D W/WOM-MODE COMPL SPEC&COLR DOP 05/17 12:00:00 AM EDT MED[facility] ([facility]) Monitor 48HR-21Days; Recording(Connection+Recording) 04/22/2020 12:00:00 AM [facility]) [id number]; review + interpretation 04/22/2020 12:00:00 AM EDT [facility] ([facility]) ECG ROUTINE ECG W/LEAST 12 LDS W/I&R 04/15/2020 12:00: 00 AM EDT [facility] ([facility]) Results ID Date Data Source [id number] 12/01/2020 12:00:00 PM EST [facility] Name Value Range Interpretation Code Description Data Alta rce(s) Supporting Document(s) SARS coronavirus 2 RNA [facility] This lab was ordered by [facility] and reported by [facility]. ID Date Data Source [id number] 04/12/2020 02:56:00 PM EDT [facility] Name Value Range Interpretation Code Description Data Alta rce(s) Supporting Document(s) Ferritin [Mass/volume] in Serum or Plasma 655 3-105 [facility] ([facility]) ID Date Data Source [id number] 04/12/2020 02:56:00 PM EDT MED[facility] ([facility]) Name Value Range Interpretation Code Description Data Alta rce(s) Supporting Document(s) White Blood Count 9.2 4.0-10.0 [facility] ([facility]) Red Blood Count 4.27 4.00-5.40 [facility] ([facility]) Hemoglobin 13.6 [facility] ([facility]) Platelets 822 172-450 [facility] Hematocrit 42.5 [facility] ([facility]) ID Date Data Source [id number] 04/12/2020 02:56:00 PM EDT [facility] ([facility]) Name Value Range Interpretation Code Description Data Alta rce(s) Supporting Document(s) Iron 116 50-170 [facility] ([facility] Iron binding capacity [Mass/volume] in Serum or Plasma 420 [facility] ([facility]) Tibc % Saturation 27.6 [facility] ([facility]) ID Date Data Source [id number] 02/10/2020 02:58:00 PM EDT [facility] ([facility]) Name Value Range Interpretation Code Description Data Alta rce(s) Supporting Document(s) White Blood Count 9.1 4.0-10.0 [facility] Red Blood Count 3.87 4.00-5.40 [facility] ([facility]) Platelets 689 172-450 MED[facility] ([facility]) Hemoglobin 11.0 MED[facility] ([facility]) Hematocrit 35.2 MED[facility] ([facility]) ID Date Data Source [id number] 02/10/2020 02:58:00 PM EDT [facility] Name Value Range Interpretation Code Description Data Alta rce(s) Supporting Document(s) Albumin [Mass/volume] in Serum or Plasma 3.0 [facility] ([facility]) Alanine aminotransferase [Enzymatic activity/volume] in Serum or Pl asma 14 [facility] ([facility]) Calcium [Mass/volume] in Serum or Plasma 9.0 [facility] ([facility]) Carbon dioxide, total [Moles/volume] in Serum or Plasma 30 [facility] ([facility]) Alkaline phosphatase [Enzymatic activity/volume] in Serum or Plasma 5 0 [facility] ([facility]) Chloride [Moles/volume] in Serum or Plasma 100 [facility] ([facility]) Potassium [Moles/volume] in Serum or Plasma 4.1 [facility] ([facility]) Protein [Mass/volume] in Serum or Plasma 7.1 [facility] ([facility]) Sodium 136 [facility] Aspartate aminotransferase [Enzymatic activity/volume] in Serum or Plasma 10 [facility] ([facility]) Urea nitrogen [Mass/volume] in Serum or Plasma 15 [facility] ([facility]) Glucose 322 70-100 [facility] ([facility]) Creatinine For GFR 0.80 [facility] ([facility]) ID Date Data Source [id number] 12/30/2019 02:29:00 PM EST [facility] ([facility]) Name Value Range Interpretation Code Description Data Alta rce(s) Supporting Document(s) White Blood Count 5.80 [facility] ([facility]) Red Blood Count 4.18 [facility] ([facility]) Platelets 692 [facility] ([facility]) Hemoglobin 12.7 [facility] ([facility]) Hematocrit 38.8 [facility] ([facility]) ID Date Data Source [id number] 12/22/2019 02:32:00 PM EST [facility] ([facility]) Name Value Range Interpretation Code Description Data Alta rce(s) Supporting Document(s) Alanine aminotransferase [Enzymatic activity/volume] in Serum or Pl asma 16 [facility] ([facility]) Albumin [Mass/volume] in Serum or Plasma 3.6 [facility] ([facility]) Calcium [Mass/volume] in Serum or Plasma 9.5 [facility] ([facility]) Carbon dioxide, total [Moles/volume] in Serum or Plasma 9.5 [facility] ([facility]) Chloride [Moles/volume] in Serum or Plasma 97 [facility] ([facility]) Alkaline phosphatase [Enzymatic activity/volume] in Serum or Plasma 5 1 [facility] ([facility]) Potassium [Moles/volume] in Serum or Plasma 4.50 [facility] ([facility]) Protein [Mass/volume] in Serum or Plasma 7.9 [facility] ([facility]) Sodium 135 [facility] ([facility]) Aspartate aminotransferase [Enzymatic activity/volume] in Serum or Plasma 16 [facility] ([facility]) Urea nitrogen [Mass/volume] in Serum or Plasma 10 [facility] ([facility]) Glucose 476 74-106 [facility] ([facility]) Creatinine For GFR 0.81 [facility] ([facility]) ID Date Data Source [id number] 12/22/2019 02:32:00 PM EST [facility] ([facility]) Name Value Range Interpretation Code Description Data Alta rce(s) Supporting Document(s) Thyroid Stimulating Hormone 3.460 [facility] ([facility]) ID Date Data Source [id number] 12/22/2019 02:32:00 PM EST [facility] ([facility]) Name Value Range Interpretation Code Description Data Alta rce(s) Supporting Document(s) Iron 26 [facility] ([facility]) Tibc % Saturation 4 [facility] ([facility]) Iron binding capacity [Mass/volume] in Serum or Plasma 697 [facility] ([facility]) ID Date Data Source [id number] 12/22/2019 02:32:00 PM EST [facility] ([facility]) Name Value Range Interpretation Code Description Data Alta rce(s) Supporting Document(s) Ferritin [Mass/volume] in Serum or Plasma 7.0 [facility] ([facility]) ID Date Data Source [id number] 12/22/2019 02:32:00 PM EST [facility] ([facility]) Name Value Range Interpretation Code Description Data Alta rce(s) Supporting Document(s) White Blood Count 6.80 [facility] ([facility]) Red Blood Count 4.27 [facility] ([facility]) Platelets 683 [facility] ([facility]) Hemoglobin 12.9 [facility] ([facility]) Hematocrit 40.1 [facility] ([facility]) Procedure Social History Code Duration Value Status Description Data Source(s ) Smoking 12/08/2020 12:00:00 AM EST Never Smoker completed Never S moker eCW1 (Replaced By [facility]) Smoking 10/04/2020 12:00:00 AM EST Never Smoker completed Never S moker eCW1 (Replaced By [facility]) Smoking 10/04/2020 12:00:00 AM EST Never Smoker completed Never S moker eCW1 (Replaced By [facility]) Smoking 10/04/2020 12:00:00 AM EST Never Smoker completed Never S moker eCW1 (Replaced By [facility]) Smoking 10/04/2020 12:00:00 AM EST Never Smoker completed Never S moker eCW1 (Replaced By [facility]) Smoking 10/03/2020 12:00:00 AM EST Never Smoker completed Never S moker eCW1 (Replaced By [facility]) Alcohol intake 05/05/2020 12:00:00 AM EDT Current non-d sandeep of alcohol (finding) completed Current non-drinker of alcohol (finding) [facility] Smoking 05/05/2020 12:00:00 AM EDT Never smoker completed Never s [facility] Smoking 04/15/2020 12:00:00 AM EDT Patient has never smoked co mpleted Patient has never smoked [facility] ([facility]) Vital Signs ID Date Data Source UNK Name Value Range Interpretation Code Description Data Source(s) Diastolic blood pressure 81 mm[Hg] 81 mm[Hg] eCW1 (Replaced By [facility]) Systolic blood pressure 129 mm[Hg] 129 mm[Hg] e CW1 (Replaced By [facility]) Body temperature 98.6 [degF] 98.6 [degF] eCW1 ( Replaced By [facility]) Respiratory rate 18 /min 18 /min eCW1 ([facility]) Heart rate 110 /min 110 /min eCW1 ([facility]) Body mass index (BMI) [Ratio] 17.00 kg/m2 17.00 kg/m2 eCW1 (Replaced By [facility]) Body height 63 [in_i] 63 [in_i] eCW1 ([facility]) Body weight 96 [lb_av] 96 [lb_av] eCW1 ([facility]) Diastolic blood pressure 61 mm[Hg] 61 mm[Hg] eCW1 (Replaced By [facility]) Systolic blood pressure 107 mm[Hg] 107 mm[Hg] e CW1 (Replaced By [facility]) Body temperature 96.8 [degF] 96.8 [degF] eCW1 ( Replaced By [facility]) Respiratory rate 18 /min 18 /min eCW1 ([facility]) Heart rate 104 /min 104 /min eCW1 ([facility]) Body mass index (BMI) [Ratio] 17.57 kg/m2 17.57 kg/m2 eCW1 (Replaced By [facility]) Body height 63 [in_i] 63 [in_i] eCW1 ([facility]) Body weight 99.2 [lb_av] 99.2 [lb_av] eCW1 ([facility]) Body weight 43.092 kg 43.092 kg MEDENT ([facility]) [place] body weight 115 [lb_av] 115 [lb_av] MEDEN T ([facility]) Body mass index (BMI) [Ratio] 16.8 kg/m2 16.8 k g/m2 [facility] ([facility]) Body weight 95.00 [lb_av] 95.00 [lb_av] [facility] ([facility]) Body height 63 [in_i] 63 [in_i] [facility] 5[facility]" Diastolic blood pressure 66 mm[Hg] 66 mm[Hg] [facility] ([facility]) Systolic blood pressure 114 mm[Hg] 114 mm[Hg] [facility] Body weight 43.999 kg 43.999 kg [facility] ([facility]) [place] body weight 115 [lb_av] 115 [lb_av] [facility] ([facility]) Body mass index (BMI) [Ratio] 17.2 kg/m2 17.2 k g/m2 [facility] ([facility]) Body weight 97.00 [lb_av] 97.00 [lb_av] [facility] ([facility]) Body height 63 [in_i] 63 [in_i] [facility] 5'3" Diastolic blood pressure 62 mm[Hg] 62 mm[Hg] [facility] ([facility]) Systolic blood pressure 104 mm[Hg] 104 mm[Hg] [facility] Diastolic blood pressure--standing 64 mm[Hg] 6 4 mm[Hg] [facility] [place] adult cuff, HR 114 Systolic blood pressure--standing 95 mm[Hg] 95 mm[Hg] [facility] ([facility]) Omron adult cuff, HR 114 Diastolic blood pressure--supine 72 mm[Hg] 72 mm[Hg] [facility] ([facility]) Omron adult cuff, HR 96 Systolic blood pressure--supine 101 mm[Hg] 101 mm[Hg] [facility] ([facility]) Omron adult cuff, HR 96 Diastolic blood pressure--sitting 69 mm[Hg] 69 mm[Hg] [facility] ([facility]) Omron adult cuff, Ra Systolic blood pressure--sitting 101 mm[Hg] 101 mm[Hg] [facility] ([facility]) Omron adult cuff, Ra Heart rate 107 /min 107 /min [facility] ([facility] Body mass index (BMI) [Ratio] 16.3 kg/m2 16.3 k g/m2 [facility] ([facility]) Body height 63 [in_i] 63 [in_i] [facility] 5'3" Body weight 92.00 [lb_av] 92.00 [lb_av] [facility] ([facility]) ID Date Data Source [id number] 05/05/2020 11:09:07 AM [facility] Name Value Range Interpretation Code Description Data Source(s) WEIGHT RECORDED 93 lb 93 lb [facility] Body height Measured 63 in 63 in [facility] Patient Treatment Plan of Care Planned Activity Planned Date Details Description Data Source (s) Carisoprodol 350 MG Oral Tablet [Soma] 12/08/2020 12:00:00 AM EST eCW1 (Replaced By [facility]) gabapentin 400 MG Oral Capsule 10/05/2020 12:00:00 AM EST eCW1 (Replaced By [facility]) gabapentin 400 MG Oral Capsule 10/05/2020 12:00:00 AM EST eCW1 (Replaced By [facility]) gabapentin 400 MG Oral Capsule 10/05/2020 12:00:00 AM EST eCW1 (Replaced By [facility]) gabapentin 400 MG Oral Capsule 10/05/2020 12:00:00 AM EST eCW1 (Replaced By [facility]) gabapentin 400 MG Oral Capsule 10/05/2020 12:00:00 AM EST eCW1 (Replaced By [facility])
[2020-12-14 20:09] LABS: HCG, SERUM QUALITATIVE NEGATIVE (NEGATIVE)
[2020-12-14 20:10] LABS: ALBUMIN 3.7 GM/DL (3.2-5.2); ALT/SGPT 25 U/L (12-78); AMYLASE 67 U/L (25-115); BILIRUBIN,DIRECT < 0.1 MG/DL (0.0-0.2); BILIRUBIN,TOTAL 0.3 MG/DL (0.2-1.0); BLOOD UREA NITROGEN 10 MG/DL (7-18); CALCIUM LEVEL 9.5 MG/DL (8.5-10.1); CARBON DIOXIDE LEVEL 27 MEQ/L (21-32); CHLORIDE LEVEL 101 MEQ/L (98-107); CREATININE FOR GFR 0.78 MG/DL (0.55-1.30); GLOMERULAR FILTRATION RATE > 60.0 (>60); GLUCOSE, FASTING 219 MG/DL (70-100); LIPASE 22 U/L (73-393); POTASSIUM SERUM 4.1 MEQ/L (3.5-5.1); SODIUM LEVEL 137 MEQ/L (136-145); TOTAL PROTEIN 7.2 GM/DL (6.4-8.2)
[2020-12-14] MEDS ORDERED: ISOVUE-370 76% 100ML VIAL As Ordered ONE (20:37)
--- NOTE | 2020-12-14 21:38 | REPVR ---
PROCEDURE INFORMATION: Exam: CT Abdomen And Pelvis With Contrast Exam date and time: 12/14/2020 8:33 PM Age: 35 years old Clinical indication: Abdominal pain; Additional info: Recent egd dec 06, diffuse abd pain TECHNIQUE: Imaging protocol: Computed tomography of the abdomen and pelvis with intravenous contrast. Radiation optimization: All CT scans at this facility use at least one of these dose optimization techniques: automated exposure control; mA and/or kV adjustment per patient size (includes targeted exams where dose is matched to clinical indication); or iterative reconstruction. Contrast material: ISOVUE 370; Contrast volume: 100 ml; Contrast route: INTRAVENOUS (IV); COMPARISON: CT ABD/PEL W/IV ORAL CONTRAS 09/24/2018 4:22 PM FINDINGS: Liver: The liver remains markedly enlarged. Liver is heterogeneous with nonspecific foci of ill-defined enhancement. Geographic area of hypoenhancement in the midline liver is not significantly changed. Peripherally calcified mass in the right lobe of the liver is not significantly changed. Gallbladder and bile ducts: The gallbladder is not visualized. No biliary duct dilation. Pancreas: The pancreas is not visualized. Spleen: The spleen is absent. Adrenal glands: Normal. No mass. Kidneys and ureters: Normal. No hydronephrosis. 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 Postoperative changes in the small bowel in the left abdomen. Mild intraluminal fluid and mucosal enhancement are noted in the small bowel. No wall thickening or other inflammatory changes. No bowel obstruction. The stomach and colon are unremarkable. Appendix: No evidence of appendicitis. Intraperitoneal space: Unremarkable. No free air. No significant fluid collection. Retroperitoneal space: Enhancing round 3.3 cm retroperitoneal mass in the left pericolic gutter is unchanged. Vasculature: Portal vein is patent. No aortic aneurysm or dissection. Lymph nodes: Unremarkable. No enlarged lymph nodes. Urinary bladder: Unremarkable as visualized. Reproductive: Unremarkable as visualized. Bones/joints: Unremarkable. No acute fracture. Soft tissues: Unremarkable. IMPRESSION: 1. Stable hepatomegaly with heterogeneous liver parenchyma and ill-defined areas of liver enhancement and hypoenhancement as above. 2. Periportal and gastric varices, similar to the prior exam. 3. Mild mucosal enhancement and intraluminal fluid in the small bowel is nonspecific but may indicate a viral enteritis. No obstruction. 4. Stable appearance of enhancing mass in the left pericolic gutter, possibly an accessory spleen or ectopic splenic tissue. Electronically signed by: Jeremías Malik On 12/14/2020 21:38:29 PM
[2020-12-14] MEDS ORDERED: HYDR-3713 PO (22:21)
[2020-12-14] MEDS ORDERED: NORCO 5/325MG TABLET (BULK FOR ED) PO ONE (22:30)
[2020-12-14 22:44] VITALS: BP 141/90
--- NOTE | 2020-12-15 00:52 | ECGEPIP ---
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
--- NOTE | 2020-12-17 06:58 | ED PDOC ---
Post-Departure Follow-Up dr huitron faxed formal report of ct abd/p for fu Sonja Lee MD Dec 17, 2020 06:57
== END 2020-12-14 22:55 | disposition home or self-care (01) ==
LOC: M ED 17:17
DX: R10.84 Generalized abdominal pain (principal); R20.2 Paresthesia of skin; R94.31 Abnormal electrocardiogram [ECG] [EKG]; R11.2 Nausea with vomiting, unspecified; R16.0 Hepatomegaly, not elsewhere classified; R19.00 Intra-abdominal and pelvic swelling, mass and lump, unspecified site; K76.89 Other specified diseases of liver; E10.9 Type 1 diabetes mellitus without complications; K31.84 Gastroparesis; K21.9 Gastro-esophageal reflux disease without esophagitis; Z88.1 Allergy status to other antibiotic agents; Z88.8 Allergy status to other drugs, medicaments and biological substances; Z79.899 Other long term (current) drug therapy
CPT/HCPCS: 74021; 74177; 80048; 80076; 82150; 83690; 84703; 85025; 93005; 93041; 94760; 96361; 96374; 99285; J1885; Q9967

== ENCOUNTER → 2021-01-19 | Outpatient (CLI) | payer MEDICARE, OTHER ==
[~2021-01-19] MED LIST changes: +CARI1TAB7; +CREO24CA; +HYDR-3713 PO
--- NOTE | 2021-01-25 06:42 | ECWPNPC ---
PATIENT NAME: SARAVANAN VELOZ : 1985 GENDER: FEMALE VISIT DATE: 01/19/2021 DISCHARGE DATE: 01/19/21 1439 VISIT LOCKED DATE TIME: PHYSICIAN: CHARANJIT BUSH RESOURCE: CHARANJIT BUSH REASON FOR APPOINTMENT 1. MED MGMNT AFTER 14 DAY SOMA/REVIEW UTOX HISTORY OF PRESENT ILLNESS GENERAL: HERE FOR FOLLOW-UP OF CHRONIC ABDOMINAL PAIN WITH EXTENSIVE HISTORY OF MULTIPLE ABDOMINAL SURGERIES AND REMOVAL OF PANCREAS IN HER TEENAGE YEARS. FOLLOWS WITH GASTROENTEROLOGY. RECENT HISTORY OF OVER TAKING TRAMADOL AND GABAPENTIN DUE TO REPORTS OF VOMITING. DISCUSSED NARCOTIC AGREEMENT AND CLINIC POLICY IN REGARDS TO USE OF NARCOTIC PAIN MEDICATIONS I'VE ADVISED HER THAT I WILL NOT PRESCRIBE MEDICATION FOR HER IF SHE ADJUSTS HER OWN MEDICATIONS FOR ANY REASON INCLUDING VOMITING IN THE FUTURE. REPORTING SOME IMPROVEMENT WITH USE OF SOMA THAT I ORDERED FOR SHORT TIME WITH A RECENT FLAREUP.-. FALL RISK SCREENING: SCREENING :NO FALLS REPORTED IN THE LAST YEAR PAIN SCREENING: PATIENT HAS A COMPLAINT OF ACUTE OR CHRONIC PAIN :YES LOCATION OF PAIN:ABDOMEN, NECK, LOW BACK INTENSITY OF PAIN (SCALE OF 1 TO 10):6 WHAT DOES YOUR PAIN FEEL LIKE:BURNING, INTERMITTENT, SHARP HOT, GRIPPING DURATION:INTERMITTENT, AWAKENS FROM SLEEP PAIN IS INCREASED BY:ACTIVITIES, PROLONGED STANDING LAYING DOWN PAIN IS DECREASED BY:USE OF PAIN MEDICATIONS, SITTING, OTHERS HEATING PAD, STRETCHING NURSING NOTE: -. PAIN CENTER INTAKE QUESTIONS: DO YOU HAVE A HISTORY OF MRSA? :NO DO YOU TAKE A BLOOD THINNERS? :NO DO YOU HAVE ANY BLEEDING DISORDERS? :NO ANY NEW NUMBNESS OR WEAKNESS IN YOUR LEGS OR ARMS? :NO ANY PACEMAKER,DEFIBRILLATOR, OR DORSAL COLUMN STIMULATOR? :NO DO YOU HAVE ANY RASHES OR OPEN SORES? :NO ARE YOU ALLERGIC TO IV DYE? :NO ARE YOU DIABETIC? :YES TYPE I ANY NEW PROBLEMS WITH YOUR MEDICATIONS? :NO HAVE YOU RECEIVED A VACCINE IN THE PAST 30 DAYS? :YES IF SO WHAT VACCINE AND WHEN? FIRST COVID VACCINATION RECEIVED 01/10/2021. DO YOU PLAN TO RECEIVE A VACCINE IN THE NEXT 21 DAYS? :YES IF SO WHAT VACCINE AND WHEN? SECOND COVID VACCINATION 02/01/2021 DO YOU NEED ANY PRESCRIPTION? :YES GABAPENTIN, TRAMADOL DO YOU TAKE ANY IMMUNOSUPPRESSIVE MEDICATIONS? :NO IS THERE A CHANCE YOU COULD BE ? :NO ARE YOU BREAST FEEDING? :NO CURRENT MEDICATIONS TAKING CREON 20 24,000 UNITS ORALLY WITH MEALS TAKING VITAMIN B 12 TAKING HUMALOG KWIKPEN TAKING TRESIBA FLEXTOUCH TAKING JUNEL 12/21 TAKING PANTOPRAZOLE SODIUM 40 MG TABLET DELAYED RELEASE 1 TABLET ORALLY BID TAKING SUCRALFATE 1 GM TABLET 1 TABLET ON AN EMPTY STOMACH ORALLY TID TAKING NALOXONE HCL 4 MG/10ML SOLUTION DIRECTED INJECTION TAKING PROZAC 20 MG CAPSULE 1 CAPSULE ORALLY ONCE A DAY TAKING GABAPENTIN 400 MG CAPSULE 2 CAPSULE ORALLY TID TAKING TRAMADOL HCL 50 MG TABLET 1 TO 2 TAB ORALLY Q4-6 HR NEEDED FOR SEVERE PAIN MDD6 TAKING XIFAXAN 200 MG TABLET 2 TABLETS ORALLY THREE TIMES A DAY NOT-TAKING SOMA 350 MG TABLET 1 TAB ORALLY BID NOT-TAKING TRAMADOL HCL 100 MG TABLET 1 TABLET NEEDED ORALLY THREE TIMES A DAY MDD3 NOT-TAKING CYMBALTA 20 MG PO ONCE DAILY NOT-TAKING ONDANSETRON 4 MG TABLET DISINTEGRATING 1 TABLET ON THE TONGUE AND ALLOW TO DISSOLVE ORALLY ONCE A DAY NOT-TAKING GABAPENTIN 800 MG TABLET 1 CAPSULE ORALLY TID NOT-TAKING TRAMADOL HCL ER 100 MG CAPSULE EXTENDED RELEASE 24 HOUR 50MG ORALLY THREE TIMES DAILY NOT-TAKING BACTRIM DS 800-160 MG TABLET 1 TABLET ORALLY DIRECTED- 1 HOUR PRIOR TO CYSTOSCOPY NOT-TAKING PAXIL 20 MG TABLET 1 TABLET IN THE MORNING ORALLY ONCE A DAY NOT-TAKING NEXIUM 20 MG CAPSULE DELAYED RELEASE 1 CAPSULE ORALLY ONCE A DAY NOT-TAKING NEURONTIN 600 MG TABLET 1 TABLET ORALLY ONCE A DAY, NOTES: 2100 MG DAILY NOT-TAKING NOVOLOG NOT-TAKING CIPRO 500 MG TABLET 1 TABLET ORALLY TWICE A DAY MEDICATION LIST REVIEWED AND RECONCILED WITH THE PATIENT PAST MEDICAL HISTORY DM TYPE 1 HX OF PANCREATITIS HX OF GASTROPARESIS ANEMIA MALABSORPTION ALLERGIES AMOXICILLIN: NAUSEA/VOMITING - ALLERGY REGLAN: ANXIETY - ALLERGY DILAUDID: HIVES - ALLERGY SOCIAL HISTORY GENERAL: TOBACCO USE ARE YOU A:NONSMOKER LATEX QUESTIONNAIRE LATEX ALLERGY : HAVE YOU EVER DEVELOPED ANY TYPE OF REACTION AFTER HANDLING LATEX PRODUCTS SUCH RUBBER GLOVES, CONDOMS, DIAPHRAGMS, BALLOONS, SOCKS, OR UNDERWEAR?NO LATEX ALLERGY : HAVE YOU EVER DEVELOPED ANY TYPE OF REACTION DURING OR AFTER DENTAL APPOINTMENT, VAGINAL/RECTAL EXAMINATION, SURGICAL PROCEDURE, OR ANY OTHER EXPOSURE?NO LATEX RISK : HAVE YOU EVER HAD ANY DIFFICULTY BREATHING OR HIVES AFTER EATING OR HANDLING ANY FRUITS, OR VEGETABLES; SUCH KIWI, BANANAS, STONE FRUITS, OR CHESTNUTSNO LATEX RISK : DO YOU HAVE A PREVIOUS PERSONAL HISTORY OF MORE THAN NINE SURGERIES, SPINA BIFIDA, OR REPEATED CATHERIZATIONS? YES - PLEASE INDICATE : > 9 SURGERIES LATEX RISK : ARE YOU FREQUENTLY EXPOSED TO LATEX PRODUCTS IN YOUR OCCUPATION?NO DATE ASKED : 01/19/2021 ALCOHOL USE: NO. ALCOHOL SCREENING DID YOU HAVE A DRINK CONTAINING ALCOHOL IN THE PAST YEAR?NO POINTS0 INTERPRETATIONNEGATIVE RECREATIONAL DRUG USE DRUG USE?NO CAFFEINE CAFFEINE USE?YES HOW OFTEN AND HOW MUCH? SOMETIMES SEXUAL HX HAD SEX IN THE LAST 12 MONTHS (VAGINAL, ORAL, OR ANAL)?YES WITHMEN ONLY HAVE YOU EVER HAD AN STD?YES CHLAMYDIA?YES ORTHODOXY [id number] AGNOSTIC LANGUAGE LANGUAGES SPOKEN:YORUBA LEARNING BARRIERS / SPECIAL NEEDS BARRIERS TO LEARNING?NO HEARING IMPAIRED?NO VISION IMPAIRED?YES :CORRECTIVE LENSES COGNITIVELY IMPAIRED?NO READINESS TO LEARN?YES LEARNING PREFERENCES?NO LEARNING CAPABILITIES PRESENT?YES EMOTIONAL BARRIERS?YES ANXIETY AND DEPRESSION SPECIAL DEVICES?NO DINING ROOM HELPER NEEDED?NO DOMESTIC VIOLENCE DO YOU FEEL SAFE IN YOUR ENVIRONMENT?YES OCCUPATION: DISABLED. MARITAL STATUS: . - HAS THE PATIENT BEEN EDUCATED REGARDING HIS/HER PLAN OF CARE?YES HAS THE PATIENT BEEN EDUCATED REGARDING PAIN, THE RISK FOR PAIN, THE IMPORTANCE OF EFFECTIVE PAIN MANAGEMENT, AND THE PAIN ASSESSMENT PROCESS?YES ADVANCE DIRECTIVE ADVANCE DIRECTIVE DISCUSSED WITH PATIENT:YES DECLINED, DECLINED PAPERWORK REVIEW OF SYSTEMS CONSTITUTIONAL: ANY RECENT FEVER NO . CHILLS NO . WEIGHT CHANGE OF UNKNOWN REASONS NO . GASTROENTEROLOGY: NEW UNEXPLAINABLE CHANGES IN BOWEL CONTROL NO . CONSTIPATION NO . GENITOURINARY: ANY NEW CHANGE IN BLADDER CONTROL? NO . NEUROLOGY: NEW ONSET DIZZINESS OR NEUROLOGICAL CHANGES NOT MENTIONED NO . NEW NUMBNESS OR PAIN PATTERNS NOT MENTIONED AND PERTINENT TO TODAY'S VISIT NO . CARDIOLOGY: NEW CHEST PRESSURE NO . NEW CHEST PAIN NO . RESPIRATORY: UNEXPLAINABLE COUGH NO . NEW SHORTNESS OF BREATH NO . VITAL SIGNS WT 92.8 LBS, HT 63 IN, BMI 16.44 INDEX, BP 105/69 MM HG, HR 124 /MIN, RR 18 /MIN, TEMP 97.4 F, OXYGEN SAT % 95%, SAFE IN ENV? (Y/N) YES, NA INITIALS [facility] 13:42, REVIEWED BY: JULIO WHITMORE MA. EXAMINATION GENERAL EXAMINATION: GENERALAWAKE,ALERT ,PLEASANT . PSYCHAFFECT NORMAL . LUNGS:LUNG CASTRO ARE CLEAR TO AUSCULTATION BILATERALLY. GOOD MOVEMENT OF AIR . HEART:S1, S2 IN A REGULAR RATE AND RHYTHM. NO SIGNIFICANT MURMURS, RUBS OR GALLOPS NOTED . ASSESSMENTS OTHER CHRONIC PAIN - G89.29 (PRIMARY) ABDOMINAL PAIN OF UNKNOWN CAUSE - R10.9 CHRONIC PRESCRIPTION OPIATE USE - Z79.891 TREATMENT OTHER CHRONIC PAIN REFILL GABAPENTIN CAPSULE, 400 MG, 2 CAPSULE, ORALLY, TID, 30 DAYS, 180 CAPSULE, REFILLS 1 STOP TRAMADOL HCL TABLET, 50 MG, 1 TO 2 TAB, ORALLY, Q4-6 HR NEEDED FOR SEVERE PAIN MDD6 START OXYCODONE-ACETAMINOPHEN TABLET, 10-325 MG, 1 TABLET NEEDED, ORALLY, EVERY 6 HRS NEEDED MDD4, 30 DAYS, 120 NOTES: DISCUSSED NARCOTIC AGREEMENT AND USE OF NARCOTIC PAIN MEDICATION AND GABAPENTIN AT LENGTH TODAY. SHE IS AWARE THAT SHE CANNOT TAKE MORE OF HER GABAPENTIN OR PERCOCET IF SHE VOMITS. SHE IS ALLOWED 4 TABLETS A DAY OF PERCOCET 10/325 AND SHOULD TAKE GABAPENTIN 400 MG 2 CAPSULES 3 TIMES A DAY. PATIENT IS AGREEABLE TO COMPLY. SHE KNOWS THAT SHE CANNOT ADJUST MEDICATIONS ON HER OWN. FOLLOW-UP WILL BE SCHEDULED IN 4-6 WEEKS. PATIENT WILL TAKE TRAMADOL TO [facility] FOR FORMAL WASTING AND FORM WAS GIVEN TO PATIENT. PROCEDURE CODES FA211 ESTABILISHED PATIENT [facility] CHARGE DISPOSITION & COMMUNICATION FOLLOW UP 4-6WKS MED MGMNT/URINE TOX ELECTRONICALLY SIGNED BY CARLOS RUBIO ON 01/24/2021 AT 08:19 AM EST DISCLAIMER : THIS IS A VISIT SUMMARY EXTRACTED FROM THE [email or web address] CHART. IT IS NOT A COPY OF THE [employer] PROGRESS NOTE. MTDD
== END ==
LOC: M PAIN 13:30
PROVIDERS: ATTEND Nurse Practitioner Family
DX: R10.9 Unspecified abdominal pain (principal); G89.29 Other chronic pain; E10.9 Type 1 diabetes mellitus without complications; Z88.1 Allergy status to other antibiotic agents; Z88.8 Allergy status to other drugs, medicaments and biological substances; Z79.4 Long term (current) use of insulin; Z79.891 Long term (current) use of opiate analgesic; Z79.899 Other long term (current) drug therapy

== ENCOUNTER 2021-03-06 15:44 | Emergency (ER) | payer MEDICARE, OTHER ==
[~2021-03-06] VITALS: Ht 160 cm; Wt 42.8 kg
[~2021-03-06 15:44] MED LIST changes: -CAPS25CR TOP; -HUMA100I3 SC; -OXYC10TA3 PO; -POLY17PO18 PO; -SENN-52 PO; -VITA500T40 PO
[2021-03-06] MEDS ORDERED: OXYC10TA3 PO (15:58)
[2021-03-06 16:51] LABS: HEMATOCRIT 40.8 % (36.0-47.0); HEMOGLOBIN 13.1 g/dl (12.0-15.5); MEAN CORPUSCULAR HEMOGLOBIN 34.4 pg (27.0-33.0); MEAN CORPUSCULAR HGB CONC 32.1 g/dl (32.0-36.5); MEAN CORPUSCULAR VOLUME 107.1 fl (80.0-96.0); PLATELET COUNT, AUTOMATED 526 10^3/uL (150-450); RED BLOOD COUNT 3.81 10^6/uL (4.00-5.40); WHITE BLOOD COUNT 12.6 10^3/uL (4.0-10.0)
[2021-03-06 17:25] LABS: AMPHETAMINES LEVEL URINE NEGATIVE (NEGATIVE); BARBITURATES URINE NEGATIVE (NEGATIVE); BENZODIAZEPINES URINE NEGATIVE (NEGATIVE); CANNABINOIDS URINE NEGATIVE (NEGATIVE); COCAINE METABOLITE URINE NEGATIVE (NEGATIVE); METHADONE URINE NEGATIVE (NEGATIVE); OPIATES URINE POSITIVE (NEGATIVE); PHENCYCLIDINE URINE NEGATIVE (NEGATIVE)
[2021-03-06 17:45] LABS: HCG, SERUM QUALITATIVE NEGATIVE (NEGATIVE)
[2021-03-06 17:50] LABS: ACETAMINOPHEN LEVEL < 2.0 UG/ML (10.0-30.0); ALBUMIN 3.3 GM/DL (3.2-5.2); ALT/SGPT 26 U/L (12-78); BILIRUBIN,DIRECT 0.1 MG/DL (0.0-0.2); BILIRUBIN,TOTAL 0.2 MG/DL (0.2-1.0); BLOOD UREA NITROGEN 15 MG/DL (7-18); CALCIUM LEVEL 9.3 MG/DL (8.5-10.1); CARBON DIOXIDE LEVEL 34 MEQ/L (21-32); CHLORIDE LEVEL 101 MEQ/L (98-107); CREATININE FOR GFR 0.56 MG/DL (0.55-1.30); ETHYL ALCOHOL (ETHANOL) < 0.003 % (0.000-0.010); GLOMERULAR FILTRATION RATE > 60.0 (>60); GLUCOSE, FASTING 228 MG/DL (70-100); POTASSIUM SERUM 3.9 MEQ/L (3.5-5.1); SALICYLATE LEVEL < 1.7 MG/DL (5.0-30.0); SODIUM LEVEL 139 MEQ/L (136-145); TOTAL PROTEIN 7.1 GM/DL (6.4-8.2)
[2021-03-06] MEDS ORDERED: VITA500T40 PO (18:50)
[2021-03-06] MEDS ORDERED: CREO24CA PO (18:50)
[2021-03-06] MEDS ORDERED: PANTOPRAZOLE 40MG TAB (PROTONIX) PO ONE (19:55)
[2021-03-06] MEDS ORDERED: GABAPENTIN 400MG CAP PO ONE (19:55)
[2021-03-06] MEDS ORDERED: LEVEMIR (INSULIN DETEMIR) 1 UNITS/0.01ML SC SCH (21:00)
[2021-03-06] MEDS ORDERED: HumaLOG INSULIN (NovoLOG) PER UNIT SC SCH (21:00)
[2021-03-06] MEDS ORDERED: MIRALAX *UNIT DOSE* 17GM PACKET PO ONE (21:40)
[2021-03-06] MEDS ORDERED: CREON-24 CAPSULE PO ONE (21:40)
[2021-03-07 02:27] LABS: RSV AMPLIFICATION NEGATIVE (NEGATIVE)
[2021-03-07 07:08] VITALS: BP 138/80
[2021-03-07] MEDS ORDERED: CREON-24 CAPSULE PO SCH (08:00)
--- NOTE | 2021-03-07 17:58 | ECGEPIP ---
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
== END 2021-03-07 07:10 ==
LOC: M ED 15:44
DX: F32.9 Major depressive disorder, single episode, unspecified (principal); T14.91XA Suicide attempt, initial encounter; E10.9 Type 1 diabetes mellitus without complications; K31.84 Gastroparesis; D64.9 Anemia, unspecified; Z88.1 Allergy status to other antibiotic agents; Z88.8 Allergy status to other drugs, medicaments and biological substances; Z79.4 Long term (current) use of insulin; Z79.899 Other long term (current) drug therapy

== ENCOUNTER → 2021-03-06 | Outpatient (CLI) | payer MEDICARE, OTHER ==
[~2021-03-06] MED LIST changes: +CAPS25CR TOP; -CREO24CA; -HUMA100I14; +HUMA100I14 SC; +HUMA100I3 SC; +OXYC10TA3 PO; +POLY17PO18 PO; +SENN-52 PO; +VITA500T40 PO
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
== END ==
LOC: M PAIN 14:30
PROVIDERS: ATTEND Nurse Practitioner Family
DX: R10.9 Unspecified abdominal pain (principal); E10.9 Type 1 diabetes mellitus without complications; Z88.1 Allergy status to other antibiotic agents; Z88.8 Allergy status to other drugs, medicaments and biological substances; Z79.4 Long term (current) use of insulin; Z79.899 Other long term (current) drug therapy

== ENCOUNTER 2021-03-09 21:03 | Observation (INO) | payer MEDICARE, OTHER ==
[~2021-03-09] VITALS: Ht 160 cm; Wt 41.9 kg
[~2021-03-09 21:03] MED LIST changes: +OXYC10TA3 PO; +VITA500T40 PO
[2021-03-09 22:52] LABS: BASO # 0.1 10^3/uL (0.0-0.2); BASO % 1.3 % (0.0-1.0); EOS # 0.4 10^3/uL (0.0-0.5); EOS % 3.8 % (0.0-3.0); HEMATOCRIT 36.2 % (36.0-47.0); HEMOGLOBIN 11.9 g/dl (12.0-15.5); LYMPH # 2.6 10^3/uL (1.5-5.0); LYMPH % 24.8 % (24.0-44.0); MEAN CORPUSCULAR HEMOGLOBIN 33.8 pg (27.0-33.0); MEAN CORPUSCULAR HGB CONC 32.9 g/dl (32.0-36.5); MEAN CORPUSCULAR VOLUME 102.8 fl (80.0-96.0); MONO # 0.8 10^3/uL (0.0-0.8); NEUTROPHILS # 6.4 10^3/uL (1.5-8.5); NEUTROPHILS % 61.7 % (36.0-66.0); PLATELET COUNT, AUTOMATED 495 10^3/uL (150-450); RED BLOOD COUNT 3.52 10^6/uL (4.00-5.40); WHITE BLOOD COUNT 10.4 10^3/uL (4.0-10.0)
[2021-03-09 23:18] LABS: ALBUMIN 3.1 GM/DL (3.2-5.2); ALT/SGPT 29 U/L (12-78); BILIRUBIN,DIRECT 0.2 MG/DL (0.0-0.2); BILIRUBIN,TOTAL 0.4 MG/DL (0.2-1.0); CK-MB VALUE MASS 3.1 NG/ML (<3.6); CPK CREATINE PHOSPHOKINASE 481 U/L (26-192); MB/CK RELATIVE INDEX 0.64 (< OR =4); TOTAL PROTEIN 6.9 GM/DL (6.4-8.2); TROPONIN I < 0.02 NG/ML (< 0.10)
[2021-03-10 00:23] LABS: C REACTIVE PROTEIN QUANTITATIV 2.56 MG/DL (0.00-0.30)
[2021-03-10] MEDS ORDERED: ISOVUE-370 76% 100ML VIAL As Ordered ONE (00:30)
[2021-03-10 01:00] LABS: ERYTHROCYTE SEDIMENTATION RATE 52 mm/hr (0-20)
--- NOTE | 2021-03-10 01:24 | REPVR ---
PROCEDURE INFORMATION: Exam: CT Abdomen And Pelvis With Contrast Exam date and time: 03/10/2021 12:22 AM Age: 35 years old Clinical indication: Bloating; Abdominal pain; Localized; Left; Prior surgery; Surgery date: 6+ months; Surgery type: Bowel, pancreas; Additional info: Left sided abd pain, bloating per PT. TECHNIQUE: Imaging protocol: Computed tomography of the abdomen and pelvis with contrast. Axial, coronal and sagittal reformatted images were created and reviewed. Radiation optimization: All CT scans at this facility use at least one of these dose optimization techniques: automated exposure control; mA and/or kV adjustment per patient size (includes targeted exams where dose is matched to clinical indication); or iterative reconstruction. Contrast material: ISO; Contrast volume: 100 ml; Contrast route: INTRAVENOUS (IV); COMPARISON: CT ABD/PEL W/IV CONTRAST ONLY 12/14/2020 8:30 PM FINDINGS: Lungs: Mild linear stranding and groundglass at the lung bases, likely due to atelectasis and/or scarring. Mediastinal space: Small hiatal hernia. Liver: Moderate hepatomegaly, similar to prior. Unchanged calcified mass in the right hepatic lobe with areas of heterogeneous enhancement. 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 Gallbladder and bile ducts: Status post cholecystectomy. No biliary ductal dilatation. Pancreas: Status post pancreatectomy. Spleen: Status post splenectomy. Adrenal glands: Normal. No mass. Kidneys and ureters: No mass. No radiodense calculi. No hydronephrosis. Stomach and bowel: Evidence of prior bowel resection. Moderate amount of retained stool in the colon. No obstruction. No bowel wall thickening. No pneumatosis. Appendix: Normal. Intraperitoneal space: No free fluid. No organized fluid collection. No free air. Retroperitoneal space: Grossly unchanged enhancing left retroperitoneal mass. Vasculature: Unremarkable. No aneurysm. Lymph nodes: Small mesenteric lymph nodes, nonspecific in appearance. No pathologically enlarged lymph nodes. Urinary bladder: Mild urinary bladder distention. Reproductive: Unremarkable. Bones/joints: No acute osseous abnormality. Soft tissues: Unremarkable. IMPRESSION: 1. No significant interval change. 2. Additional findings, as above. Electronically signed by: Dawit Lanier On 03/10/2021 01:24:33 AM
[2021-03-10] MEDS ORDERED: HUMA100I3 SC (03:15)
[2021-03-10] MEDS ORDERED: GLUCOSE 4GM CHEW TABLET PO PRN (03:25)
[2021-03-10] MEDS ORDERED: GLUCAGON INJ 1MG VIAL SC PRN (03:25)
[2021-03-10] MEDS ORDERED: ONDANSETRON 4MG/2ML VIAL IV PRN (03:25)
[2021-03-10] MEDS ORDERED: DEXTROSE 50% 50 ML SYRINGE IV PRN (03:25)
[2021-03-10] MEDS ORDERED: NS 500 ML IV ONE (03:45)
[2021-03-10] MEDS: MIRALAX *UNIT DOSE* 17GM PACKET PO SCH (04:17)
[2021-03-10] MEDS: SENOKOT S TAB PO SCH ×2 (04:17→21:53)
[2021-03-10] MEDS: SIMETHICONE 80MG CHEW TAB PO SCH ×3 (04:17→21:53)
[2021-03-10 04:45] VITALS: BP 126/76
[2021-03-10] MEDS: ACETAMINOPHEN TAB 650MG DOSE (2X325MG) PO PRN ×3 (04:53→21:54)
[2021-03-10 06:00] VITALS: BP 126/79
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
[2021-03-10] MEDS: HumaLOG INSULIN (NovoLOG) PER UNIT SC SCH ×5 (08:28→17:30)
[2021-03-10] MEDS: PANTOPRAZOLE 40MG TAB (PROTONIX) PO SCH ×2 (08:29→21:53)
[2021-03-10] MEDS: GABAPENTIN 400MG CAP PO SCH ×3 (08:29→21:53)
--- NOTE | 2021-03-10 08:56 | ECGEPIP ---
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
[2021-03-10] MEDS ORDERED: SENOKOT S TAB PO SCH (09:00)
[2021-03-10] MEDS ORDERED: DOCUSATE SODIUM 100MG CAPSULE PO SCH (09:00)
[2021-03-10] MEDS ORDERED: MIRALAX *UNIT DOSE* 17GM PACKET PO SCH (09:00)
[2021-03-10] MEDS ORDERED: FLUoxetine 20 MG CAP PO SCH (09:00)
[2021-03-10] MEDS ORDERED: SIMETHICONE 80MG CHEW TAB PO SCH (09:00)
[2021-03-10] MEDS ORDERED: LEVEMIR (INSULIN DETEMIR) 1 UNITS/0.01ML SC SCH (09:00)
[2021-03-10 09:22] LABS: ALT/SGPT 32 U/L (12-78); BILIRUBIN,TOTAL 0.3 MG/DL (0.2-1.0); BLOOD UREA NITROGEN 5 MG/DL (7-18); CALCIUM LEVEL 8.6 MG/DL (8.5-10.1); CARBON DIOXIDE LEVEL 30 MEQ/L (21-32); CHLORIDE LEVEL 103 MEQ/L (98-107); CREATININE FOR GFR 0.54 MG/DL (0.55-1.30); GLOMERULAR FILTRATION RATE > 60.0 (>60); GLUCOSE, FASTING 258 MG/DL (70-100); POTASSIUM SERUM 4.4 MEQ/L (3.5-5.1); SODIUM LEVEL 137 MEQ/L (136-145); TOTAL PROTEIN 6.7 GM/DL (6.4-8.2)
[2021-03-10 09:27] LABS: HEMATOCRIT 37.1 % (36.0-47.0); HEMOGLOBIN 12.1 g/dl (12.0-15.5); MEAN CORPUSCULAR HEMOGLOBIN 33.9 pg (27.0-33.0); MEAN CORPUSCULAR HGB CONC 32.6 g/dl (32.0-36.5); MEAN CORPUSCULAR VOLUME 103.9 fl (80.0-96.0); PLATELET COUNT, AUTOMATED 498 10^3/uL (150-450); RED BLOOD COUNT 3.57 10^6/uL (4.00-5.40); WHITE BLOOD COUNT 6.4 10^3/uL (4.0-10.0)
[2021-03-10] MEDS: CREON-24 CAPSULE PO SCH ×3 (10:42→18:37)
[2021-03-10] MEDS ORDERED: MORPHINE 2 MG/ML 1ML VIAL (J2270) IV ONE ×2 (11:15→14:25)
[2021-03-10 14:00] VITALS: BP 137/88
[2021-03-10] MEDS ORDERED: diphenhydrAMINE 50MG/ML VIAL (J1200) IM ONE (20:40)
[2021-03-10] MEDS ORDERED: HumaLOG INSULIN (NovoLOG) PER UNIT SC SCH ×2 (21:00)
[2021-03-10] MEDS ORDERED: diphenhydrAMINE 25MG CAP PO ONE (21:05)
[2021-03-10] MEDS: LEVEMIR (INSULIN DETEMIR) 1 UNITS/0.01ML SC SCH (21:54)
[2021-03-10] MEDS: CAPSAICIN 0.025% CR 60 GM TOP SCH (21:55)
[2021-03-10 22:00] VITALS: BP 125/75
[2021-03-10] MEDS: PERCOCET 5MG/325MG TAB PO PRN (22:37)
[2021-03-11 05:58] LABS: HEMATOCRIT 39.7 % (36.0-47.0); HEMOGLOBIN 13.1 g/dl (12.0-15.5); MEAN CORPUSCULAR HEMOGLOBIN 34.6 pg (27.0-33.0); MEAN CORPUSCULAR VOLUME 104.7 fl (80.0-96.0); PLATELET COUNT, AUTOMATED 480 10^3/uL (150-450); RED BLOOD COUNT 3.79 10^6/uL (4.00-5.40); WHITE BLOOD COUNT 6.3 10^3/uL (4.0-10.0)
[2021-03-11 06:00] VITALS: BP 140/89
[2021-03-11 06:29] LABS: ALBUMIN 2.8 GM/DL (3.2-5.2); ALT/SGPT 27 U/L (12-78); BILIRUBIN,TOTAL < 0.1 MG/DL (0.2-1.0); BLOOD UREA NITROGEN 11 MG/DL (7-18); CALCIUM LEVEL 9.2 MG/DL (8.5-10.1); CARBON DIOXIDE LEVEL 32 MEQ/L (21-32); CHLORIDE LEVEL 105 MEQ/L (98-107); CREATININE FOR GFR 0.44 MG/DL (0.55-1.30); GLOMERULAR FILTRATION RATE > 60.0 (>60); GLUCOSE, FASTING 45 MG/DL (70-100); POTASSIUM SERUM 4.2 MEQ/L (3.5-5.1); SODIUM LEVEL 138 MEQ/L (136-145); TOTAL PROTEIN 6.9 GM/DL (6.4-8.2)
[2021-03-11] MEDS: HumaLOG INSULIN (NovoLOG) PER UNIT SC SCH (07:30)
[2021-03-11] MEDS ORDERED: PROZ20CA11 PO (08:14)
[2021-03-11] MEDS ORDERED: CAPS25CR TOP (08:14)
[2021-03-11] MEDS ORDERED: POLY17PO18 PO (08:14)
[2021-03-11] MEDS ORDERED: SENN-52 PO (08:14)
[2021-03-11] MEDS: LEVEMIR (INSULIN DETEMIR) 1 UNITS/0.01ML SC SCH (08:39)
[2021-03-11] MEDS: CREON-24 CAPSULE PO SCH (08:52)
[2021-03-11] MEDS: MIRALAX *UNIT DOSE* 17GM PACKET PO SCH (08:52)
[2021-03-11] MEDS: PANTOPRAZOLE 40MG TAB (PROTONIX) PO SCH (08:53)
[2021-03-11] MEDS: GABAPENTIN 400MG CAP PO SCH (08:53)
[2021-03-11] MEDS: SIMETHICONE 80MG CHEW TAB PO SCH (08:53)
[2021-03-11] MEDS: SENOKOT S TAB PO SCH (08:53)
[2021-03-11] MEDS: PERCOCET 5MG/325MG TAB PO PRN (08:54)
[2021-03-11] MEDS: CAPSAICIN 0.025% CR 60 GM TOP SCH (08:58)
[2021-03-11] MEDS ORDERED: FLUoxetine 10 MG CAP PO SCH (09:00)
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
== END 2021-03-11 11:39 | disposition home or self-care (01) ==
LOC: M ED 21:03 → M ED INP 21:04 → ENRESERV 03-10 03:58 → M MSPAV 03-10 04:45
PROVIDERS: ADMIT Family Medicine; ATTEND Internal Medicine
DX: E10.43 Type 1 diabetes mellitus with diabetic autonomic (poly)neuropathy (principal); K59.00 Constipation, unspecified; K86.1 Other chronic pancreatitis; D50.9 Iron deficiency anemia, unspecified; R00.0 Tachycardia, unspecified; K21.9 Gastro-esophageal reflux disease without esophagitis; F41.9 Anxiety disorder, unspecified; F32.9 Major depressive disorder, single episode, unspecified; M79.7 Fibromyalgia; Z79.4 Long term (current) use of insulin; Z88.0 Allergy status to penicillin; Z88.8 Allergy status to other drugs, medicaments and biological substances; Z79.899 Other long term (current) drug therapy
CPT/HCPCS: 36415; 74177; 80047; 80053; 80076; 81001; 82550; 82553; 82947; 83605; 84484; 84702; 85025; 85027; 85379; 85652; 86140; 87086; 87798; 93005; 96361; 96374; 96375; 96376; 99285; G0378; J2270; J2405; Q9967

== ENCOUNTER → 2021-03-16 | Outpatient (CLI) | payer MEDICARE, OTHER ==
[~2021-03-16] MED LIST changes: +CAPS25CR TOP; +HUMA100I3 SC; +POLY17PO18 PO; +SENN-52 PO
--- NOTE | 2021-03-17 23:16 | ECWPNPC ---
PATIENT NAME: SARAVANAN VELOZ : 1985 GENDER: FEMALE VISIT DATE: 03/16/2021 DISCHARGE DATE: 03/16/21 1118 VISIT LOCKED DATE TIME: PHYSICIAN: CHARANJIT BUSH RESOURCE: CHARANJIT BUSH REASON FOR APPOINTMENT 1. DISCUSS MEDICATIONS HISTORY OF PRESENT ILLNESS GENERAL: PATIENT IS AGREEABLE TO TELEPHONE VISIT TODAY. HAS BEEN RECENTLY DISCHARGED FROM OUR HOSPITAL FOR ABDOMINAL PAIN AND DIARRHEA. SHE WAS TAKEN TO THE EMERGENCY ROOM DUE TO OVERDOSING ON HER OXYCODONE AND GABAPENTIN AND STATING THAT SHE DIDN'T KNOW THAT MAYBE SHE WAS TRYING TO COMMIT SUICIDE. DUE TO THE FACT THAT INPATIENT MENTAL HEALTH WAS AT CAPACITY SHE WAS SENT TO [facility] IN [place]. STATES SHE WAS THERE FOR A FEW NIGHTS. THEY ADMITTED HER TO A MEDICAL FLOOR TO EVALUATE FOR SEVERE DIARRHEA. [facility] CAME TO VISIT HER THERE ON THE MEDICAL FLOOR AND DID NOT FEEL THAT SHE WAS SUICIDAL OR HOMICIDAL. SHE IS IN THE PROCESS OF GETTING MENTAL HEALTH SERVICES STARTED ON POST. SHE IS AWARE THAT I WILL NOT BE PRESCRIBING ANY MEDICATIONS FOR PAIN DUE TO OVERTAKING PAIN MEDICATION ON 2 OCCASIONS RECENTLY AT PAIN CENTER. -. FALL RISK SCREENING: SCREENING : NO FALLS REPORTED IN THE LAST YEAR. PAIN SCREENING: PATIENT HAS A COMPLAINT OF ACUTE OR CHRONIC PAIN :YES LOCATION OF PAIN:ABDOMEN INTENSITY OF PAIN (SCALE OF 1 TO 10):6 WHAT DOES YOUR PAIN FEEL LIKE:SHARP, STABBING LEFT LOWER ABDOMINAL DURATION:CONTINOUS PAIN IS INCREASED BY:ACTIVITIES, PROLONGED STANDING PAIN IS DECREASED BY:USE OF PAIN MEDICATIONS, SITTING TRAMADOL WAS HELPING, HEAT, PATCHES NURSING NOTE: -. PAIN CENTER INTAKE QUESTIONS: DO YOU HAVE A HISTORY OF MRSA? :NO DO YOU TAKE A BLOOD THINNERS? :NO DO YOU HAVE ANY BLEEDING DISORDERS? :NO ANY NEW NUMBNESS OR WEAKNESS IN YOUR LEGS OR ARMS? :NO ANY PACEMAKER,DEFIBRILLATOR, OR DORSAL COLUMN STIMULATOR? :NO DO YOU HAVE ANY RASHES OR OPEN SORES? :NO ARE YOU ALLERGIC TO IV DYE? :NO ARE YOU DIABETIC? :YES TYPE I ANY NEW PROBLEMS WITH YOUR MEDICATIONS? :YES DOES NOT WANT TO BE ON OXYCODONE HAVE YOU RECEIVED A VACCINE IN THE PAST 30 DAYS? :YES IF SO WHAT VACCINE AND WHEN? SECOND COVID VACCINATION 02/09/2021 DO YOU PLAN TO RECEIVE A VACCINE IN THE NEXT 21 DAYS? :NO DO YOU NEED ANY PRESCRIPTION? :YES WILL DISCUSS WITH PROVIDER DO YOU TAKE ANY IMMUNOSUPPRESSIVE MEDICATIONS? :NO DO YOU HAVE ANY KIDNEY OR LIVER DISEASE? :NO IS THERE A CHANCE YOU COULD BE ? :NO ARE YOU BREAST FEEDING? :NO CURRENT MEDICATIONS TAKING CREON 20 24,000 UNITS ORALLY WITH MEALS TAKING VITAMIN B 12 TAKING HUMALOG KWIKPEN TAKING TRESIBA FLEXTOUCH TAKING JUNEL 12/21 TAKING PANTOPRAZOLE SODIUM 40 MG TABLET DELAYED RELEASE 1 TABLET ORALLY BID TAKING SUCRALFATE 1 GM TABLET 1 TABLET ON AN EMPTY STOMACH ORALLY TID TAKING PROZAC 20 MG CAPSULE 1 CAPSULE ORALLY ONCE A DAY TAKING GABAPENTIN 400 MG CAPSULE 2 CAPSULE ORALLY TID NOT-TAKING NALOXONE HCL 4 MG/10ML SOLUTION DIRECTED INJECTION NOT-TAKING OXYCODONE-ACETAMINOPHEN 10-325 MG TABLET 1 TABLET NEEDED ORALLY EVERY 6 HRS NEEDED MDD4, NOTES: STOPPED TAKING 03/11/2021 UNKNOWN SOMA 350 MG TABLET 1 TAB ORALLY BID UNKNOWN TRAMADOL HCL 100 MG TABLET 1 TABLET NEEDED ORALLY THREE TIMES A DAY MDD3 UNKNOWN CYMBALTA 20 MG PO ONCE DAILY UNKNOWN ONDANSETRON 4 MG TABLET DISINTEGRATING 1 TABLET ON THE TONGUE AND ALLOW TO DISSOLVE ORALLY ONCE A DAY UNKNOWN GABAPENTIN 800 MG TABLET 1 CAPSULE ORALLY TID UNKNOWN TRAMADOL HCL ER 100 MG CAPSULE EXTENDED RELEASE 24 HOUR 50MG ORALLY THREE TIMES DAILY UNKNOWN BACTRIM DS 800-160 MG TABLET 1 TABLET ORALLY DIRECTED- 1 HOUR PRIOR TO CYSTOSCOPY UNKNOWN PAXIL 20 MG TABLET 1 TABLET IN THE MORNING ORALLY ONCE A DAY UNKNOWN NEXIUM 20 MG CAPSULE DELAYED RELEASE 1 CAPSULE ORALLY ONCE A DAY UNKNOWN NEURONTIN 600 MG TABLET 1 TABLET ORALLY ONCE A DAY, NOTES: 2100 MG DAILY UNKNOWN NOVOLOG UNKNOWN CIPRO 500 MG TABLET 1 TABLET ORALLY TWICE A DAY UNKNOWN XIFAXAN 200 MG TABLET 2 TABLETS ORALLY THREE TIMES A DAY MEDICATION LIST REVIEWED AND RECONCILED WITH THE PATIENT PAST MEDICAL HISTORY DM TYPE 1 HX OF PANCREATITIS HX OF GASTROPARESIS ANEMIA MALABSORPTION ALLERGIES AMOXICILLIN: NAUSEA/VOMITING - ALLERGY REGLAN: ANXIETY - ALLERGY DILAUDID: HIVES - ALLERGY SURGICAL HISTORY NERVE BLOCKS X2(ABD) PATIENT LIVER WAS OUTSIDE THE BODY AND WAS FIXED AND APPENDIX REMOVED AT ABDOMINAL SURGERY AGE 8 PANCREAS SURGERY AND GALLBLADDER REMOVED AGE 14 REMOVED PANCREAS,SPLEEN AND SOME SMALL INTESTINE, APPENDIX AGE 22 DILATED BILE DUCT 12/2020 SOCIAL HISTORY GENERAL: TOBACCO USE ARE YOU A:NONSMOKER LATEX QUESTIONNAIRE LATEX ALLERGY : HAVE YOU EVER DEVELOPED ANY TYPE OF REACTION AFTER HANDLING LATEX PRODUCTS SUCH RUBBER GLOVES, CONDOMS, DIAPHRAGMS, BALLOONS, SOCKS, OR UNDERWEAR?NO LATEX ALLERGY : HAVE YOU EVER DEVELOPED ANY TYPE OF REACTION DURING OR AFTER DENTAL APPOINTMENT, VAGINAL/RECTAL EXAMINATION, SURGICAL PROCEDURE, OR ANY OTHER EXPOSURE?NO LATEX RISK : HAVE YOU EVER HAD ANY DIFFICULTY BREATHING OR HIVES AFTER EATING OR HANDLING ANY FRUITS, OR VEGETABLES; SUCH KIWI, BANANAS, STONE FRUITS, OR CHESTNUTSNO LATEX RISK : DO YOU HAVE A PREVIOUS PERSONAL HISTORY OF MORE THAN NINE SURGERIES, SPINA BIFIDA, OR REPEATED CATHERIZATIONS? YES - PLEASE INDICATE : > 9 SURGERIES LATEX RISK : ARE YOU FREQUENTLY EXPOSED TO LATEX PRODUCTS IN YOUR OCCUPATION?NO DATE ASKED : 03/16/2021 ALCOHOL USE: NO. ALCOHOL SCREENING DID YOU HAVE A DRINK CONTAINING ALCOHOL IN THE PAST YEAR?NO POINTS0 INTERPRETATIONNEGATIVE RECREATIONAL DRUG USE DRUG USE?NO CAFFEINE CAFFEINE USE?YES HOW OFTEN AND HOW MUCH? SOMETIMES SEXUAL HX HAD SEX IN THE LAST 12 MONTHS (VAGINAL, ORAL, OR ANAL)?YES WITHMEN ONLY HAVE YOU EVER HAD AN STD?YES CHLAMYDIA?YES VOODOO [id number] AGNOSTIC LANGUAGE LANGUAGES SPOKEN:OCCITAN LEARNING BARRIERS / SPECIAL NEEDS CHANGE FROM LAST VISIT?NO BARRIERS TO LEARNING?NO HEARING IMPAIRED?NO VISION IMPAIRED?YES :CORRECTIVE LENSES COGNITIVELY IMPAIRED?NO READINESS TO LEARN?YES LEARNING PREFERENCES?NO LEARNING CAPABILITIES PRESENT?YES EMOTIONAL BARRIERS?YES ANXIETY AND DEPRESSION SPECIAL DEVICES?NO FENCE REPAIRMAN NEEDED?NO DOMESTIC VIOLENCE DO YOU FEEL SAFE IN YOUR ENVIRONMENT?YES OCCUPATION: DISABLED. MARITAL STATUS: . - HAS THE PATIENT BEEN EDUCATED REGARDING HIS/HER PLAN OF CARE?YES HAS THE PATIENT BEEN EDUCATED REGARDING PAIN, THE RISK FOR PAIN, THE IMPORTANCE OF EFFECTIVE PAIN MANAGEMENT, AND THE PAIN ASSESSMENT PROCESS?YES ADVANCE DIRECTIVE ADVANCE DIRECTIVE DISCUSSED WITH PATIENT:YES DECLINED, DECLINED PAPERWORK HOSPITALIZATION/MAJOR DIAGNOSTIC PROCEDURE SURGERY DM X MULTIPLE [facility] 03/2021 [facility] 03/2021 REVIEW OF SYSTEMS CONSTITUTIONAL: ANY RECENT FEVER NO . CHILLS NO . WEIGHT CHANGE OF UNKNOWN REASONS NO . GASTROENTEROLOGY: NEW UNEXPLAINABLE CHANGES IN BOWEL CONTROL NO . CONSTIPATION NO . GENITOURINARY: ANY NEW CHANGE IN BLADDER CONTROL? NO . NEUROLOGY: NEW ONSET DIZZINESS OR NEUROLOGICAL CHANGES NOT MENTIONED NO . NEW NUMBNESS OR PAIN PATTERNS NOT MENTIONED AND PERTINENT TO TODAY'S VISIT NO . CARDIOLOGY: NEW CHEST PRESSURE NO . PATIENT DENIES NO . RESPIRATORY: UNEXPLAINABLE COUGH NO . NEW SHORTNESS OF BREATH NO . VITAL SIGNS WT 94 LBS, HT 63 IN, BMI 16.65 INDEX, SAFE IN ENV? (Y/N) YES, REVIEWED BY: JULIO WHITMORE MA. ASSESSMENTS ABDOMINAL PAIN OF UNKNOWN CAUSE - R10.9 (PRIMARY) CHRONIC PRESCRIPTION OPIATE USE - Z79.891 TREATMENT ABDOMINAL PAIN OF UNKNOWN CAUSE NOTES: SHE WILL BE GETTING HELP WITH PAIN FROM DR. DISPOSITION & COMMUNICATION FOLLOW UP NO F/U NEEDED (REASON: ABD PAIN) ELECTRONICALLY SIGNED BY CARLOS RUBIO ON 03/17/2021 AT 01:09 PM EDT DISCLAIMER : THIS IS A VISIT SUMMARY EXTRACTED FROM THE [employer] CHART. IT IS NOT A COPY OF THE [employer] PROGRESS NOTE. JERRY
== END ==
LOC: M PAIN 14:30
PROVIDERS: ATTEND Nurse Practitioner Family
DX: R10.9 Unspecified abdominal pain (principal); E10.9 Type 1 diabetes mellitus without complications; Z88.1 Allergy status to other antibiotic agents; Z88.8 Allergy status to other drugs, medicaments and biological substances; Z79.4 Long term (current) use of insulin; Z79.899 Other long term (current) drug therapy

== ENCOUNTER 2021-08-29 17:06 | Emergency (ER) | payer OTHER, MEDICARE ==
[~2021-08-29] VITALS: Ht 160 cm; Wt 42.1 kg
[~2021-08-29 17:06] MED LIST changes: +GABA-283 PO; -GABA-845 PO
[2021-08-29] MEDS ORDERED: NS 1,000 ML IV ONE ×2 (19:15→22:20)
[2021-08-29 19:59] LABS: VENOUS BASE EXCESS -4.4 (-2.0-2.0); VENOUS HCO3 20.6 MEQ/L (23.0-27.0); VENOUS O2 SATURATION 88.4 % (60.0-80.0); VENOUS PARTIAL PRESSURE CO2 37.7 mmHg (38.0-50.0); VENOUS PARTIAL PRESSURE O2 72.8 mmHg (30.0-50.0); VENOUS PH 7.356 UNITS (7.330-7.430); VENOUS STANDARD HCO3 20.7 MEQ/L; VENOUS TOTAL CO2 21.8 MEQ/L (24.0-28.0)
[2021-08-29 20:00] VITALS: O2SAT 94
[2021-08-29 20:13] LABS: BASO # 0.1 10^3/uL (0.0-0.2); BASO % 0.7 % (0.0-1.0); EOS % 0.3 % (0.0-3.0); HEMATOCRIT 38.3 % (36.0-47.0); HEMOGLOBIN 12.7 g/dl (12.0-15.5); LYMPH # 3.1 10^3/uL (1.5-5.0); LYMPH % 30.9 % (24.0-44.0); MEAN CORPUSCULAR HEMOGLOBIN 34.5 pg (27.0-33.0); MEAN CORPUSCULAR HGB CONC 33.2 g/dl (32.0-36.5); MEAN CORPUSCULAR VOLUME 104.1 fl (80.0-96.0); MONO # 0.5 10^3/uL (0.0-0.8); MONO % 4.8 % (2.0-8.0); NEUTROPHILS # 6.3 10^3/uL (1.5-8.5); PLATELET COUNT, AUTOMATED 539 10^3/uL (150-450); RED BLOOD COUNT 3.68 10^6/uL (4.00-5.40); WHITE BLOOD COUNT 9.9 10^3/uL (4.0-10.0)
[2021-08-29 20:23] LABS: HEMOGLOBIN A1c 7.1 %
[2021-08-29 20:44] LABS: HCG, SERUM QUALITATIVE NEGATIVE (NEGATIVE)
[2021-08-29 21:20] LABS: ACETONE/KETONE 23.38 MG/DL (<2.81); ALT/SGPT 23 U/L (12-78); BILIRUBIN,DIRECT 0.2 MG/DL (0.0-0.2); BILIRUBIN,TOTAL 0.4 MG/DL (0.2-1.0); BLOOD UREA NITROGEN 12 MG/DL (7-18); CALCIUM LEVEL 8.1 MG/DL (8.5-10.1); CARBON DIOXIDE LEVEL 25 MEQ/L (21-32); CHLORIDE LEVEL 103 MEQ/L (98-107); CREATININE FOR GFR 0.71 MG/DL (0.55-1.30); GLOMERULAR FILTRATION RATE > 60.0 (>60); GLUCOSE, FASTING 342 MG/DL (70-100); LIPASE 13 U/L (73-393); POTASSIUM SERUM 4.7 MEQ/L (3.5-5.1); SODIUM LEVEL 135 MEQ/L (136-145); TOTAL PROTEIN 6.1 GM/DL (6.4-8.2)
--- NOTE | 2021-08-29 21:31 | REPVR ---
PROCEDURE INFORMATION: Exam: XR Chest Exam date and time: 08/29/2021 7:15 PM Age: 36 years old Clinical indication: Other: Dka TECHNIQUE: Imaging protocol: XR of the chest. Views: 1 view. COMPARISON: CR Abdomen,Flat Upright,PA CHEST 12/14/2020 7:12 PM FINDINGS: Lungs: Unremarkable. No consolidation. Pleural spaces: Unremarkable. No pleural effusion. No pneumothorax. Heart/Mediastinum: Unremarkable. No cardiomegaly. Bones/joints: Unremarkable. Intraperitoneal space: Multiple surgical clips in the upper abdomen. IMPRESSION: No acute findings. Electronically signed by: Micheal Umana On 08/29/2021 21:30:44 PM
[2021-08-29] MEDS ORDERED: HumuLIN R (REGULAR) INSULIN (NovoLIN R) **100U/ML** PER UNIT IV ONE (21:35)
[2021-08-29] MEDS ORDERED: HALOPERIDOL 5MG/ML VIAL (J1630 PER 1) IV ONE (22:05)
[2021-08-29 23:45] VITALS: BP 138/77
--- NOTE | 2021-08-31 07:34 | ECGEPIP ---
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
== END 2021-08-30 00:04 | disposition home or self-care (01) ==
LOC: M ED 17:06
DX: E10.65 Type 1 diabetes mellitus with hyperglycemia (principal); E10.43 Type 1 diabetes mellitus with diabetic autonomic (poly)neuropathy; R10.9 Unspecified abdominal pain; R00.0 Tachycardia, unspecified; D64.9 Anemia, unspecified; K21.9 Gastro-esophageal reflux disease without esophagitis; F32.9 Major depressive disorder, single episode, unspecified; F41.9 Anxiety disorder, unspecified; Z88.1 Allergy status to other antibiotic agents; Z79.4 Long term (current) use of insulin; Z79.899 Other long term (current) drug therapy
CPT/HCPCS: 71045; 80048; 80076; 81001; 82010; 82803; 83036; 83690; 84703; 85025; 87798; 93005; 93041; 94760; 96361; 96374; 99285; J1630

== ENCOUNTER → 2021-09-13 | Outpatient (CLI) | payer OTHER, MEDICARE ==
[~2021-09-13] MED LIST changes: +GASTROGRAFIN SOLUTION 30ML (Q9963) As Ordered ONE; +ISOVUE-370 76% 100ML VIAL As Ordered ONE
--- NOTE | 2021-09-14 09:02 | REP ---
INDICATION: ABD PAIN HYPERDENSITY [place]IF[place] IN ABD MID LATERAL- IV CONTRA COMPARISON: There are no prior chest CTs for comparison. Lung base images from prior CT examination of the abdomen and pelvis of 03/10/2021 reviewed TECHNIQUE: Standard helical technique after the intravenous administration of 100 cc Isovue 370. FINDINGS: There is no mediastinal or hilar adenopathy. There are no pleural or pericardial effusions. The imaged osseous structures are within normal limits. In the right breast there is an 8 mm sized nodule. Evaluation of the lung burns shows no abnormal nodules, masses, or opacities. IMPRESSION: 1. CT examination of the chest is within normal limits. 2. 7 mm size nodule in the right breast. CT cannot effectively evaluate breast lesions. This needs to be correlated clinically and if necessary obtain mammography, ultrasound, and breast MRI. <Electronically signed by Urban Sanderson > 09/14/21 [id number]
--- NOTE | 2021-09-14 09:23 | REP ---
INDICATION: ABD PAIN HYPERDENSITY CALIFICA IN ABD MID LATERAL. COMPARISON: Multiple the latest 03/10/2021. TECHNIQUE: Standard helical technique after the intravenous administration of 100 cc Isovue 370. oral bowel preparatory contrast was also administered prior to the exam. FINDINGS: The liver is unchanged. Note is again made of a peripherally calcified centrally low-density lesion in the right edge of the liver status quo. The patient is status post splenectomy, however, there is an unchanged round 3.1 cm sized enhancing nodule in the left lower lobe having the appearance of a splenule or splenic regeneration. There is no significant change in the appearance of the abdominal aorta or para-aortic regions. There is no significant change in appearance of the bowel loops or the mesenteries. No new mass or adenopathy has developed. The pancreas is not visualized. By history the patient is status post pancreatectomy. The kidneys are unchanged. There is no evidence of free fluid or free air. Bone window technique throughout the examination shows no significant change in appearance of the osseous structures. IMPRESSION: There has been no significant change compared to the prior exams with findings as described above. <Electronically signed by Urban Sanderson > 09/14/21 [id number]
== END ==
LOC: M RAD 16:10
PROVIDERS: ATTEND Student in an Organized Health Care Education/Training Program
DX: R10.9 Unspecified abdominal pain (principal)
CPT/HCPCS: 71260; 74177; Q9963; Q9967